=== PATIENT | female | born 1935 | race Caucasian/White ===

== ENCOUNTER 2016-11-19 12:16 | Observation (INO) | payer MEDICARE, BC ==
[2016-11-19 12:17] VITALS: BP 140/65; PULSE 88; RESP 14; TEMP 97.9; O2SAT 94
[2016-11-19 12:26] VITALS: BP 130/79; PULSE 74; RESP 16; TEMP 98; O2SAT 94
[2016-11-19] MEDS ORDERED: DILA30CA PO (12:35)
[2016-11-19] MEDS ORDERED: GABA300C5 PO (12:35)
[2016-11-19] MEDS ORDERED: PHEN-522 PO (12:35)
--- NOTE | 2016-11-19 12:38 | PD ---
HPI Chief Complaint: Chest Pain Time Seen by Provider: 12:34 Travel History International Travel<30 days: No Contact w/Intl Traveler<30days: No Traveled to known affect area: No History of Present Illness HPI 81-year-old female presents to the emergency department for evaluation of left- sided neck pain that radiates to her left arm. She states has been ongoing for 1 week. Patient states it is intermittent. She states at first, it was worse with movement of her neck, but it is no longer worse with movement. She denies any fevers or chills. No cough or congestion. She denies any abdominal pain. No nausea or vomiting. She denies any chest pain. She has a history of epilepsy and chronic back pain. She states she currently takes phenobarbital, Dilantin, oxycodone, and diclofenac patient denies any history of RI. She denies any history of diabetes. Patient states she cannot take blood thinners due to GI bleed, but does take a baby aspirin daily. She states she took one this morning. Patient denies any other complaints at this time. PFSH Past Medical History Medical other: Yes (EPILEPSY) Past Surgical History Cholecystectomy: Yes Social History Alcohol Use: No Tobacco Use: No Substance Use: No Allergies-Medications (Allergen,Severity, Reaction): Coded Allergies: No Known Allergies (Unverified , 11/19/16) Reported Meds & Prescriptions Reported Meds & Active Scripts Active Reported Diclofenac Sodium ER 24 HR (Diclofenac Sodium) 100 Mg Yg 100 Mg PO DAILY Gabapentin 300 Mg Cap 300 Mg PO TID Dilantin (Phenytoin Extended) 30 Mg Cap 100 Mg PO BID Phenobarbital 15 Mg Tab 64.8 Mg PO BID Review of Systems Except as stated in HPI: all other systems reviewed are Neg Physical Exam Narrative GENERAL: Well-developed well-nourished elderly female patient, afebrile. SKIN: Warm and dry. HEAD: Normocephalic. Atraumatic. EYES: No scleral icterus. No injection or drainage. NECK: Supple, trachea midline. No JVD or lymphadenopathy. CARDIOVASCULAR: Regular rate and rhythm without murmurs, gallops, or rubs. RESPIRATORY: Breath sounds equal bilaterally. No accessory muscle use. Lungs sounds are clear to auscultation GASTROINTESTINAL: Abdomen soft, non-tender, nondistended. MUSCULOSKELETAL: No cyanosis, or edema. BACK: Nontender without obvious deformity. No CVA tenderness. Data Data Last Documented VS Vital Signs Date Time Temp Pulse Resp B/P Pulse Ox O2 Delivery O2 Flow Rate FiO2 11/19/16 12:39 18 95 Room Air 11/19/16 12:39 77 130/79 124/70 11/19/16 12:26 98.0 Orders Electrocardiogram (11/19/16 ) Basic Metabolic Panel (Bmp) (11/19/16 12:33) Ckmb (Isoenzyme) Profile (11/19/16 12:33) Complete Blood Count With Diff (11/19/16 12:33) Magnesium (Mg) (11/19/16 12:33) Troponin I (11/19/16 12:33) Chest, Single Ap (11/19/16 12:33) Ecg Monitoring (11/19/16 12:33) Bilateral Bp Monitoring (11/19/16 12:33) Iv Access Insert/Monitor (11/19/16 12:33) Oximetry (11/19/16 12:33) Oxygen Administration (11/19/16 12:33) Sodium Chloride 0.9% Flush (Ns Flush) (11/19/16 12:45) Phenytoin (Dilantin) (11/19/16 12:33) Aspirin Chew (Aspirin Chew) (11/19/16 12:45) Ketorolac Inj (Toradol Inj) (11/19/16 13:00) Admit Order (Ed Use Only) (11/19/16 13:51) Labs Laboratory Tests Test 11/19/16 12:44 White Blood Count 5.3 TH/MM3 Red Blood Count 4.58 MIL/MM3 Hemoglobin 13.6 GM/DL Hematocrit 40.2 % Mean Corpuscular Volume 87.9 FL Mean Corpuscular Hemoglobin 29.6 PG Mean Corpuscular Hemoglobin 33.7 % Concent Red Cell Distribution Width 13.6 % Platelet Count 249 TH/MM3 Mean Platelet Volume 7.9 FL Neutrophils (%) (Auto) 56.0 % Lymphocytes (%) (Auto) 29.4 % Monocytes (%) (Auto) 9.1 % Eosinophils (%) (Auto) 4.1 % Basophils (%) (Auto) 1.4 % Neutrophils # (Auto) 3.0 TH/MM3 Lymphocytes # (Auto) 1.6 TH/MM3 Monocytes # (Auto) 0.5 TH/MM3 Eosinophils # (Auto) 0.2 TH/MM3 Basophils # (Auto) 0.1 TH/MM3 CBC Comment DIFF FINAL Differential Comment Sodium Level 140 MEQ/L Potassium Level 3.9 MEQ/L Chloride Level 107 MEQ/L Carbon Dioxide Level 24.2 MEQ/L Anion Gap 9 MEQ/L Blood Urea Nitrogen 12 MG/DL Creatinine 0.73 MG/DL Estimat Glomerular Filtration 77 ML/MIN Rate Random Glucose 89 MG/DL Calcium Level 8.6 MG/DL Magnesium Level 2.1 MG/DL Total Creatine Kinase 75 U/L Troponin I LESS THAN 0.02 NG/ML Phenytoin (Dilantin) Level 7.7 MCG/ML MDM Medical Decision Making Medical Screen Exam Complete: Yes Emergency Medical Condition: Yes Medical Record Reviewed: Yes Interpretation(s) Last Impressions Chest X-Ray 11/19/16 1233 Signed Impressions: Service Date/Time: November 12:32 - CONCLUSION: 1. Left basilar patchiness consistent with atelectasis and/or infiltrate. Clinical correlation is recommended. 2. Degenerative changes throughout the thoracic spine. Austin Mueller MD Differential Diagnosis Musculoskeletal pain versus ACS versus pneumonia versus muscle spasm Narrative Course 81-year-old elderly female presents to the emergency department for evaluation of left neck pain that radiates to her left arm for 1 week. Patient appears well on exam. Patient is given aspirin 81 mg by mouth. CBC, BMP, magnesium, CK , troponin, Dilantin level, chest x-ray are ordered and pending. EKG shows SR without acute ST changes. CBC .shows no acute abnormality. BMP is unremarkable. CK is 75. Troponin is less than 0.02. Magnesium is 2.1. Chest x-ray shows left basilar patchiness consistent with atelectasis and/or infiltrate; degenerative changes throughout the thoracic spine. Patient has no signs/symptoms of pneumonia. Most likely left basilar patchiness is atelectasis. The patient will be brought into the chest pain center to further rule out cardiac origin of pain. The patient is agreeable with this plan. Diagnosis Primary Impression: Neck pain on left side Admitting Information Admitting Physician Requests: Observation Keyonna Duran Nov 19, 2016 12:38 Keyonna Duran Nov 19, 2016 12:38
[2016-11-19 12:39] VITALS: BP_SYST 124; BP_SYST 130; BP_DIAS 70; BP_DIAS 79; PULSE 77; RESP 18; O2SAT 95
[2016-11-19] MEDS ORDERED: ASPIRIN 81 MG CHEW TAB CHEW ONE (12:45)
[2016-11-19] MEDS ORDERED: SODIUM CHLORIDE 0.9% FLUSH 5 ML FLUSH IVF PRN (12:45)
[2016-11-19] MEDS ORDERED: KETOROLAC TROMETHAMINE 30 MG/ML (IVP) VIAL IV PUSH ONE (13:00)
--- NOTE | 2016-11-19 13:05 | RADRPT ---
EXAM DATE/TIME: 11/19/2016 12:32 [facility] COMPARISON: No previous studies available for comparison. INDICATIONS : Back pain on right side MEDICAL HISTORY : None. SURGICAL HISTORY : None. ENCOUNTER: Initial ACUITY: 1 week PAIN SCORE: 0/10 LOCATION: Bilateral chest FINDINGS: Left basilar patchiness is noted consistent with atelectasis and/or infiltrate. Clinical correlation is recommended. The right lung is clear. The heart is normal. The pulmonary vascular pattern is a lso noted. Degenerative changes are noted throughout the thoracic spine. CONCLUSION: 1. Left basilar patchiness consistent with atelectasis and/or infiltrate. Clinical correlation is r ecommended. 2. Degenerative changes throughout the thoracic spine. Austin Mueller MD on November 19, 2016 at 13:00 Board Certified Radiologist. This report was verified electronically.
[2016-11-19 13:08] LABS: BASOPHIL # 0.1 TH/MM3 (0-0.2); BASOPHIL % 1.4 % (0.0-2.0); EOSINOPHIL # 0.2 TH/MM3 (0-0.4); EOSINOPHIL % 4.1 % (0.0-4.0); HEMATOCRIT 40.2 % (35.0-46.0); HEMO FLAGS DIFF FINAL; LYMPH % 29.4 % (9.0-44.0); LYMPHOCYTE # 1.6 TH/MM3 (1.0-4.8); MEAN CELL VOLUME 87.9 FL (80.0-100.0); MEAN CORPUSCULAR HEMOGLOBIN 29.6 PG (27.0-34.0); MEAN CORPUSCULAR HGB CONC 33.7 % (32.0-36.0); MONO % 9.1 % (0.0-8.0); PLATELET COUNT 249 TH/MM3 (150-450); RED BLOOD COUNT 4.58 MIL/MM3 (4.00-5.30); RED CELL DISTRIBUTION WIDTH 13.6 % (11.6-17.2); WHITE BLOOD COUNT 5.3 TH/MM3 (4.0-11.0)
--- NOTE | 2016-11-19 13:22 | PD ---
Physical Exam Date Seen by Provider: Nov 19, 2016 Time Seen by Provider: 13:00 Narrative GENERAL: Well-nourished, well-developed patient in no acute rest her distress. SKIN: Warm and dry. HEAD: Normocephalic/atraumatic. EYES: No scleral icterus. No injection or drainage. NECK: Supple, trachea midline. No JVD . CARDIOVASCULAR: Regular rate and rhythm without murmurs, gallops, or rubs. RESPIRATORY: Breath sounds equal bilaterally. No accessory muscle use. GASTROINTESTINAL: Abdomen soft, non-tender, nondistended. MUSCULOSKELETAL: No cyanosis, or edema. BACK: Nontender without obvious deformity. No CVA tenderness. Data Data Last Documented VS Vital Signs Date Time Temp Pulse Resp B/P Pulse Ox O2 Delivery O2 Flow Rate FiO2 11/19/16 12:39 18 95 Room Air 11/19/16 12:39 77 130/79 124/70 11/19/16 12:26 98.0 Orders Electrocardiogram (11/19/16 ) Basic Metabolic Panel (Bmp) (11/19/16 12:33) Ckmb (Isoenzyme) Profile (11/19/16 12:33) Complete Blood Count With Diff (11/19/16 12:33) Magnesium (Mg) (11/19/16 12:33) Troponin I (11/19/16 12:33) Chest, Single Ap (11/19/16 12:33) Ecg Monitoring (11/19/16 12:33) Bilateral Bp Monitoring (11/19/16 12:33) Iv Access Insert/Monitor (11/19/16 12:33) Oximetry (11/19/16 12:33) Oxygen Administration (11/19/16 12:33) Sodium Chloride 0.9% Flush (Ns Flush) (11/19/16 12:45) Phenytoin (Dilantin) (11/19/16 12:33) Aspirin Chew (Aspirin Chew) (11/19/16 12:45) Ketorolac Inj (Toradol Inj) (11/19/16 13:00) Admit Order (Ed Use Only) (11/19/16 13:51) Labs Laboratory Tests Test 11/19/16 12:44 White Blood Count 5.3 TH/MM3 Red Blood Count 4.58 MIL/MM3 Hemoglobin 13.6 GM/DL Hematocrit 40.2 % Mean Corpuscular Volume 87.9 FL Mean Corpuscular Hemoglobin 29.6 PG Mean Corpuscular Hemoglobin 33.7 % Concent Red Cell Distribution Width 13.6 % Platelet Count 249 TH/MM3 Mean Platelet Volume 7.9 FL Neutrophils (%) (Auto) 56.0 % Lymphocytes (%) (Auto) 29.4 % Monocytes (%) (Auto) 9.1 % Eosinophils (%) (Auto) 4.1 % Basophils (%) (Auto) 1.4 % Neutrophils # (Auto) 3.0 TH/MM3 Lymphocytes # (Auto) 1.6 TH/MM3 Monocytes # (Auto) 0.5 TH/MM3 Eosinophils # (Auto) 0.2 TH/MM3 Basophils # (Auto) 0.1 TH/MM3 CBC Comment DIFF FINAL Differential Comment Sodium Level 140 MEQ/L Potassium Level 3.9 MEQ/L Chloride Level 107 MEQ/L Carbon Dioxide Level 24.2 MEQ/L Anion Gap 9 MEQ/L Blood Urea Nitrogen 12 MG/DL Creatinine 0.73 MG/DL Estimat Glomerular Filtration 77 ML/MIN Rate Random Glucose 89 MG/DL Calcium Level 8.6 MG/DL Magnesium Level 2.1 MG/DL Total Creatine Kinase 75 U/L Troponin I LESS THAN 0.02 NG/ML Phenytoin (Dilantin) Level 7.7 MCG/ML [facility] Medical Record Reviewed: Yes Supervised Visit with ELIO: Yes Differential Diagnosis ACS versus pleurisy versus cervical spine radiculopathy Narrative Course 81-year-old female presents with one-week history of intermittent chest pain. The patient reports left sided pain radiates to her shoulder and down her left arm. Initial EKG shows no evidence of acute process. Creatinine enzymes are within normal limits. The concern is that this is atypical chest pain in a female with true cardiac etiology versus musculoskeletal/radiculopathy. Recommendation is we placed the patient in the chest pain center for rule out protocol. Diagnosis Primary Impression: Cervical radiculopathy Дмитрий Coles MD Nov 19, 2016 13:22
[2016-11-19 13:30] LABS: ANION GAP 9 MEQ/L (5-15); BICARBONATE 24.2 MEQ/L (21.0-32.0); BLOOD UREA NITROGEN 12 MG/DL (7-18); CHLORIDE 107 MEQ/L (98-107); GLOMERULAR FILTRATION RATE 77 ML/MIN (>89); MAGNESIUM 2.1 MG/DL (1.5-2.5); POTASSIUM 3.9 MEQ/L (3.5-5.1); SODIUM (NA) 140 MEQ/L (136-145)
[2016-11-19 13:39] LABS: CREATINE KINASE 75 U/L (26-192)
[2016-11-19] MEDS ORDERED: DICL100T PO (13:41)
--- NOTE | 2016-11-19 14:44 | HHI.DCPOC ---
Discharge Care Plan Diagnosis: (1) Cervical radiculopathy Goals to Promote Your Health * To prevent worsening of your condition and complications * To maintain your health at the optimal level Directions to Meet Your Goals Take your medications as prescribed Follow your dietary instruction Follow activity as directed Keep your appointments as scheduled Take your immunizations and boosters as scheduled If your symptoms worsen call your PCP, if no PCP go to Urgent Care Center or Emergency Room Smoking is Dangerous to Your Health. Avoid second hand smoke Call the 24-hour hour crisis hotline for domestic abuse at Paul Crystal Nov 19, 2016 14:44
--- NOTE | 2016-11-19 15:11 | HHI.HP ---
HPI Primary Care Physician Dain Bishop Chief Complaint Neck and left arm pain History of Present Illness This is a 81-year-old female that presents to ED via private vehicle complaining of neck discomfort that began a week and a half ago. Soon later she also had a burning discomfort going down her left arm radiating from the neck. It was worse with movement. She states she was given medication the ER and the neck discomfort is now gone but still has discomfort in her left arm. Reviewing her records she was given IV Toradol. She had no chest discomfort. Denies shortness of breath nausea or diaphoresis. Denies weakness in her extremities. Denies numbness in her extremities. She states she has arthritis and chronic neck issues. Review of Systems General: Patient denies fevers, chills recent, and recent travel HEENT: Patient denies headache, sore throat, difficulty swallowing. Cardiovascular: Denies chest pain. Denies sensation of heart beating rapidly or irregularly. No syncope. Respiratory: Denies shortness of breath or inspirational chest discomfort. Denies coughing wheezing or hemoptysis. GI: Patient denies nausea, vomiting, diarrhea, abdominal pain, bloody stools. Musculoskeletal: Complains of neck pain more so on the left side rating down her left arm. Hurts more with movement. Squeezing on the arm seems to feel a little better. Patient denies joint pain or edema. Denies calf pain or edema. Neurovascular: Patient denies numbness, tingling, weakness in extremities. Denies headache. Endocrine: Denies polyuria and polydipsia. Hematologic: Denies easy bruising. Skin: Denies rash or itching. Past Family Social History Allergies: Coded Allergies: No Known Allergies (Unverified , 11/19/16) Past Medical History * Seizure disorder however patient states her last seizure was 6 years ago. * Arthritis. * Chronic neck pain. 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 * Denies hypertension, hyperlipidemia, diabetes, and CAD. Reported Medications Reported Meds & Active Scripts Active Reported Gabapentin 300 Mg Cap 300 Mg PO TID Dilantin (Phenytoin Extended) 30 Mg Cap 100 Mg PO BID Phenobarbital 15 Mg Tab 64.8 Mg PO BID Active Ordered Medications Current Medications Medications (Trade) Dose Ordered Sig/Patrice Route Start Time Stop Time Status Last Admin (NS Flush) 2 ml UNSCH PRN IVF 11/19/16 12:45 Family History Denies family history of CAD. Social History Patient does not smoke, drink alcohol, or use illicit drugs. She has been for 61 years. Physical Exam Vital Signs Vital Signs Date Time Temp Pulse Resp B/P Pulse Ox O2 Delivery O2 Flow Rate FiO2 11/19/16 12:39 18 95 Room Air 11/19/16 12:39 77 130/79 124/70 11/19/16 12:39 95 Room Air 11/19/16 12:26 98.0 74 16 130/79 94 11/19/16 12:17 97.9 88 14 140/65 94 Room Air Physical Exam GENERAL: This is a well-nourished, well-developed patient, in no apparent distress. Patient speaks in clear complete sentences. Patient is pleasant. Her and daughter are at the bedside. HEENT: Head is atraumatic and normocephalic. Neck is supple without lymphadenopathy and trachea is midline. No JVD or carotid bruits. CARDIOVASCULAR: Regular rate and rhythm without gallops, or rubs. Grade 1-2 systolic murmur left sternal border. RESPIRATORY: Clear to auscultation. Breath sounds equal bilaterally. No wheezes , rales, or rhonchi. Chest wall is nontender. No use of accessory muscles. GASTROINTESTINAL: Abdomen is nontender, nondistended. Abdomen soft. No obvious pulsatile mass or bruit. No CVA tenderness. Strong femoral pulses bilaterally. Normal bowel sounds in all quadrants. MUSCULOSKELETAL: Patient is moving upper and lower extremities freely. However there is discomfort with rotation of the cervical spine. No discomfort with flexion-extension of the cervical spine. Discomfort that has been radiating down her left arm is worsened with turning of her head. Strong boiler washer strength bilaterally. No calf tenderness or edema, no Homans sign. Strong pulses in upper and lower extremities. NEUROLOGICAL: Patient is alert and oriented. Cranial nerves 2-12 are grossly intact. No focal deficits and speech is clear. Strong boiler washer strength bilaterally. SKIN: No rash and turgor is normal. Laboratory Laboratory Tests Test 11/19/16 12:44 White Blood Count 5.3 Red Blood Count 4.58 Hemoglobin 13.6 Hematocrit 40.2 Mean Corpuscular Volume 87.9 Mean Corpuscular Hemoglobin 29.6 Mean Corpuscular Hemoglobin 33.7 Concent Red Cell Distribution Width 13.6 Platelet Count 249 Mean Platelet Volume 7.9 Neutrophils (%) (Auto) 56.0 Lymphocytes (%) (Auto) 29.4 Monocytes (%) (Auto) 9.1 Eosinophils (%) (Auto) 4.1 Basophils (%) (Auto) 1.4 Neutrophils # (Auto) 3.0 Lymphocytes # (Auto) 1.6 Monocytes # (Auto) 0.5 Eosinophils # (Auto) 0.2 Basophils # (Auto) 0.1 CBC Comment DIFF FINAL Differential Comment Sodium Level 140 Potassium Level 3.9 Chloride Level 107 Carbon Dioxide Level 24.2 Anion Gap 9 Blood Urea Nitrogen 12 Creatinine 0.73 Estimat Glomerular Filtration 77 Rate Random Glucose 89 Calcium Level 8.6 Magnesium Level 2.1 Total Creatine Kinase 75 Troponin I LESS THAN 0.02 Phenytoin (Dilantin) Level 7.7 Result Diagram: 11/19/16 1244 11/19/16 1244 Imaging Last Impressions Chest X-Ray 11/19/16 1233 Signed Impressions: Service Date/Time: November 12:32 - CONCLUSION: 1. Left basilar patchiness consistent with atelectasis and/or infiltrate. Clinical correlation is recommended. 2. Degenerative changes throughout the thoracic spine. Austin Mueller MD Course Initial EKG has sinus rhythm without significant ST segment depressions or elevations. Assessment and Plan Assessment and Plan * Cervical radiculopathy: Patient was given Toradol in the ED and is feeling better. She was seen by Dr. Nguyen cardiology and the chest pain center. Labs and EKG are normal. She will be discharged home at this time with no further cardiac workup. Her discomforts are musculoskeletal. She has been advised to follow-up with her primary care physician for her neck issues. Paul Crystal Nov 19, 2016 15:11
[2016-11-19 16:17] VITALS: BP 134/70; TEMP 98.2
--- NOTE | 2016-11-20 17:56 | EKG ---
Date Performed: 11/19/2016 Time Performed: 12:29:33 PTAGE: 81 years EKG: Sinus rhythm BORDERLINE LEFT AXIS DEVIATION BORDERLINE ECG NO PREVIOUS TRACING DOCTOR: Roshan Nguyen Interpretating Date/Time 11/24/2016 07:16:17
== END 2016-11-19 16:00 | disposition home or self-care (01) ==
LOC: NEPC 12:16 → NEDA 13:53 → UNDODEPER 23:40
DX: M54.12 Radiculopathy, cervical region (principal); R07.9 Chest pain, unspecified; G40.909 Epilepsy, unspecified, not intractable, without status epilepticus; R94.31 Abnormal electrocardiogram [ECG] [EKG]; J98.11 Atelectasis; M19.90 Unspecified osteoarthritis, unspecified site; Z86.718 Personal history of other venous thrombosis and embolism
CPT/HCPCS: 71010; 80048; 80185; 82550; 83735; 84484; 85025; 93005; 96374; 99285; G0378; J1885

== ENCOUNTER 2017-03-08 12:10 | Observation (INO) | payer MEDICARE, BC ==
[~2017-03-08] VITALS: Ht 165.1 cm; Wt 83.2 kg
[~2017-03-08 12:10] MED LIST: DILA30CA PO; GABA300C5 PO; PHEN-522 PO
[2017-03-08 12:13] VITALS: BP 126/60; PULSE 74; RESP 20; TEMP 97.8; O2SAT 97
--- NOTE | 2017-03-08 12:18 | PD ---
HPI Chief Complaint: Fall Time Seen by Provider: 12:18 Travel History International Travel<30 days: No Contact w/Intl Traveler<30days: No Traveled to known affect area: No History of Present Illness HPI 81-year-old female presents emergency Department with fall on outstretched hand with complaints of right wrist pain and swelling. 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 She is not diabetic. Patient wears support hose to prevent DVTs. She only takes aspirin daily but no other anticoagulation. She denies any other injury. She did not hit her head or have loss of consciousness. She states she ate at approximate 7:30 this morning. Her pain is localized to the right wrist. She has no neurovascular complaints otherwise. She has no right elbow or shoulder pain. She has no known drug allergies. FOR[facility]LY [facility] Past Medical History Neurologic: Yes (NEUROPATHY) ?: Not Past Surgical History Cholecystectomy: Yes Social History Alcohol Use: No Tobacco Use: No Substance Use: No Allergies-Medications (Allergen,Severity, Reaction): Coded Allergies: No Known Allergies (Unverified , 03/08/17) Reported Meds & Prescriptions Reported Meds & Active Scripts Active Reported Gabapentin 100 Mg Cap 300 Mg PO TID Dilantin (Phenytoin Extended) 30 Mg Cap 100 Mg PO BID Phenobarbital 15 Mg Tab 64.8 Mg PO BID Review of Systems Except as stated in HPI: all other systems reviewed are Neg General / Constitutional: No: Fever Eyes: No: Visual changes HENT: No: Headaches Cardiovascular: No: Chest Pain or Discomfort Respiratory: No: Shortness of Breath Gastrointestinal: No: Abdominal Pain Genitourinary: No: Dysuria Musculoskeletal: Positive: Arthralgias, Limited ROM, Pain Skin: No Rash Neurologic: No: Weakness Psychiatric: No: Depression Endocrine: No: Polydipsia Hematologic/Lymphatic: No: Easy Bruising Physical Exam Narrative GENERAL: Patient appears in mild to moderate distress. SKIN: Warm and dry. Normal color. Normal turgor. No abrasions or lacerations. HEAD: Atraumatic. Normocephalic. EYES: Pupils equal and round. No scleral icterus. No injection or drainage. ENT: No nasal bleeding or discharge. Mucous membranes pink and moist. Pharynx is clear. NECK: Trachea midline. Nontender and supple. CARDIOVASCULAR: Regular rate and rhythm. RESPIRATORY: No accessory muscle use. Clear to auscultation. Breath sounds equal bilaterally. MUSCULOSKELETAL: Extremities without clubbing, cyanosis, or edema. Patient has swelling over the right wrist. Patient has decreased aeration and supination secondary to pain, as well as decreased quantitative analyst marketing strength however neurovascular exam is intact distally. Patient has no right elbow or shoulder pain. Patient has no injury to the left upper extremity or lower extremities at this time. NEUROLOGICAL: Awake and alert. No obvious cranial nerve deficits. Motor grossly within normal limits. Five out of 5 muscle strength in the arms and legs. Normal speech. PSYCHIATRIC: Appropriate mood and affect; insight and judgment normal. Data Data Last Documented VS Vital Signs Date Time Temp Pulse Resp B/P Pulse Ox O2 Delivery O2 Flow Rate FiO2 03/08/17 14:04 17 03/08/17 12:13 97.8 74 126/60 97 Room Air Orders Wrist, Complete ([id number]) (03/08/17 ) Acetamin-Hydrocod 325-5 Mg ([place] 5-325 (03/08/17 12:45) Lidocai-Epi 1%-1:100,000 Inj (Xylocaine- (03/08/17 13:45) Splinting (03/08/17 ) Lidocai-Epi 1%-1:100,000 Inj (Xylocaine- (03/08/17 14:00) Lidocai-Epi 1%-1:100,000 Inj (Xylocaine- (03/08/17 14:00) (Hub Use Only)Inp Phy Cons/Ref (03/08/17 ) Wrist, Limited (Ap&Lat) (03/08/17 14:20) Ice/Cold Pack (03/08/17 14:20) Fiberglass Sugartong Sp Ad Arm (03/08/17 ) Sling Cradle Arm (03/08/17 ) Complete Blood Count With Diff (03/08/17 15:21) Comprehensive Metabolic Panel (03/08/17 15:21) Prothrombin Time / Inr (Pt) (03/08/17 15:21) Act Partial Throm Time (Ptt) (03/08/17 15:21) Iv Access Insert/Monitor (03/08/17 15:21) Ecg Monitoring (03/08/17 15:21) Oximetry (03/08/17 15:21) Electrocardiogram (03/08/17 15:21) Chest, Single Ap (03/08/17 15:21) Diet Heart Healthy (03/08/17 Lunch) Consult Orthopedic (03/08/17 15:36) Admit Order (Ed Use Only) (03/08/17 15:47) Labs Laboratory Tests Test 03/08/17 14:38 White Blood Count 7.2 TH/MM3 Red Blood Count 4.45 MIL/MM3 Hemoglobin 13.3 GM/DL Hematocrit 40.1 % Mean Corpuscular Volume 90.2 FL Mean Corpuscular Hemoglobin 30.0 PG Mean Corpuscular Hemoglobin 33.2 % Concent Red Cell Distribution Width 14.6 % Platelet Count 210 TH/MM3 Mean Platelet Volume 8.1 FL Neutrophils (%) (Auto) 55.8 % Lymphocytes (%) (Auto) 31.4 % Monocytes (%) (Auto) 7.2 % Eosinophils (%) (Auto) 4.2 % Basophils (%) (Auto) 1.4 % Neutrophils # (Auto) 4.0 TH/MM3 Lymphocytes # (Auto) 2.3 TH/MM3 Monocytes # (Auto) 0.5 TH/MM3 Eosinophils # (Auto) 0.3 TH/MM3 Basophils # (Auto) 0.1 TH/MM3 CBC Comment DIFF FINAL Differential Comment Prothrombin Time 10.8 SEC Prothromb Time International 1.0 RATIO Ratio Activated Partial 21.0 SEC Thromboplast Time Sodium Level 142 MEQ/L Potassium Level 5.1 MEQ/L Chloride Level 106 MEQ/L Carbon Dioxide Level 28.7 MEQ/L Anion Gap 7 MEQ/L Blood Urea Nitrogen 9 MG/DL Creatinine 0.74 MG/DL Estimat Glomerular Filtration 75 ML/MIN Rate Random Glucose 85 MG/DL Calcium Level 8.6 MG/DL Total Bilirubin 0.2 MG/DL Aspartate Amino Transf 37 U/L (AST/SGOT) Alanine Aminotransferase 38 U/L (ALT/SGPT) Alkaline Phosphatase 108 U/L Total Protein 7.5 GM/DL Albumin 3.2 GM/DL [facility] Medical Decision Making Medical Screen Exam Complete: Yes Emergency Medical Condition: Yes Medical Record Reviewed: Yes Differential Diagnosis Fall on outstretched hand. Right wrist contusion. Right wrist fracture. Narrative Course Patient is medically stable at time of exam. X-ray of the right wrist is ordered. Patient is given Lortab 5/325 by mouth. X-ray shows comminuted fracture of distal radius with some dorsal angulation and compaction. Patient was discussed with Dr. Russ physician assistant professor of criminal justice, and reduction was recommended. Patient is placed in a sugar tong splint with Orthotec after local block was placed of 1% Xylocaine with epinephrine with good anesthetic effect. Repeat x-ray of the right wrist post reduction is obtained. 1515 [address] Patient discussed with Dr. Russ' physician assistant professor of criminal justice who reviews the x-rays with Dr. Russ. They recommend admission for open reduction and fixation tomorrow morning. Patient is informed of this and agrees to stay. Labs ordered including EKG, CBC, CMP, PT PTT and INR, and chest x-ray. CBC is unremarkable. Coagulation studies are unremarkable. CMP is unremarkable. Chest x-ray is unremarkable for acute process. Patient is not requesting anything for pain at this time. Call was placed to the hospitalist for admission. Patient is to be nothing by mouth after midnight. Consult was placed for Dr. Hawthorne, who will perform surgery tomorrow morning. Diagnosis Primary Impression: Closed fracture of right distal radius Qualified Code: S52.571A - Other closed intra-articular fracture of distal end of right radius, initial encounter Admitting Information Admitting Physician Requests: Observation Condition: Stable Woodrow Manley March 08, 2017 12:18
[2017-03-08] MEDS ORDERED: GABA100C4 PO (12:32)
[2017-03-08] MEDS ORDERED: ACETAMINOPHEN/HYDROcodone 325 MG/5 MG TAB PO ONE (12:45)
--- NOTE | 2017-03-08 13:20 | RADRPT ---
EXAM DATE/TIME: 03/08/2017 12:50 [facility] COMPARISON: No previous studies available for comparison. INDICATIONS : Fell today pain 360 degrees around right wrist MEDICAL HISTORY : None. SURGICAL HISTORY : None. ENCOUNTER: Initial ACUITY: 1 day PAIN SCORE: 10/10 LOCATION: Right wrist FINDINGS: 3 views of the right wrist demonstrate a transverse fracture of the distal radial metaphysis with ext ension into the distal radial ulnar joint. There is dorsal angulation of the distal fragment. Carpal bones appear intact. No distal ulnar fracture is visualized. The bones are undermineralized. There is soft tissue swelling. CONCLUSION: There is a transverse fracture of the distal radial metaphysis with dorsal angulation of the distal f ragment. Balbir Dooley MD on March 08, 2017 at 13:17 Board Certified Radiologist. This report was verified electronically.
[2017-03-08] MEDS ORDERED: LIDOCAINE 1%/EPINEPHrine 1:100,000 SOLN 20 ML VIAL INFIL ONE ×3 (13:45→14:00)
--- NOTE | 2017-03-08 14:51 | RADRPT ---
EXAM DATE/TIME: 03/08/2017 14:35 [facility] COMPARISON: WRIST RIGHT COMPLETE ([id number]), March 08, 2017, 12:50. INDICATIONS : Post reduction right wrist. MEDICAL HISTORY : None. SURGICAL HISTORY : None. ENCOUNTER: Subsequent ACUITY: 1 day PAIN SCORE: 2/10 LOCATION: Right wrist FINDINGS: AP and lateral views of the right wrist following casting demonstrate a transverse fracture through t he distal radial metaphysis with dorsal angulation of the distal fragment not significantly changed i n orientation from the prior study. There is soft tissue swelling around the wrist. CONCLUSION: There is persistent dorsal angulation of the distal radial fracture fragment following closed reducti on and casting. No significant change in degree of angulation is appreciated. Balbir Dooley MD on March 08, 2017 at 14:48 Board Certified Radiologist. This report was verified electronically.
--- NOTE | 2017-03-08 15:40 | PD ---
Data Data Last Documented VS Vital Signs Date Time Temp Pulse Resp B/P Pulse Ox O2 Delivery O2 Flow Rate FiO2 03/08/17 14:04 17 03/08/17 12:13 97.8 74 126/60 97 Room Air Orders Wrist, Complete (Sct1hei) (03/08/17 ) Acetamin-Hydrocod 325-5 Mg ([place] 5-325 (03/08/17 12:45) Lidocai-Epi 1%-1:100,000 Inj (Xylocaine- (03/08/17 13:45) Splinting (03/08/17 ) Lidocai-Epi 1%-1:100,000 Inj (Xylocaine- (03/08/17 14:00) Lidocai-Epi 1%-1:100,000 Inj (Xylocaine- (03/08/17 14:00) (Hub Use Only)Inp Phy Cons/Ref (03/08/17 ) Wrist, Limited (Ap&Lat) (03/08/17 14:20) Ice/Cold Pack (03/08/17 14:20) Fiberglass Sugartong Sp Ad Arm (03/08/17 ) Sling Cradle Arm (03/08/17 ) Complete Blood Count With Diff (03/08/17 15:21) Comprehensive Metabolic Panel (03/08/17 15:21) Prothrombin Time / Inr (Pt) (03/08/17 15:21) Act Partial Throm Time (Ptt) (03/08/17 15:21) Iv Access Insert/Monitor (03/08/17 15:21) Ecg Monitoring (03/08/17 15:21) Oximetry (03/08/17 15:21) Electrocardiogram (03/08/17 15:21) Chest, Single Ap (03/08/17 15:21) Diet Heart Healthy (03/08/17 Lunch) Consult Orthopedic (03/08/17 15:36) MDM Supervised Visit with ELIO: Yes Narrative Course The history, exam, and medical decision-making in the associated mid-level provider note were completed with my assistance. I reviewed and agree with the findings presented. I attest that I had a [id number] encounter with the patient on the same day, and personally performed and documented my assessment and findings in the medical record. *My assessment and Findings: 81-year-old woman with a fall on the outstretched right wrist. She is a history of neuropathy and got tangled up over a magazine rack while she was walking. PA reduced wrist following hematoma block. Splint was applied. Spoke with Dr. De La Vega, on-call for orthopedics, patient will be admitted for repair. Diagnosis Primary Impression: Closed fracture of right distal radius Qualified Code: S52.571A - Other closed intra-articular fracture of distal end of right radius, initial encounter Condition: Stable Claudy Zavaleta MD March 08, 2017 15:40
[2017-03-08 15:50] LABS: BASOPHIL # 0.1 TH/MM3 (0-0.2); BASOPHIL % 1.4 % (0.0-2.0); EOSINOPHIL # 0.3 TH/MM3 (0-0.4); EOSINOPHIL % 4.2 % (0.0-4.0); HEMATOCRIT 40.1 % (35.0-46.0); HEMO FLAGS DIFF FINAL; LYMPH % 31.4 % (9.0-44.0); LYMPHOCYTE # 2.3 TH/MM3 (1.0-4.8); MEAN CELL VOLUME 90.2 FL (80.0-100.0); MEAN CORPUSCULAR HGB CONC 33.2 % (32.0-36.0); MONO % 7.2 % (0.0-8.0); NEUT % 55.8 % (16.0-70.0); PLATELET COUNT 210 TH/MM3 (150-450); RED BLOOD COUNT 4.45 MIL/MM3 (4.00-5.30); RED CELL DISTRIBUTION WIDTH 14.6 % (11.6-17.2); WHITE BLOOD COUNT 7.2 TH/MM3 (4.0-11.0)
[2017-03-08] MEDS ORDERED: ACETAMINOPHEN/HYDROcodone 325 MG/5 MG TAB PO PRN (16:00)
[2017-03-08] MEDS ORDERED: SODIUM CHLORIDE 0.9% FLUSH 10 ML FLUSH IV FLUSH PRN (16:00)
[2017-03-08] MEDS ORDERED: MAGNESIUM HYDROXIDE SUSP 30 ML CUP PO PRN (16:00)
[2017-03-08] MEDS ORDERED: LACTULOSE SYRUP 20 GM/30 ML CUP PO PRN (16:00)
[2017-03-08] MEDS ORDERED: BISACODYL 10 MG SUPP RECTAL PRN (16:00)
[2017-03-08] MEDS ORDERED: ACETAMINOPHEN 325 MG TAB PO PRN (16:00)
[2017-03-08] MEDS ORDERED: NALOXONE HCL 0.4 MG/ML AMP IV PRN (16:00)
[2017-03-08] MEDS ORDERED: SENNOSIDES 8.6 MG TAB PO PRN (16:00)
[2017-03-08] MEDS ORDERED: ONDANSETRON HCL 4 MG/2 ML VIAL IVP PRN (16:00)
[2017-03-08 16:04] LABS: PROTHROMBIN TIME - PATIENT 10.8 SEC (9.8-11.6)
[2017-03-08 16:09] LABS: ALKALINE PHOSPHATASE 108 U/L (45-117); TOTAL BILIRUBIN ADULT 0.2 MG/DL (0.2-1.0)
[2017-03-08 16:33] VITALS: RESP 18; O2SAT 95
[2017-03-08 16:34] VITALS: BP 113/56; PULSE 66; RESP 18; O2SAT 95
[2017-03-08 16:35] LABS: ALT (GPT) 38 U/L (10-53); ANION GAP 7 MEQ/L (5-15); AST (GOT) 37 U/L (15-37); BICARBONATE 28.7 MEQ/L (21.0-32.0); BLOOD UREA NITROGEN 9 MG/DL (7-18); CHLORIDE 106 MEQ/L (98-107); GLOMERULAR FILTRATION RATE 75 ML/MIN (>89); POTASSIUM 5.1 MEQ/L (3.5-5.1); SODIUM (NA) 142 MEQ/L (136-145)
--- NOTE | 2017-03-08 16:50 | RADRPT ---
EXAM DATE/TIME: 03/08/2017 15:42 [facility] COMPARISON: CHEST SINGLE AP, November 19, 2016, 12:32. INDICATIONS : Evaluation for pneumonia, pneumothorax, and communicable disease. MEDICAL HISTORY : None. SURGICAL HISTORY : None. ENCOUNTER: Initial ACUITY: 1 day PAIN SCORE: 0/10 LOCATION: Bilateral chest FINDINGS: Minimal streakiness is noted within the left lung base consistent with atelectasis and/or minimal inf iltrate. Clinical correlation is recommended. The right lung is clear. The heart is stable. Degen erative changes are noted throughout the thoracic spine. CONCLUSION: 1. Minimal streakiness within the left lung base consistent with atelectasis and/or mild infiltrates. Clinical correlation is recommended. 2. Degenerative changes involving the thoracic spine. Austin Mueller MD on March 08, 2017 at 15:58 Board Certified Radiologist. This report was verified electronically.
[2017-03-08] MEDS: HEPARIN SODIUM - SQ 10,000 UNITS/ML VIAL SQ SCH (17:00)
[2017-03-08 17:38] VITALS: BP 123/75; PULSE 75; RESP 18; TEMP 96.6; O2SAT 98
--- NOTE | 2017-03-08 17:52 | HHI.HP ---
[facility] Service [facility] Primary Care Physician Roshan Landrum MD Admission Diagnosis Right Distal Radial Fracture Diagnoses: Travel History International Travel<30 Days: No Contact w/Intl Traveler <30 Da: No Traveled to Known Affected Are: No History of Present Illness Written by Randy Goldberg, acting as scribe for Dr. Beckford on 03/08/17 at 17:32. 81-year-old female with a past medical history of seizure disorder, DVT, neuropathy with foot drop who presented after a fall on the outstretched hand. The patient states that she was dusting today, and tripped over a magazine rack. She fell onto her outstretched right hand onto a wooden floor. She did notice immediate deformity of her right wrist. She denies any other head trauma or injury. She states she didn't initially have any pain, but does have some discomfort in her right wrist now. She has no other medical complaints at this time. Orthopedics was consulted for probable operative repair in the morning. The patient states that she had a history of right leg DVT many years ago for which she was on Coumadin, but was taken off by her physician after she had GI bleeding. The patient's last seizure was over 50 years ago. The patient does have a history of lower extremity neuropathy with foot drop for which she uses a cane and a walker for ambulation. Review of Systems Except as stated in HPI: all other systems reviewed are Neg Past Family Social History Past Medical History Seizure disorder DVT Neuropathy with foot drop Past Surgical History Cholecystectomy Left wrist fracture repair Reported Medications Gabapentin 100 Mg Cap 300 Mg PO TID Dilantin (Phenytoin Extended) 30 Mg Cap 100 Mg PO BID Phenobarbital 15 Mg Tab 64.8 Mg PO BID Allergies: Coded Allergies: No Known Allergies (Unverified , 03/08/17) Active Ordered Medications Current Medications Medications (Trade) Dose Ordered Sig/Patrice Route Start Time Stop Time Status Last Admin (Neurontin) 300 mg TID PO 03/08/17 18:00 (Dilantin) 100 mg BID PO 03/08/17 21:00 (PHENobarbital) 64.8 mg BID PO 03/08/17 21:00 (NS Flush) 2 ml UNSCH PRN IV FLUSH 03/08/17 16:00 (NS Flush) 2 ml BID IV FLUSH 03/08/17 21:00 (Tylenol) 650 mg Q4H PRN PO 03/08/17 16:00 (Zofran Inj) 4 mg Q6H PRN IVP 03/08/17 16:00 (Heparin Inj) 5,000 units Q12H SQ 03/08/17 17:00 (Narcan Inj) 0.4 mg UNSCH PRN IV 03/08/17 16:00 (Shelbie-Colace) 1 tab BID PO 03/08/17 21:00 (Milk Of Magnesia Liq) 30 ml Q12H PRN PO 03/08/17 16:00 (Senokot) 17.2 mg Q12H PRN PO 03/08/17 16:00 (Dulcolax Supp) 10 mg DAILY PRN RECTAL 03/08/17 16:00 (Lactulose Liq) 30 ml DAILY PRN PO 03/08/17 16:00 ([place] 5-325 Mg) 1 tab Q4H PRN PO 03/08/17 16:00 ([place] 7.5-325 Mg) 1 tab Q4H PRN PO 03/08/17 16:00 Family History Father had diabetes Social History The patient quit smoking over 30 years ago, but prior to that had smoked one pack per day, but she is not sure for how many years Denies any alcohol use Lives at home Physical Exam Vital Signs Vital Signs Date Time Temp Pulse Resp B/P Pulse Ox O2 Delivery O2 Flow Rate FiO2 03/08/17 16:34 66 18 113/56 95 Room Air 03/08/17 16:33 18 95 Room Air 03/08/17 14:04 17 03/08/17 12:13 97.8 74 20 126/60 97 Room Air Physical Exam GENERAL: Well-developed well-nourished. In no acute distress. SKIN: Warm and dry. No lesions noted. HEENT: Normocephalic. Pupils equal and round. Mucous membranes pink and moist. CARDIOVASCULAR: Regular rate and rhythm. No murmur appreciated. RESPIRATORY: No accessory muscle use. Clear to auscultation. Breath sounds equal bilaterally. GASTROINTESTINAL: Abdomen soft, non-tender, nondistended. Bowel sounds x4. MUSCULOSKELETAL: Right wrist splinted. No clubbing or cyanosis. No edema. NEUROLOGICAL: Awake and alert. No focal neurological deficits. Moves upper and lower extremities spontaneously. Normal speech. Motor and sensory grossly intact in the right hand. PSYCHIATRIC: Appropriate mood and affect; insight and judgment normal. Laboratory Laboratory Tests Test 03/08/17 14:38 White Blood Count 7.2 Red Blood Count 4.45 Hemoglobin 13.3 Hematocrit 40.1 Mean Corpuscular Volume 90.2 Mean Corpuscular Hemoglobin 30.0 Mean Corpuscular Hemoglobin 33.2 Concent Red Cell Distribution Width 14.6 Platelet Count 210 Mean Platelet Volume 8.1 Neutrophils (%) (Auto) 55.8 Lymphocytes (%) (Auto) 31.4 Monocytes (%) (Auto) 7.2 Eosinophils (%) (Auto) 4.2 Basophils (%) (Auto) 1.4 Neutrophils # (Auto) 4.0 Lymphocytes # (Auto) 2.3 Monocytes # (Auto) 0.5 Eosinophils # (Auto) 0.3 Basophils # (Auto) 0.1 CBC Comment DIFF FINAL Differential Comment Prothrombin Time 10.8 Prothromb Time International 1.0 Ratio Activated Partial 21.0 Thromboplast Time Sodium Level 142 Potassium Level 5.1 Chloride Level 106 Carbon Dioxide Level 28.7 Anion Gap 7 Blood Urea Nitrogen 9 Creatinine 0.74 Estimat Glomerular Filtration 75 Rate Random Glucose 85 Calcium Level 8.6 Total Bilirubin 0.2 Aspartate Amino Transf 37 (AST/SGOT) Alanine Aminotransferase 38 (ALT/SGPT) Alkaline Phosphatase 108 Total Protein 7.5 Albumin 3.2 Result Diagram: 03/08/17 1438 03/08/17 1438 Imaging Last Impressions Chest X-Ray 03/08/17 1521 Signed Impressions: Service Date/Time: Wednesday, March 08, 2017 15:42 - CONCLUSION: 1. Minimal streakiness within the left lung base consistent with atelectasis and/or mild infiltrates. Clinical correlation is recommended. 2. Degenerative changes involving the thoracic spine. Austin Mueller MD Wrist X-Ray 03/08/17 1420 Signed Impressions: Service Date/Time: Wednesday, March 08, 2017 14:35 - CONCLUSION: There is persistent dorsal angulation of the distal radial fracture fragment following closed reduction and casting. No significant change in degree of angulation is appreciated. Balbir Dooley MD Assessment and Plan Assessment and Plan 81-year-old female with a past medical history of seizure disorder, DVT, neuropathy with foot drop who presented after a fall on the outstretched hand Right distal radial fracture s/p FOOSH injury: Reviewed: Right wrist x-ray shows transverse fracture of the distal radial metaphysis with dorsal angulation of the distal fragment. -Orthopedics was consulted, NPO for probable operative repair tomorrow -[place] for pain control -PT -Anticoagulation per orthopedics Seizure disorder: Chronic, stable. Continue home Dilantin and phenobarbital. Neuropathy: Chronic, stable. Continue home gabapentin. PT eval with foot drop. DVT prophylaxis: Heparin This note was transcribed by jair [Randy Goldberg]. I, Dr. Alaina Beckford personally performed the history, physical exam, and medical decision making; and confirmed the accuracy of the information in the transcribed note. Authenticated by Dr. Alaina Beckford on 03/08/17 at 1740. Discussed Condition With Patient, ED staff, Randy Yee March 08, 2017 17:52 Alaina Beckford MD March 08, 2017 19:20
[2017-03-08] MEDS: ACETAMINOPHEN/HYDROcodone 325 MG/7.5 MG TAB PO PRN ×2 (18:12→21:47)
[2017-03-08] MEDS: GABAPENTIN 300 MG CAP PO SCH (18:19)
[2017-03-08 20:50] VITALS: BP 123/79; PULSE 93; RESP 17; TEMP 96.9; O2SAT 95
[2017-03-08] MEDS: DOCUSATE SODIUM 50 MG/SENNA 8.6 MG TAB PO SCH (20:59)
[2017-03-08] MEDS: PHENYTOIN SODIUM 100 MG CAP PO SCH (20:59)
[2017-03-08] MEDS: SODIUM CHLORIDE 0.9% FLUSH 10 ML FLUSH IV FLUSH SCH (20:59)
[2017-03-08] MEDS: PHENobarbital 32.4 MG TAB PO SCH (21:06)
[2017-03-09 00:35] VITALS: BP 117/61; PULSE 75; RESP 17; TEMP 96.7; O2SAT 96
[2017-03-09] MEDS: ACETAMINOPHEN/HYDROcodone 325 MG/7.5 MG TAB PO PRN ×5 (01:39→20:26)
[2017-03-09] MEDS ORDERED: CHLORHEXIDINE GLUCONATE 2 % 1 PACK (2 CLOTHS) TOPICAL PRN (03:15)
[2017-03-09] MEDS ORDERED: LACTATED RINGER'S 1000 ML IV PRN (03:15)
[2017-03-09] MEDS ORDERED: METOPROLOL TARTRATE 25 MG TAB PO PRN (03:15)
[2017-03-09] MEDS ORDERED: INSULIN HUMAN REGULAR 1,000 UNITS/10 ML VIAL SQ PRN (03:15)
[2017-03-09] MEDS ORDERED: SODIUM CHLORID 0.9% 500 ML IV PRN (03:15)
[2017-03-09] MEDS ORDERED: POVIDONE IODINE 5% (ANTISEPSIS KIT) 4 APPLICATIONS EACH NARE PRN (03:15)
[2017-03-09 04:15] VITALS: BP 108/59; PULSE 78; RESP 17; TEMP 97.6; O2SAT 98
[2017-03-09] MEDS: HEPARIN SODIUM - SQ 10,000 UNITS/ML VIAL SQ SCH ×2 (04:46→16:37)
--- NOTE | 2017-03-09 06:44 | PD.ORT.PN ---
Subjective Subjective Remarks s/p fall at home. right wrist pain. no other complaints. history of chronic dropfoot bilaterally Objective Vitals Vital Signs Date Time Temp Pulse Resp B/P Pulse Ox O2 Delivery O2 Flow Rate FiO2 03/09/17 04:15 97.6 78 17 108/59 98 03/09/17 02:37 18 03/09/17 00:35 96.7 75 17 117/61 96 03/08/17 20:50 96.9 93 17 123/79 95 03/08/17 17:38 96.6 75 18 123/75 98 03/08/17 16:34 66 18 113/56 95 Room Air 03/08/17 16:33 18 95 Room Air 03/08/17 14:04 17 03/08/17 12:13 97.8 74 20 126/60 97 Room Air I/O 03/08/17 03/08/17 03/08/17 03/09/17 03/09/17 03/09/17 07:00 15:00 23:00 07:00 15:00 23:00 Intake Total 240 ml Balance 240 ml Intake Oral 240 ml # Voids 2 2 # Bowel Movements 0 0 Result Diagram: 03/08/17 1438 03/08/17 1438 Other Results Laboratory Tests Test 03/08/17 14:38 Prothrombin Time 10.8 SEC (9.8-11.6) Prothromb Time International 1.0 RATIO Ratio Imaging Last 24 hours Impressions Chest X-Ray 03/08/17 1521 Signed Impressions: Service Date/Time: Wednesday, March 08, 2017 15:42 - CONCLUSION: 1. Minimal streakiness within the left lung base consistent with atelectasis and/or mild infiltrates. Clinical correlation is recommended. 2. Degenerative changes involving the thoracic spine. Austin Mueller MD Wrist X-Ray 03/08/17 1420 Signed Impressions: Service Date/Time: Wednesday, March 08, 2017 14:35 - CONCLUSION: There is persistent dorsal angulation of the distal radial fracture fragment following closed reduction and casting. No significant change in degree of angulation is appreciated. Balbir Dooley MD Objective Remarks RUE: +sugar tong splint. NVI. +swelling of fingers. Assessment & Plan Assessment and Plan 1) Right distal Radius Fx -NWB -NPO -maintain splint -consents -surgery today Quique Melgar March 09, 2017 06:44
--- NOTE | 2017-03-09 07:15 | HHI.FPPN ---
Subjective Remarks "I AM READY FOR SURGERY AT [facility] TODAY" NO C/O D/W RN Objective Vitals Vital Signs Date Time Temp Pulse Resp B/P Pulse Ox O2 Delivery O2 Flow Rate FiO2 03/09/17 06:58 18 03/09/17 04:15 97.6 78 17 108/59 98 03/09/17 00:35 96.7 75 17 117/61 96 03/08/17 20:50 96.9 93 17 123/79 95 03/08/17 17:38 96.6 75 18 123/75 98 03/08/17 16:34 66 18 113/56 95 Room Air 03/08/17 16:33 18 95 Room Air 03/08/17 14:04 17 03/08/17 12:13 97.8 74 20 126/60 97 Room Air I/O 03/08/17 03/08/17 03/08/17 03/09/17 03/09/17 03/09/17 07:00 15:00 23:00 07:00 15:00 23:00 Intake Total 240 ml Balance 240 ml Intake Oral 240 ml # Voids 2 2 # Bowel Movements 0 0 Result Diagram: 03/08/17 1438 03/08/17 1438 Objective Remarks GENERAL: SKIN: Warm and dry. HEAD: Atraumatic. Normocephalic. EYES: Pupils equal and round. No scleral icterus. No injection or drainage. ENT: No nasal bleeding or discharge. Mucous membranes pink and moist. NECK: Trachea midline. No JVD. CARDIOVASCULAR: Regular rate and rhythm. RESPIRATORY: No accessory muscle use. Clear to auscultation. Breath sounds equal bilaterally. GASTROINTESTINAL: Abdomen soft, non-tender, nondistended. Hepatic and splenic margins not palpable. MUSCULOSKELETAL: Extremities without clubbing, cyanosis, or edema. RUE WRAPPED NEUROLOGICAL: Awake and alert. No obvious cranial nerve deficits. Motor grossly within normal limits. Five out of 5 muscle strength in the arms and legs. Normal speech. PSYCHIATRIC: Appropriate mood and affect; insight and judgment normal. Medications and IVs Current Medications Medications (Trade) Dose Ordered Sig/Patrice Route Start Time Stop Time Status Last Admin (Neurontin) 300 mg TID PO 03/08/17 18:00 03/09/17 08:28 (Dilantin) 100 mg BID PO 03/08/17 21:00 03/09/17 08:27 (PHENobarbital) 64.8 mg BID PO 03/08/17 21:00 03/09/17 08:28 (NS Flush) 2 ml UNSCH PRN IV FLUSH 03/08/17 16:00 (NS Flush) 2 ml BID IV FLUSH 03/08/17 21:00 03/09/17 08:28 (Tylenol) 650 mg Q4H PRN PO 03/08/17 16:00 (Zofran Inj) 4 mg Q6H PRN IVP 03/08/17 16:00 (Heparin Inj) 5,000 units Q12H SQ 03/08/17 17:00 (Narcan Inj) 0.4 mg UNSCH PRN IV 03/08/17 16:00 (Shelbie-Colace) 1 tab BID PO 03/08/17 21:00 03/08/17 20:59 (Milk Of Magnesia Liq) 30 ml Q12H PRN PO 03/08/17 16:00 (Senokot) 17.2 mg Q12H PRN PO 03/08/17 16:00 (Dulcolax Supp) 10 mg DAILY PRN RECTAL 03/08/17 16:00 (Lactulose Liq) 30 ml DAILY PRN PO 03/08/17 16:00 ([place] 5-325 Mg) 1 tab Q4H PRN PO 03/08/17 16:00 Acetaminophen/ Hydrocodone Bitart 1 tab 1 tab Q4H PRN PO 03/08/17 16:00 03/09/17 05:56 Lactated Ringer's 1,000 ml @ 30 mls/hr Q24H PRN IV 03/09/17 03:15 03/12/17 03:14 (NS 500 ml Inj) 500 ml @ 30 mls/hr [id number] PRN IV 03/09/17 03:15 03/12/17 03:14 A/P Assessment and Plan Right distal radial fracture - -[place] for pain control -PT -Anticoagulation per orthopedics Seizure disorder: Chronic, stable. Continue home Dilantin and phenobarbital. Neuropathy: Chronic, stable. Continue home gabapentin. PT eval - foot drop. DVT prophylaxis: Heparin Problem List: (1) Cervical radiculopathy Status: Acute (2) Closed fracture of right distal radius Status: Acute Plan: -NWB -NPO -maintain splint -surgery today (3) Neck pain on left side Status: Acute Problem Qualifiers (1) Closed fracture of right distal radius: Qualified Code: S52.571A - Other closed intra-articular fracture of distal end of right radius, initial encounter Roshan Landrum MD March 09, 2017 07:15
[2017-03-09 07:41] VITALS: BP 112/57; PULSE 80; RESP 16; TEMP 97; O2SAT 95
--- NOTE | 2017-03-09 08:22 | EKG ---
Date Performed: 03/08/2017 Time Performed: 16:10:31 PTAGE: 81 years EKG: Sinus rhythm WITH FIRST DEGREE AV BLOCK BORDERLINE LEFT AXIS DEVIATION ABNORMAL ECG PREVIOUS TRACING : 11/19/2016 12.29 No significant change from previous tracing noted. DOCTOR: Danie Mark Interpretating Date/Time 03/09/2017 08:22:05
[2017-03-09] MEDS: PHENYTOIN SODIUM 100 MG CAP PO SCH ×2 (08:27→20:26)
[2017-03-09] MEDS: DOCUSATE SODIUM 50 MG/SENNA 8.6 MG TAB PO SCH ×2 (08:28→20:27)
[2017-03-09] MEDS: SODIUM CHLORIDE 0.9% FLUSH 10 ML FLUSH IV FLUSH SCH ×2 (08:28→20:27)
[2017-03-09] MEDS: PHENobarbital 32.4 MG TAB PO SCH ×2 (08:28→20:26)
[2017-03-09] MEDS: GABAPENTIN 300 MG CAP PO SCH ×3 (08:28→16:37)
[2017-03-09] MEDS ORDERED: GENTAMICIN SULFATE 80 MG/2 ML VIAL ONE (12:13)
[2017-03-09] MEDS ORDERED: VANCOMYCIN HCL 1000 MG VIAL ONE (12:38)
[2017-03-09] MEDS ORDERED: ceFAZolin INJ 1,000 MG VIAL ONE (12:38)
[2017-03-09] MEDS ORDERED: PROPOFOL 200 MG/20 ML AMP IV ONE (13:39)
[2017-03-09] MEDS ORDERED: HYDR-3288 PO (13:56)
--- NOTE | 2017-03-09 13:56 | PD.OP ---
cc: Gino Hawthorne MD Operative Report Date of Surgery: March 09, 2017 Preoperative Diagnosis: Displaced right distal radius fracture Postoperative Diagnosis: Procedure: Open reduction internal fixation right wrist Anesthesia: Gen. Surgeon: Gino Hawthorne Photography Professor(s): LYNSEY Ruiz PA-C The surgical procedure was assisted by my physician senior court office assistant. My P.A. presence was necessary throughout this case for the manipulation and positioning of the surgical extremity. My P.A. was assisting me throughout the duration of this procedure. The skill set of a physician senior court office assistant was medically necessary to complete this procedure. During the surgical case the echo technologist was working at the back table and the physician senior court office assistant was directly assisting me. Operation and Findings: Patient was seen and evaluated preoperatively and found to have a displaced right distal radius fracture. Informed consent was obtained after detailed discussion of risk and benefits including bleeding, infection, injury to arteries, nerves, and blood vessels, weakness and numbness of hand, and tendon rupture. Informed consent was obtained. Patient received IV antibiotics prior to incision. Timeout procedure was performed. Operative extremity was prepped with alcohol followed by Hibiclens and draped usual sterile fashion. A standard volar approach to the distal radius was utilized. A 3 inch incision was made over the FCR tendon. Tendon sheath was opened. Pronator quadratus was elevated up. The fracture site was now visualized. The fracture did have intra-articular extension. Traction was applied. The articular surface was reduced. Fracture fragments were manipulated to achieve excellent reduction. K wires were used to hold provisional fixation. Fluoroscopy confirmed appropriate alignment of fracture. A ITS distal radius plate was selected. Plate was provisionally fixed to bone with K wires. 2.7 cortical screws were used to compress plate to bone. Fluoroscopy confirmed appropriate alignment of fracture with well-placed hardware. Multiple 2.4 locking screws were now placed distally. Screws were predrilled and measured for appropriate length. 2 additional screws were placed into the shaft. K wires were removed. Final fluoroscopy revealed excellent of fracture with well-placed hardware. The wound was thoroughly irrigated with sterile saline. Subcutaneous tissue was closed with 3-0 Vicryl and skin was closed with 3-0 nylon. Sterile dressings were applied with Xeroform, 4 x 4, soft roll, and a well padded volar splint. Patient was awakened and transferred to recovery room in stable condition Gino Hawthorne MD March 09, 2017 13:56
[2017-03-09] MEDS ORDERED: MORPHINE SULFATE 4 MG/ML INJ IV PUSH PRN (14:00)
[2017-03-09] MEDS ORDERED: DO NOT ADM ANY ANTICOAGULANT DRUGS PRN (14:14)
[2017-03-09] MEDS ORDERED: *morphine SULFATE 8 MG/ML PERIprocedure ONLY ONE ×2 (14:27→14:48)
--- NOTE | 2017-03-09 15:07 | RADRPT ---
EXAM DATE/TIME: 03/09/2017 13:42 [facility] COMPARISON: WRIST RIGHT LIMITED(AP & LAT), March 08, 2017, 14:35. INDICATIONS : ORIF right wrist. MEDICAL HISTORY : None. SURGICAL HISTORY : None. ENCOUNTER: Subsequent ACUITY: 2 days PAIN SCORE: Non-responsive. LOCATION: Right distal radius. FINDINGS: Status post internal fixation for fractures of the distal radius. There is good position and alignmen t of the fracture fragments. Hardware is grossly intact. There is good alignment at the radiocarpal j oint. CONCLUSION: Good position and alignment on this postoperative study. Jose Marie MD on March 09, 2017 at 15:05 Board Certified Radiologist. This report was verified electronically.
[2017-03-09 16:00] VITALS: BP 121/57; PULSE 80; RESP 19; TEMP 97.2; O2SAT 96
--- NOTE | 2017-03-09 17:06 | MB ---
cc: JASON SARKAR DATE OF CONSULTATION 03/09/2017 REASON FOR CONSULTATION Right distal radius fracture. CONSULTING PHYSICIAN Dr. Landrum. HISTORY OF THE PRESENT ILLNESS Ms. Reeves is an 81-year female who had a fall. She was at home. She has a history of foot drop. She tripped and fell. She landed on her right wrist. She had immediate pain and deformity. She presented to the emergency room where x-rays were taken. X-rays revealed a displaced right distal radius fracture. She underwent attempted closed reduction. The fracture is relatively unstable and did not improve in alignment. The patient is currently awake and alert in the orthopedic floor. Her only complaint is her right wrist. She denies any dizziness, syncope or loss of consciousness. PAST MEDICAL HISTORY Illnesses, 1. Seizure disorder. 2. History of deep venous thrombosis. 3. Bilateral foot drop. PAST SURGICAL HISTORY 1. Cholecystectomy. 2. Left wrist open reduction, internal fixation. ALLERGIES NO KNOWN DRUG ALLERGIES. MEDICATIONS 1. Gabapentin. 2. Dilantin. 3. Phenobarbital. FAMILY HISTORY Positive for diabetes in her father. SOCIAL HISTORY The patient denies alcohol, tobacco or drug use. She lives at home with her . REVIEW OF SYSTEMS The patient denies headache, visual changes, neck pain, chest pain, shortness of breath, abdominal pain, nausea, vomiting, recent weight loss or numbness or tingling of the extremities. She complains of right wrist pain. Pain is worse with movement. She has bilateral ankle weakness secondary to neuropathy and foot drop. PHYSICAL EXAMINATION GENERAL: The patient is a well-developed, well-nourished 81-year-old female in no acute distress. She is awake and alert. She is alert and oriented times three. VITAL SIGNS: Temperature 97.0, pulse 80, respirations 16, blood pressure 112/57, O2 sat 95% room air. HEAD: The patient is normocephalic. Pupils are equal. NECK: Soft, nontender. Trachea is midline. ABDOMEN: Soft, nontender, nondistended. EXTREMITIES: Examination of right arm reveals no pain with shoulder, elbow motion. She has pain with any wrist motion. Skin is intact. Serious deformity is present. She has mild swelling present. She has intact sensation in all fingers. She has good cap in all refill fingers. Examination of left arm reveals no pain with shoulder, elbow or wrist motion. She has intact sensation in all fingers. She has good cap refill in all fingers. Skin is intact. Examination of bilateral lower extremities reveals no significant pain with hip, knee or ankle motion. She has bilateral foot drop. Dorsalis pedis pulses are palpable. IMAGING X-rays of right wrist were reviewed. X-rays reveal a displaced and angulated right distal radius fracture. IMPRESSION Displaced right distal radius fracture. PLAN Treatment options were discussed with the patient. At this point I have discussed surgical open reduction internal fixation of fracture versus closed treatment with a cast. At this point fracture has significant displacement and angulation. She may likely develop weakness and poor function of her right arm. She is right arm dominant. She would like to have surgery to help stabilize the wrist in appropriate alignment. The risks of surgery including bleeding, infection, injury to arteries, nerves and blood vessels, nonunion, malunion, painful hardware, tendon rupture as well as medical complications including blood clot, stroke, heart attack and were discussed. All questions were answered. I will plan on surgery today. A mid-level provider in my office (nurse practitioner or physician ophthalmic surgical assistant) may see this patient on follow-up visits and continue to implement the objectives of this plan including: Starting or adjusting medications, injections , cast application, orthotics, brace application, physical therapy, radiological studies (including x-ray, MRI, CT, ultrasound, bone scan), vascular studies, neurologic studies, specialist consultation, and proceeding with surgical management, as appropriate. MD BROOKS Rivera/CAMILLE /2:01 PM /4:54 PM DANII
[2017-03-09 20:00] VITALS: BP 129/66; PULSE 80; RESP 22; TEMP 98.4; O2SAT 97
[2017-03-10] VITALS: BP 114/65; PULSE 82; RESP 20; TEMP 99.1; O2SAT 94
[2017-03-10] MEDS: ACETAMINOPHEN/HYDROcodone 325 MG/7.5 MG TAB PO PRN ×5 (00:16→17:31)
[2017-03-10 04:00] VITALS: BP 118/86; PULSE 84; RESP 20; TEMP 97.6; O2SAT 94
[2017-03-10] MEDS: HEPARIN SODIUM - SQ 10,000 UNITS/ML VIAL SQ SCH ×2 (04:24→17:00)
--- NOTE | 2017-03-10 06:46 | PD.ORT.PN ---
Subjective Subjective Remarks Pain control with no new complaints Objective Vitals Vital Signs Date Time Temp Pulse Resp B/P Pulse Ox O2 Delivery O2 Flow Rate FiO2 03/10/17 05:21 18 03/10/17 00:00 99.1 82 20 114/65 94 03/09/17 23:05 Room Air 03/09/17 20:00 98.4 80 22 129/66 97 03/09/17 18:14 21 03/09/17 16:00 97.2 80 19 121/57 96 03/09/17 15:00 74 12 126/59 94 Nasal Cannula 2 03/09/17 14:45 75 24 125/59 93 Nasal Cannula 2 03/09/17 14:30 77 12 120/59 94 Nasal Cannula 2 03/09/17 14:15 97.8 74 20 122/63 98 Nasal Cannula 2 03/09/17 07:41 97.0 80 16 112/57 95 03/09/17 06:58 18 I/O 03/09/17 03/09/17 03/09/17 03/10/17 03/10/17 03/10/17 07:00 15:00 23:00 07:00 15:00 23:00 Intake Total 500 ml 780 ml Output Total 50 ml Balance 450 ml 780 ml Intake Oral 0 ml 780 ml Other 500 ml Output Estimated Blood Loss 50 ml # Voids 2 4 1 # Bowel Movements 0 0 0 Result Diagram: 03/08/17 1438 03/08/17 1438 Imaging Last 24 hours Impressions Chest X-Ray 03/08/17 1521 Signed Impressions: Service Date/Time: Wednesday, March 08, 2017 15:42 - CONCLUSION: 1. Minimal streakiness within the left lung base consistent with atelectasis and/or mild infiltrates. Clinical correlation is recommended. 2. Degenerative changes involving the thoracic spine. Austin Mueller MD Wrist X-Ray 03/08/17 1420 Signed Impressions: Service Date/Time: Wednesday, March 08, 2017 14:35 - CONCLUSION: There is persistent dorsal angulation of the distal radial fracture fragment following closed reduction and casting. No significant change in degree of angulation is appreciated. Balbir Dooley MD Objective Remarks Right upper extremity: Splint intact. Distally intact sensation with good capillary refills. Full extension and flexion of fingers Assessment & Plan Assessment and Plan 1) Right distal Radius Fx POD 1 ORIF Nonweightbearing right upper extremity Maintain splint Discharge to home if deemed safe Follow-up with Dr. Hawthorne or PA in 2 weeks Harish Quinn Jr. March 10, 2017 06:46
[2017-03-10 08:00] VITALS: BP 98/71; PULSE 100; RESP 18; TEMP 98.7; O2SAT 94
--- NOTE | 2017-03-10 08:29 | HHI.DCPOC ---
Discharge Care Plan Diagnosis: (1) Cervical radiculopathy (2) Closed fracture of right distal radius (3) Neck pain on left side Goals to Promote Your Health * To prevent worsening of your condition and complications * To maintain your health at the optimal level Directions to Meet Your Goals Take your medications as prescribed Follow your dietary instruction Follow activity as directed Keep your appointments as scheduled Take your immunizations and boosters as scheduled If your symptoms worsen call your PCP, if no PCP go to Urgent Care Center or Emergency Room Smoking is Dangerous to Your Health. Avoid second hand smoke Call the 24-hour hour crisis hotline for domestic abuse at Roshan Landrum MD March 10, 2017 08:29
--- NOTE | 2017-03-10 08:30 | HHI.FF ---
Face to Face Verification Diagnosis: (1) Cervical radiculopathy (2) Closed fracture of right distal radius (3) Neck pain on left side Physical Therapy Order: Evaluate and Treat, Improve ambulation, Strength and gait training Occupational Therapy Order: Evaluate and Treat, Improve ADL, Gross motor coordination, Fine motor coordination Home Health Aide Order: To Assist In: Bathing and personal care, project administrative assistant and meal prep Glassine Machine Tender Order: To Evaluate: Living conditions/environment, Support services Order: To Provide: Long range planning, Community services I have seen patient Alana Reeves on 03/10/17. My clinical findings support the need for the requested home health care services because: Ltd mobility - disease progression Deconditioned w/ increased weakness Med compliance is questionable Limited ability to care for self Need for psychosocial assistance Impaired cognition/judgement High risk of falls I certify that my clinical findings support that this patient is homebound because: Post-op weakness Impaired cognitive ability/safety Unsteady gait/balance Unsafe to leave home unassisted Need for psychosocial assistance Unable to use public transportation Roshan Landrum MD March 10, 2017 08:30
--- NOTE | 2017-03-10 08:35 | HHI.DS ---
Discharge Summary Admission Date March 08, 2017 at 15:49 Discharge Date: March 10, 2017 Admitting Diagnosis Right Distal Radial Fracture (1) Cervical radiculopathy (2) Closed fracture of right distal radius Diagnosis: Principal (3) Neck pain on left side CBC/BMP: 03/08/17 1438 03/08/17 1438 Significant Findings Laboratory Tests Test 03/08/17 14:38 Eosinophils (%) (Auto) 4.2 % (0.0-4.0) Activated Partial 21.0 SEC Thromboplast Time (24.3-30.1) Estimat Glomerular Filtration 75 ML/MIN (>89) Rate Albumin 3.2 GM/DL (3.4-5.0) Imaging Last 72 hours Impressions Wrist X-Ray 03/09/17 0000 Signed Impressions: Service Date/Time: Thursday, March 09, 2017 13:42 - CONCLUSION: Good position and alignment on this postoperative study. Jose Marie MD Chest X-Ray 03/08/17 1521 Signed Impressions: Service Date/Time: Wednesday, March 08, 2017 15:42 - CONCLUSION: 1. Minimal streakiness within the left lung base consistent with atelectasis and/or mild infiltrates. Clinical correlation is recommended. 2. Degenerative changes involving the thoracic spine. Austin Mueller MD Wrist X-Ray 03/08/17 1420 Signed Impressions: Service Date/Time: Wednesday, March 08, 2017 14:35 - CONCLUSION: There is persistent dorsal angulation of the distal radial fracture fragment following closed reduction and casting. No significant change in degree of angulation is appreciated. Balbir Dooley MD Wrist X-Ray 03/08/17 0000 Signed Impressions: Service Date/Time: Wednesday, March 08, 2017 12:50 - CONCLUSION: There is a transverse fracture of the distal radial metaphysis with dorsal angulation of the distal fragment. Balbir Dooley MD PE at Discharge GENERAL: SKIN: Warm and dry. HEAD: Atraumatic. Normocephalic. EYES: Pupils equal and round. No scleral icterus. No injection or drainage. ENT: No nasal bleeding or discharge. Mucous membranes pink and moist. NECK: Trachea midline. No JVD. CARDIOVASCULAR: Regular rate and rhythm. RESPIRATORY: No accessory muscle use. Clear to auscultation. Breath sounds equal bilaterally. GASTROINTESTINAL: Abdomen soft, non-tender, nondistended. Hepatic and splenic margins not palpable. MUSCULOSKELETAL: Extremities without clubbing, cyanosis, or edema. No obvious deformities. NEUROLOGICAL: Awake and alert. No obvious cranial nerve deficits. Motor grossly within normal limits. Five out of 5 muscle strength in the arms and legs. Normal speech. PSYCHIATRIC: Appropriate mood and affect; insight and judgment normal. Hospital Course 81 y CF. ADMIT WITH RADIAL FX. S/P WRIST REPAIR. UP AND WALKING NOW. REQUESTS TO GO HOME AND NOT SNF. I SUGGEST SNF YET STILL DECLINES SHE HAS AT HOME AND IS WALKING HERE. Discharge Disposition: Disch w/ Home Health Serv Discharge Instructions DIET: Follow Instructions for: As Tolerated, No Restrictions Activities you can perform: See Additionl Instruction Follow up Referrals: Orthopedics - 2 Weeks @ [facility] with Gino Russo MD New Medications: Hydrocodone-Acetaminophen ([place]) 7.5-325 mg Tab 1 TAB PO Q4H PRN PAIN #50 Ref 0 TAB Continued Medications: Gabapentin (Gabapentin) 100 Mg Cap 300 MG PO TID #90 Ref 0 CAP Phenobarbital (Phenobarbital) 15 Mg Tab 64.8 MG PO BID Control Seizures #60 Ref 0 TAB Phenytoin Extended (Dilantin) 30 Mg Cap 100 MG PO BID Control Seizures #90 Ref 0 CAP Roshan Landrum MD March 10, 2017 08:35
[2017-03-10] MEDS: SODIUM CHLORIDE 0.9% FLUSH 10 ML FLUSH IV FLUSH SCH (09:00)
[2017-03-10] MEDS: DOCUSATE SODIUM 50 MG/SENNA 8.6 MG TAB PO SCH (09:00)
[2017-03-10] MEDS: GABAPENTIN 300 MG CAP PO SCH ×3 (09:22→17:31)
[2017-03-10] MEDS: PHENYTOIN SODIUM 100 MG CAP PO SCH (09:22)
[2017-03-10] MEDS: PHENobarbital 32.4 MG TAB PO SCH (09:22)
[2017-03-10 12:00] VITALS: BP 97/50; PULSE 87; RESP 18; TEMP 98.3; O2SAT 94
[2017-03-10 16:00] VITALS: BP 103/53; PULSE 87; RESP 18; TEMP 99; O2SAT 94
== END 2017-03-10 18:12 | disposition home health service (06) ==
LOC: NEPC 12:10 → NEDA 15:49 → N06B 17:34 → N06A 03-09 20:25 → N06B 03-09 20:25
PROVIDERS: ADMIT Family Medicine; ATTEND Family Medicine
DX: S52.571A Other intraarticular fracture of lower end of right radius, initial encounter for closed fracture (principal); G62.9 Polyneuropathy, unspecified; G40.909 Epilepsy, unspecified, not intractable, without status epilepticus; M54.12 Radiculopathy, cervical region; Z86.718 Personal history of other venous thrombosis and embolism; Z87.891 Personal history of nicotine dependence; W01.0XXA Fall on same level from slipping, tripping and stumbling without subsequent striking against object, initial encounter; Y93.89 Activity, other specified
CPT/HCPCS: 25605; 25608; 71010; 73100; 73110; 76000; 80053; 85025; 85610; 85730; 93005; 97163; 97166; 99285; C1713; G0378; G8987; G8988; J0690; J1580; J1644; J2270; J3010; J3370

== ENCOUNTER 2017-10-27 09:25 | Emergency (ER) | payer MEDICARE, BC ==
[~2017-10-27] VITALS: Ht 165.1 cm; Wt 80.0 kg
[~2017-10-27 09:25] MED LIST changes: +GABA100C4 PO; -GABA300C5 PO; +HYDR-3288 PO
[2017-10-27 09:27] VITALS: BP 129/65; PULSE 106; RESP 14; TEMP 97.9; O2SAT 95
[2017-10-27] MEDS ORDERED: PERC10TA27 PO (09:47)
[2017-10-27] MEDS ORDERED: ASPI-146 PO (09:47)
--- NOTE | 2017-10-27 10:05 | PD ---
HPI Chief Complaint: Fall Time Seen by Provider: 09:44 Travel History International Travel<30 days: No Contact w/Intl Traveler<30days: No Traveled to known affect area: No History of Present Illness HPI 82-year-old female presents to the emergency department with complaint of a fractured right foot or ankle. She had a fall 2 days ago injuring her right foot and ankle. History of bilateral foot drop. Says she tripped over her own foot. Denies syncope, hitting her head, loss of consciousness. Denies neck pain or back pain. Has been ambulatory on the affected extremity since the fall. Was seen by her primary care provider, Dr. Landrum, yesterday and was sent for x-ray at [place] and was called today and told to come to the ER for splinting. History of peripheral neuropathy. Denies change in paresthesias. Denies loss of sensation to the affected extremity. Denies fever, vomiting. Denies chest pain, shortness breath, abdominal pain, vomiting. Takes aspirin, otherwise denies anticoagulant therapy. Has prescribed oxycodone and has been taking that for pain management. Pain is mild at this time. Aggravated with ambulation and palpation. Better at rest. Allergies as listed on the chart. Dr. Landrum his primary care provider. History of seizures. Has no medical complaints. No other modifying factors or associated signs and symptoms. PFSH Past Medical History Arthritis: Yes Cancer: No Cardiovascular Problems: Yes (RLE DVT) Diabetes: No Deep Vein Thrombosis: Yes Endocrine: No GERD: Yes Genitourinary: No Immune Disorder: No Medical other: Yes (hx of drop foot) Musculoskeletal: Yes (bilat foot drop) Neurologic: Yes (NEUROPATHY BLE) Reproductive: No Respiratory: No Seizures: Yes (epilepsy but controlled, 50 years since seizure) Past Surgical History Cholecystectomy: Yes Other Surgery: Yes (cyst removed from back of knee) Social History Alcohol Use: No Tobacco Use: No Substance Use: No Allergies-Medications (Allergen,Severity, Reaction): Coded Allergies: bacitracin (Verified Allergy, Severe, rash, 10/27/17) neomycin (Verified Allergy, Severe, rash, 10/27/17) polymyxin B (Verified Allergy, Severe, rash, 10/27/17) shellfish derived (Verified Allergy, Severe, rash, 10/27/17) No Known Allergies (Unverified Allergy, Unknown, 10/27/17) Uncoded Allergies: band aides (Adverse Reaction, Severe, rash, 10/27/17) Reported Meds & Prescriptions Reported Meds & Active Scripts Active Reported Percocet (Oxycodone-Acetaminophen) 10-325 mg Tab 1 Tab PO Q6H PRN Ecotrin Regular Strength (Aspirin) 325 Mg Tabdr 325 Mg PO DAILY Gabapentin 100 Mg Cap 300 Mg PO TID Dilantin (Phenytoin Extended) 30 Mg Cap 100 Mg PO BID Phenobarbital 15 Mg Tab 64.8 Mg PO BID Review of Systems Except as stated in HPI: all other systems reviewed are Neg Physical Exam Narrative GENERAL: Well-nourished, well-developed elderly, female patient, in no acute distress SKIN: Warm and dry. HEAD: Atraumatic. Normocephalic. EYES: Pupils equal and round. No scleral icterus. No injection or drainage. ENT: Mucosa pink and moist. Airway patent. NECK: Trachea midline. CARDIOVASCULAR: Regular rate. RESPIRATORY: No accessory muscle use. GASTROINTESTINAL: Obese. MUSCULOSKELETAL: Right ankle with point tenderness to the lateral and medial malleolar zone; with edema; without erythema, ecchymosis; no obvious deformity. Right foot is edematous and with tenderness on palpation to the mid foot zone ; no obvious deformity; sensory intact. Right lower extremity supple and non- tense with 2+ pedal pulse and sensory intact without erythema, ecchymosis. No obvious deformities. No clubbing. No cyanosis. No edema. NEUROLOGICAL: Awake and alert. Oriented 3. No obvious cranial nerve deficits. Motor grossly within normal limits. Normal speech. PSYCHIATRIC: Appropriate mood and affect; insight and judgment normal. Data Data Last Documented VS Vital Signs Date Time Temp Pulse Resp B/P (MAP) Pulse Ox O2 Delivery O2 Flow Rate FiO2 10/27/17 12:04 10/27/17 09:27 97.9 106 14 95 Orders Orders Ankle, Complete ([id number]) (10/27/17 09:58) Foot, Complete ([id number]) (10/27/17 09:58) Splint Or Brace Apply/Monitor (10/27/17 10:51) Fiberglass Short Leg Splint Ad (10/27/17 ) Fiberglass Sugartong Sp Ad Sl (10/27/17 ) Ed Discharge Order (10/27/17 12:03) MDM Medical Decision Making Medical Screen Exam Complete: Yes Emergency Medical Condition: Yes Medical Record Reviewed: Yes Differential Diagnosis Ankle fracture, foot fracture, sprain, fall Narrative Course 82-year-old female presents with complaint of either an ankle fracture or foot fracture after a mechanical fall 2 days ago. She denies hitting her head or loss of consciousness. Denies neck pain or back pain. Has been ambulatory on the affected extremity since the fall. Saw her primary care provider, Dr. Landrum , yesterday and was sent to [place] [facility] and was called today telling her to come to the emergency Department for splinting secondary to fracture. I am unable to access imaging at this time secondary to the system being down. I will re-x-rayed the foot and ankle to verify fracture. Right foot and ankle x- ray ordered. Patient took oxycodone prior to arrival for pain. 1046: Right foot and ankle x-ray concludes: Foot X-Ray 10/27/17957 Signed Impressions: Service Date/Time: Friday, October 27, 2017 10:17 - CONCLUSION: Unremarkable examination of the right foot. Old healed fracture of the fifth metatarsal shaft. Claudy Mccarty MD Ankle X-Ray 10/27/1758 Signed Impressions: Service Date/Time: Friday, October 27, 2017 10:20 - CONCLUSION: Spiral nondisplaced fracture of the fibular shaft with significant adjacent soft tissue swelling. The beginning of the fracture laterally is a 6.4 cm above the tip of the lateral malleolus. Claudy Mccarty MD A copy of the x-ray report provided of the ankle x-ray and discussed findings of the foot x-ray. [place] splint ordered. 1052: Call placed to orthopedic surgeon. 1142: I spoke with Dr. Aly and he recommended splint and outpatient follow- up. Patient has walker and wheelchair at home for support. Instructed patient to follow up with orthopedics. Patient has prescription for oxycodone for pain at home. Instructed patient to follow up with primary care provider. Patient verbalizes understanding and agreement with treatment plan. Patient is medically cleared and stable for discharge. Discussed reasons to return to the emergency department. Patient agrees with treatment plan. The patients vital signs are stable and the patient is stable for outpatient follow-up and treatment. Patient discharged home, stable and in no acute distress. Diagnosis Primary Impression: Closed fracture shaft of fibula Qualified Codes: S82.444A - Nondisplaced spiral fracture of shaft of right fibula, initial encounter for closed fracture Referrals: Bradley Carson MD Orthopaedic Surgeon Primary Care Physician Patient Instructions: General Instructions Additional Instructions: Tylenol or ibuprofen as directed and as needed for pain and inflammation Rest, ice, compress, and elevate extremity to decrease pain and inflammation Splint for support; do not remove splint until cleared by ortho Walker, wheelchair for support Avoid aggravating activity; increase activity as tolerated Follow-up with primary care provider Follow-up with orthopedics Return to the emergency department immediately with worsening of symptoms Med/Other Pt SpecificInfo: No Change to Meds, No Meds Exist/No RX given Disposition: 01 DISCHARGE HOME Condition: Stable Maricel Ayon Oct 27, 2017 10:05
--- NOTE | 2017-10-27 10:36 | RADRPT ---
EXAM DATE/TIME: 10/27/2017 10:20 [facility] COMPARISON: No previous studies available for comparison. INDICATIONS : Fell 2 days ago. MEDICAL HISTORY : None. SURGICAL HISTORY : None. ENCOUNTER: Initial ACUITY: 2 days PAIN SCORE: 8/10 LOCATION: Right ankle FINDINGS: Three view exam was performed of the right ankle. There is a spiral nondisplaced fracture of the dist al fibular shaft with significant adjacent soft tissue swelling The ankle mortise is intact. No radi opaque foreign bodies are seen. Bony mineralization is normal. CONCLUSION: Spiral nondisplaced fracture of the fibular shaft with significant adjacent soft tissue swelling. The beginning of the fracture laterally is a 6.4 cm above the tip of the lateral malleolus. Claudy Mccarty MD on October 27, 2017 at 10:32 Board Certified Radiologist. This report was verified electronically.
--- NOTE | 2017-10-27 10:39 | RADRPT ---
EXAM DATE/TIME: 10/27/2017 10:17 [facility] COMPARISON: ANKLE RIGHT COMPLETE ([id number]), October 27, 2017, 10:20. INDICATIONS : Fell 2 days ago. MEDICAL HISTORY : hx of right 5th metatarsal fracture SURGICAL HISTORY : None. ENCOUNTER: Initial ACUITY: 2 days PAIN SCORE: 8/10 LOCATION: Right foot FINDINGS: Three view examination of the right foot demonstrates no soft tissue swelling, dislocation, or fractu re. The tarsal bones appear intact. The interphalangeal and metatarsophalangeal joints are intact. The calcaneus is intact. Bony mineralization is normal. CONCLUSION: Unremarkable examination of the right foot. Old healed fracture of the fifth metatarsal shaft. Claudy Mccarty MD on October 27, 2017 at 10:34 Board Certified Radiologist. This report was verified electronically.
== END 2017-10-27 12:04 | disposition home or self-care (01) ==
LOC: NEPK 09:25
DX: S82.491A Other fracture of shaft of right fibula, initial encounter for closed fracture (principal); S82.61XA Displaced fracture of lateral malleolus of right fibula, initial encounter for closed fracture; G62.9 Polyneuropathy, unspecified; M19.90 Unspecified osteoarthritis, unspecified site; K21.9 Gastro-esophageal reflux disease without esophagitis; G40.909 Epilepsy, unspecified, not intractable, without status epilepticus; W01.0XXA Fall on same level from slipping, tripping and stumbling without subsequent striking against object, initial encounter; Z86.718 Personal history of other venous thrombosis and embolism; Z79.899 Other long term (current) drug therapy
CPT/HCPCS: 29515; 73610; 73630

== ENCOUNTER 2018-11-24 13:40 | Inpatient (IN) ==
--- NOTE | 2018-11-24 14:50 | ED ---
HPI General Chief Complaint: Chest Pain Stated Complaint: Chest Complaint/Dr Sent Time Seen by Provider: 11/24/18 14:31 History of Present Illness HPI narrative: 83 year old female with a past medical history of a-fib, epilepsy and DVT who presents to the ED today for evaluation of chest and back pain. She states that the pain started yesterday morning and got progressively worse throughout the evening. She states at its worst it is a 7/10 sharp pain but it comes and goes. She says the pain starts underneath her right shoulder blade and radiates to the center of her chest. She reports an episode of SOB last evening while getting ready for bed. She also says it feels like she can't use her right arm very well either. She denies abdominal pain, nausea, vomiting , numbness/tingling in extremities, headaches, coughing or hoarseness. She denies any history of liver or kidney problems as well as denying a history of aneurysms. Patient denies any other symptoms. She states that she was seen by Dr. Landrum and sent here for this. She comes here with paperwork from Dr. Landrum office stating that they wanted a CT. Related Data Home Medications Medication Instructions Recorded Confirmed aspirin [Aspir-81] 81 mg PO DAILY 11/24/18 11/24/18 diltiazem HCl 120 mg PO DAILY 11/24/18 11/24/18 gabapentin 800 mg PO BID 11/24/18 11/24/18 oxycodone-acetaminophen [Percocet] 1 tab PO BID PRN 11/24/18 11/24/18 phenobarbital 64.8 mg PO BID 11/24/18 11/24/18 phenytoin sodium extended 100 mg PO BID 11/24/18 11/24/18 [Dilantin Extended] Allergies Allergy/AdvReac Type Severity Reaction Status Date / Time bacitracin AdvReac Itching Verified 11/24/18 14:28 [From Rash Relief Antibacterial] dimethicone AdvReac Itching Verified 11/24/18 14:28 [From Rash Relief Antibacterial] zinc oxide AdvReac Itching Verified 11/24/18 14:28 [From Rash Relief Antibacterial] Review of Systems ROS: all other systems reviewed are negative [facility] Medical History Medical History Afib (Acute) DVT (deep venous thrombosis) (Acute) HTN (hypertension) (Acute) Seizures (Acute) Social History Social History Substance History: No History of Abuse Second Hand Smoke Exposure: No Smoking Status: Former smoker Tobacco Type: Cigarettes How Often Do You Have a Drink Containing Alcohol: Monthly or less Recent Travel in [facility] within the Last 8 Weeks: No Recent Out of Country Travel within the Last 8 Weeks: No Immunization History Tetanus Immunization: <5 Years Exam Narrative Exam Narrative: GENERAL: Well-appearing in no distress. SKIN: Focused skin assessment warm/dry. HEAD: Atraumatic. Normocephalic. EYES: Pupils equal and round. No scleral icterus. No injection or drainage. ENT: No nasal bleeding or discharge. Mucous membranes pink and moist. Tongue is midline. No Uvula deviation. NECK: Trachea midline. No JVD. CARDIOVASCULAR: Regular rate and rhythm. No murmur appreciated. RESPIRATORY: No accessory muscle use. Clear to auscultation. Breath sounds equal bilaterally. GASTROINTESTINAL: Abdomen soft, non-tender, nondistended. Hepatic and splenic margins not palpable. MUSCULOSKELETAL: No obvious deformities. No clubbing. No cyanosis. No edema. Full range of motion of the upper and lower extremities bilaterally. 2+ pulses bilaterally. NEUROLOGICAL: Awake and alert. No obvious cranial nerve deficits. Motor grossly within normal limits. Normal speech. PSYCHIATRIC: Appropriate mood and affect; insight and judgment normal. Course Initial Documented Vital Signs Temperature 97.5 F L 11/24/18 13:41 Pulse Rate 96 H 11/24/18 13:41 Respiratory Rate 16 11/24/18 13:41 Blood Pressure 127/60 11/24/18 13:41 Pulse Oximetry 93 L 11/24/18 13:41 Last Documented Vital Signs Temperature 97.5 F L 11/24/18 13:41 Pulse Rate 82 11/24/18 14:47 Respiratory Rate 16 11/24/18 13:41 Blood Pressure 119/63 11/24/18 14:29 Pulse Oximetry 97 11/24/18 14:47 Medical Decision Making MDM Narrative Medical decision making narrative: 83-year-old female who presents to the ED for evaluation of chest pain. Patient was properly examined and was found to have signs and symptoms of unclear etiology. I was able to discuss the case with Dr. Landrum. Apparently Dr. Landrum wanted a CT without contrast initially because he did not had any recent blood work and wanted to do it outpatient but apparently he changed his mind and told the patient to come to the ED to get evaluated. Per Dr. Landrum patient does not have an allergy to iodine and if his creatinine and we feel comfortable the patient can have a CT with contrast we should do this. This was ordered by me. Labs and imaging ordered. Patient currently no acute distress. She did however was found to be in A. fib and RVR initially but currently she is back to sinus rhythm with ventricular rate in the 80s. She seems like she is going in and out of A. fib. This potentially could be causing the symptoms. Labs and imaging showed what appears to be a possible mass on the left lung. Patient has been going in and out of A. fib and RVR. She starts in the 80s and then goes back to the 150s 120s. She was not given any medications because every time we try to give her medication she goes back to the 80s. At this time recommendation is for admission for further evaluation. This was discussed with Dr. Landrum who is in agreement with this plan. Family and patient agree with this plan. Medical Screen Exam Complete: Yes Emergency Medical Condition: Yes Differential Diagnosis Differential Diagnosis: Chest pain versus atypical chest pain versus PE versus aneurysm Medical Records Medical records reviewed: Yes I reviewed the patient's medical records. Lab Data Lab results reviewed: Yes I reviewed the patient's lab results. Result diagrams: 11/24/18 14:39 11/24/18 14:39 Lab Results 11/24/18 11/24/18 11/24/18 Range/Units 14:39 14:39 14:39 WBC 6.6 (4.0-11.0) th/mm3 RBC 4.33 (4.00-5.30) mil/mm3 Hgb 13.6 (11.6-15.3) gm/dL Hct 39.9 (35.0-46.0) % MCV 92.2 (80.0-100.0) fL MCH 31.5 (27.0-34.0) pg MCHC 34.1 (32.0-36.0) % RDW 14.4 (11.6-17.2) % Plt Count 242 (150-450) th/mm3 MPV 8.2 (7.0-11.0) fL Neut % (Auto) 57.5 (16.0-70.0) % Lymph % (Auto) 30.5 (9.0-44.0) % [place] % (Auto) 8.6 H (0.0-8.0) % Eos % (Auto) 2.4 (0.0-4.0) % Baso % (Auto) 1.0 (0.0-2.0) % Neut # (Auto) 3.8 (1.8-7.7) th/mm3 Lymph # (Auto) 2.0 (1.0-4.8) th/mm3 [place] # (Auto) 0.6 (0.0-0.9) th/mm3 Eos # (Auto) 0.2 (0.0-0.4) th/mm3 Baso # (Auto) 0.1 (0.0-0.2) th/mm3 WBC Differential . Differential Comment Auto diff final PT 10.5 (9.8-11.6) sec INR 1.0 Ratio APTT 24.7 (23.4-31.7) sec Sodium 139 (136-145) meq/L Potassium 4.3 (3.5-5.1) meq/L Chloride 107 (98-107) meq/L Carbon Dioxide 27.6 (21.0-32.0) meq/L Anion Gap 4 L (5-15) meq/L BUN 12 (7-18) mg/dL Creatinine 0.93 (0.50-1.00) mg/dL Estimated GFR 58 L (>89) mL/min Random Glucose 98 (74-106) mg/dL Calcium 8.3 L (8.5-10.1) mg/dL Total Bilirubin 0.3 (0.2-1.0) mg/dL AST 15 (15-37) U/L ALT 18 (10-53) U/L Alkaline Phosphatase 136 H (45-117) U/L Total Creatine Kinase 89 (26-192) U/L Troponin I Less than 0.02 L (0.02-0.05) ng/mL Total Protein 7.7 (6.4-8.2) g/dL Albumin 3.3 L (3.4-5.0) g/dL Lipase 200 (73-393) U/L Imaging Data Attestation: I personally reviewed and interpreted this imaging study as follows : Radiologist's impression: Chest CTA 11/24/18 14:37 CONCLUSION: 1. No CT evidence for pulmonary artery embolism. 2. 2.6 cm lobulated nodule in the superior segment of the left lower lobe highly concerning for primary lung malignancy. 3. Multiple nonspecific sub-5 mm mediastinal and left hilar nodes. 4. Coronary artery calcifications. ECG Data Attestation: I personally reviewed and interpreted this ECG as follows: Interpretation: EKG shows what appears to be atrial fibrillation with RVR and a ventricular rate of [address] elevations. Read by my attending. Discharge Plan Discharge Disposition Patient Disposition: ED Admit(ED Internal Use Only) Discharge Order Discharge Orders: ED Use Only Admit Order (Routine); Ordered 11/24/18 Ordered By: Chadd Barba Discharge Details Diagnosis: Atrial fibrillation with RVR, Lung mass, Chest pain, rule out acute myocardial infarction Physicians Team ED Provider: Bigg Carlos ED Midlevel Provider: Chadd Barba Primary Care Provider: Roshan Landrum Attending Provider: Roshan Landrum Discharge Interventions Interventions: Vital Signs Last Done: 11/24/18 14:29 Status ED Status: Admitted Patient
[2018-11-24 14:57] LABS: Baso # (Auto) 0.1 th/mm3 (0.0-0.2); Eos # (Auto) 0.2 th/mm3 (0.0-0.4); Eos % (Auto) 2.4 % (0.0-4.0); Hematocrit 39.9 % (35.0-46.0); Hemoglobin 13.6 gm/dL (11.6-15.3); Lymph % (Auto) 30.5 % (9.0-44.0); Mean Corpuscular HGB Conc 34.1 % (32.0-36.0); Mean Corpuscular Hemoglobin 31.5 pg (27.0-34.0); Mean Corpuscular Volume 92.2 fL (80.0-100.0); Mean Platelet Volume 8.2 fL (7.0-11.0); Mono # (Auto) 0.6 th/mm3 (0.0-0.9); Mono % (Auto) 8.6 % (0.0-8.0); Neut # (Auto) 3.8 th/mm3 (1.8-7.7); Neut % (Auto) 57.5 % (16.0-70.0); Platelet Count 242 th/mm3 (150-450); Red Blood Count 4.33 mil/mm3 (4.00-5.30); Red Cell Distribution Width 14.4 % (11.6-17.2); White Blood Count 6.6 th/mm3 (4.0-11.0)
[2018-11-24 15:20] LABS: Albumin 3.3 g/dL (3.4-5.0); Anion Gap 4 meq/L (5-15); Aspartate Aminotransferase 15 U/L (15-37); Blood Urea Nitrogen 12 mg/dL (7-18); Calcium 8.3 mg/dL (8.5-10.1); Carbon Dioxide 27.6 meq/L (21.0-32.0); Chloride 107 meq/L (98-107); Glomerular Filtration Rate 58 mL/min (>89); Glucose,Random 98 mg/dL (74-106); Lipase 200 U/L (73-393); Potassium 4.3 meq/L (3.5-5.1); Sodium 139 meq/L (136-145)
[2018-11-24 15:25] LABS: Alanine Aminotransferase 18 U/L (10-53); Alkaline Phosphatase 136 U/L (45-117); Total Protein 7.7 g/dL (6.4-8.2)
[2018-11-24 15:28] LABS: Creatine Kinase 89 U/L (26-192)
[2018-11-24 15:29] LABS: Activated Partial Thrombo Time 24.7 sec (23.4-31.7); Prothrombin Time 10.5 sec (9.8-11.6)
--- NOTE | 2018-11-24 15:55 | CT ---
EXAM DATE: 11/24/2018 3:48 PM EST AGE/SEX: 83 years / Female INDICATIONS: Chest pain and shortness of breath. CLINICAL DATA: This is the patient's initial encounter. Patient reports that signs and symptoms have been present for 2 days and indicates a pain score of 5/10. MEDICAL/SURGICAL HISTORY: Deep venous thrombosis. Hypertension. Seizures. A-fib. None. RADIATION DOSE: 11.07 CTDI (mGy) COMPARISON: [facility] [place], CHEST SINGLE AP, 03/08/2017. . TECHNIQUE: Volumetric scanning was performed using a multi-row detector CT scanner during bolus infu sravanthi of 74 ml Omnipaque 350 (iohexol) nonionic water-soluble contrast as a single exam dose. The diaz a was post processed with a variety of visualization algorithms including full volume maximum intensi ty projection and sliding thin slab reformation. Using automated exposure control and adjustment of the mA and/or kV according to patient size, radiation dose was kept as low as reasonably achievable t o obtain optimal diagnostic quality images. DICOM format image data is available electronically for review and comparison. FINDINGS: Pulmonary Arteries: No filling defects are seen in the pulmonary arteries through the segmental vess els. The main pulmonary artery is normal in diameter. Lung: There is a 2.6 x 2.6 cm somewhat lobulated nodule in the superior segment of the left lower lo be. Underlying mild upper lobe predominant centrilobular emphysema. Minimal atelectasis at the lung b ases. Pleura: No effusion, significant pleural thickening or pneumothorax. Mediastinum: Coronary artery calcifications. Heart is otherwise unremarkable. There are multiple sub -5 mm mediastinal or left hilar lymph nodes. Osseous Structures: Degenerative changes of the thoracic spine without significant focal lytic or callie stic bony lesions. Other: Visulaized upper abdomen is unremarkable. CONCLUSION: 1. No CT evidence for pulmonary artery embolism. 2. 2.6 cm lobulated nodule in the superior segment of the left lower lobe highly concerning for prim ag lung malignancy. 3. Multiple nonspecific sub-5 mm mediastinal and left hilar nodes. 4. Coronary artery calcifications. Electronically signed by: Raheem Hale MD Board Certified Radiologist 11/24/2018 3:53 PM EST
[2018-11-24] MEDS ORDERED: Lidocaine 1%/Epinephrine 1:100,000 Inj 20 ML Vial I-DERMAL ONE (16:16)
--- NOTE | 2018-11-24 18:40 | MB ---
cc: Sam Mcdonald MD DATE: 11/24/2018 REQUESTING PHYSICIAN: Emergency room. REASON FOR CONSULTATION: Evaluation of lung mass. HISTORY OF PRESENT ILLNESS: This is an 83-year-old pleasant lady with a history of atrial fibrillation, epilepsy and DVT, presented to the emergency room with a 2-day history of right-sided chest pain, back pain and right arm pain. She was evaluated by her primary physician, Dr. Landrum and was asked to go to the emergency room for evaluation of the chest symptoms with a CT scan. The patient did not have any other symptoms including hematemesis or shortness of breath. In the ER, she had a CT scan of the chest which showed 2 cm loculated nodule in the superior segment of the left lower lobe, highly concerning for malignancy; hence oncology is consulted. The patient is doing well and wants to go home at this time. PAST MEDICAL HISTORY: AFib, DVT, hypertension and seizures. PAST SURGICAL HISTORY: Laparoscopic cholecystectomy. REVIEW OF SYSTEMS: Denies headaches, motor or sensory symptoms. No neck pain or rigidity. No cough or hemoptysis. She does have shortness of breath on exertion, but not at rest. She states she is quite comfortable at rest and denies having any orthopnea or PND. No abdominal pain, distention, blood in the stool or black stools. No frequency, urgency or hematuria. No fevers or night sweats. She claims to have lost weight by dieting by cutting out bread and high carb foods. SOCIAL HISTORY: She smoked a pack a day for 30 years, but stopped 30 years ago and did not abuse alcohol. 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 FAMILY HISTORY: Noncontributory. MEDICATIONS: She is on baby aspirin. Currently in the hospital she is on: 1. Lovenox. 2. Neurontin. 3. Phenobarbital. 4. Phenytoin. 5. Diltiazem. 6. Oxycodone p.r.n. PHYSICAL EXAMINATION: GENERAL: This is an elderly lady healthy-appearing, very pleasant, in no apparent distress. VITAL SIGNS: Stable. She is afebrile. Pallor present. No icterus. No palpable adenopathy in the neck or axilla, specifically supraclavicular lymph nodes are not palpable. GENERAL: Alert and oriented x4. No spinal tenderness, nonfocal neurologic examination. NECK: No thyromegaly. No JVD. CARDIOVASCULAR: S1, S2, regular rate and rhythm. No murmurs or gallops. LUNGS: Bilaterally clear without crackles or wheeze. ABDOMEN: Soft, nontender without palpable organomegaly. Laparoscopic surgical scars of cholecystectomy noted. No free fluid clinically. EXTREMITIES: No edema or evidence of DVTs. LABORATORY DATA: CBC is normal with white count of 6.6, hemoglobin 13.6, platelets 242. PT/INR is 1, PTT is 24.7. Chemistries normal except alkaline phosphatase of 136 and albumin of 3.3. Troponin I less than 0.[address] of the chest as mentioned above. IMPRESSION: An 83-year-old ex-smoker with a 2.6 cm lobulated left lower lobe nodule suspicious for malignancy, needs tissue diagnosis. The patient is on aspirin. We will stop the same and request radiology for biopsy. If it cannot be done as an inpatient, she may be discharged and followed up as outpatient with a biopsy and a PET/CT scan to determine susceptibility. The patient does not want any aggressive therapy, but upon discussion, she agreed for a tissue diagnosis so that further decisions can be made after that. She is being ruled out for [place] and EKG showed atrial fibrillation with RVR and a ventricular rate of 126 per minute, but by examination showed regular pulses and she is hemodynamically stable. If cleared cardiac kelley, will stop ASA and obtain tissue diagnosis. If she is discharged, she can have biopsy of the left lung nodule as outpatient. Either way we will see her in follow her up. Discussed with patient and has no further questions. Sam Mcdonald MD MVA/ct , 06:07 PM , 06:18 PM DANII
[2018-11-24] MEDS: Gabapentin 400 MG Capsule PO SCH (21:16)
[2018-11-24] MEDS: Phenytoin Sodium 100 MG Capsule PO SCH (21:17)
[2018-11-24] MEDS: oxyCODONE/Acetaminophen 10/325 Tablet PO PRN (21:18)
[2018-11-25] MEDS: oxyCODONE/Acetaminophen 10/325 Tablet PO PRN ×2 (05:13→20:31)
--- NOTE | 2018-11-25 08:22 | P.HPFP ---
History of Present Illness Service: fp Primary Care Physician: Roshan Landrum MD Chief Complaint: cp History of Present Illness: 83 y CF. in my office yesterday for followup, med refills, and that she was having R side CP. Sent pt for CT chest, ended up in the ER. I was thus called for admisson for AFIB rvr, lung mass and variable vitals. PT states she has a lung mass, was told she has a high heart rate and that she is having ongoing back pain and CP. Pt seen with nurse. Seems to be at her baseline. Cardiology report reviewed. Tele reviewed. - Diagnosis (1) Atrial fibrillation with RVR (2) Lung mass (3) Chest pain, rule out acute myocardial infarction Review of Systems negative fourteen point ROS except as in HPI PMFSH - History History Provided By: Patient - Medical History Medical History: Medical History (Last Reviewed 11/24/18 @ 15:01 by MICHAEL Yoder) Afib DVT (deep venous thrombosis) HTN (hypertension) Seizures - Tobacco History Second Hand Smoke Exposure: No Tobacco Use In Past 30 Days: Yes Smoking Status: Former smoker Tobacco Type: Cigarettes - Alcohol History How Often Do You Have a Drink Containing Alcohol: Never - Substance Use History Substance History: No History of Abuse - Travel History Recent Travel in the [place] Within the Last 8 Weeks: No Recent Travel Out of the Country Within the Last 8 Weeks: No - Immunization History Tetanus Immunization: <5 Years Hx Influenza Vaccine This Season: Yes Medications and Allergies Active Medications: Active Medications Aspirin (Ecotrin) 81 mg PO DAILY [facility] Digoxin (Lanoxin) 125 mcg PO ONCE ONE Stop: 11/25/18 08:16 Digoxin (Lanoxin) 125 mcg PO DAILY [facility] Gabapentin (Neurontin) 800 mg PO BID [facility] Last Admin: 11/24/18 21:16 Dose: 800 mg Oxycodone/Acetaminophen (Percocet 10/325 Mg) 1 tab PO Q6H PRN PRN Reason: PAIN 6-10 Last Admin: 11/25/18 05:13 Dose: 1 tab Phenobarbital (Phenobarbital) 60 mg PO BID [facility] Last Admin: 11/24/18 22:08 Dose: 60 mg Phenytoin Sodium (Dilantin) 100 mg PO BID [facility] Last Admin: 11/24/18 21:17 Dose: 100 mg Allergies Allergy/AdvReac Type Severity Reaction Status Date / Time bacitracin AdvReac Itching Verified 11/24/18 14:28 [From Rash Relief Antibacterial] dimethicone AdvReac Itching Verified 11/24/18 14:28 [From Rash Relief Antibacterial] zinc oxide AdvReac Itching Verified 11/24/18 14:28 [From Rash Relief Antibacterial] Home Medications Medication Instructions Recorded Confirmed Type RX: diltiazem HCl 120 mg PO DAILY 11/24/18 11/24/18 History RX: gabapentin 800 mg PO BID 11/24/18 11/24/18 History RX: phenobarbital 64.8 mg PO BID 11/24/18 11/24/18 History aspirin [Aspir-81] 81 mg PO DAILY 11/24/18 11/24/18 History oxycodone-acetaminophen [Percocet] 1 tab PO BID PRN 11/24/18 11/24/18 History phenytoin sodium extended 100 mg PO BID 11/24/18 11/24/18 History [Dilantin Extended] Exam Vital signs: Vital Signs 11/24/18 13:41 11/24/18 14:29 11/24/18 14:47 Temperature 97.5 F L Pulse Rate 96 H 80 82 Respiratory Rate 16 Blood Pressure 127/60 119/63 Pulse Oximetry 93 L 97 97 11/24/18 16:30 11/24/18 17:24 11/24/18 20:48 Temperature 97.5 F L Pulse Rate 94 H 90 85 Respiratory Rate 18 18 20 Blood Pressure 103/63 104/52 L 104/52 L Pulse Oximetry 97 11/24/18 21:45 11/25/18 00:00 11/25/18 01:01 Temperature Pulse Rate 81 68 Respiratory Rate Blood Pressure Pulse Oximetry 96 11/25/18 01:27 11/25/18 04:00 11/25/18 05:44 Temperature 97.5 F L 97.5 F L Pulse Rate 72 77 77 Respiratory Rate 20 20 Blood Pressure 92/52 L 103/50 L Pulse Oximetry 94 L 94 L Intake & Output 11/24/18 11/25/18 11/25/18 18:59 06:59 18:59 Weight 71.214 kg 77.4 kg Other: # Voids 1 - Constitutional no acute distress, chronically ill appearing - Routine HEENT Exam Head: Present: normocephalic Eye: Present: EOMI ENT: Present: mucous membranes moist - Routine Neck Exam Present: supple, full ROM - Routine Respiratory Exam Present: CTA bilaterally, distant breath sounds - Routine Cardiovascular Exam Present: RRR, S1, S2 - Routine Abdominal Exam Present: soft, normoactive bowel sounds - Routine Extremities Exam Present: full ROM - Routine Skin Exam Present: intact, warm - Routine Neurological Exam Present: alert, oriented X3, abnormal gait Results - Labs Result diagrams: 11/24/18 14:39 11/24/18 14:39 Abnormal lab results 11/24/18 11/24/18 Range/Units 14:39 14:39 [place] % (Auto) 8.6 H (0.0-8.0) % Anion Gap 4 L (5-15) meq/L Estimated GFR 58 L (>89) mL/min Calcium 8.3 L (8.5-10.1) mg/dL Alkaline Phosphatase 136 H (45-117) U/L Troponin I Less than 0.02 L (0.02-0.05) ng/mL Albumin 3.3 L (3.4-5.0) g/dL Short CBC 11/24/18 Range/Units 14:39 WBC 6.6 (4.0-11.0) th/mm3 Hgb 13.6 (11.6-15.3) gm/dL Hct 39.9 (35.0-46.0) % Plt Count 242 (150-450) th/mm3 BMP 11/24/18 14:39 Sodium 139 Potassium 4.3 Chloride 107 Carbon Dioxide 27.6 BUN 12 Creatinine 0.93 Calcium 8.3 L Cardiac Enzymes 11/24/18 Range/Units 14:39 Total Creatine Kinase 89 (26-192) U/L Troponin I Less than 0.02 L (0.02-0.05) ng/mL Liver Function 11/24/18 Range/Units 14:39 Total Bilirubin 0.3 (0.2-1.0) mg/dL AST 15 (15-37) U/L ALT 18 (10-53) U/L Alkaline Phosphatase 136 H (45-117) U/L Albumin 3.3 L (3.4-5.0) g/dL - Imaging Impressions Chest CTA 11/24/18 14:37 CONCLUSION: 1. No CT evidence for pulmonary artery embolism. 2. 2.6 cm lobulated nodule in the superior segment of the left lower lobe highly concerning for primary lung malignancy. 3. Multiple nonspecific sub-5 mm mediastinal and left hilar nodes. 4. Coronary artery calcifications. Caprini VTE Risk Assessment Caprini VTE Risk Assessment: Moderate/High Risk (score >= 2) VTE Pharmacological Exception Reason: Hemorrhage Caprini Risk Assessment Model: Point Value = 1 Point Value = 2 Point Value = 3 Point Value = 5 Age 41-60 Minor surgery BMI > 25 kg/m2 Swollen legs Varicose veins or History of unexplained or recurrent spontaneous Oral contraceptives or hormone replacement Sepsis (< 1 month) Serious lung disease, including pneumonia (< 1 month) Abnormal pulmonary function Acute myocardial infarction Congestive heart failure (< 1 month) History of inflammatory bowel disease Medical patient at bed rest Age 61-74 Arthroscopic surgery Major open surgery (> 45 min) Laparoscopic surgery (> 45 min) Malignancy Confined to bed (> 72 hours) Immobilizing plaster cast Central venous access Age >= 75 History of VTE Family history of VTE Factor V Leiden Prothrombin [id number] Lupus anticoagulant Anticardiolipin antibodies Elevated serum homocysteine Heparin-induced thrombocytopenia Other congenital or acquired thrombophilia Stroke (< 1 month) Elective arthroplasty Hip, pelvis, or leg fracture Acute spinal cord injury (< 1 month) Prophylaxis Regimen: Total Risk Factor Score Risk Level Prophylaxis Regimen 0-1 Low Early ambulation 2 Moderate Order ONE of the following: *Sequential Compression Device (SCD) *Heparin 5000 units SQ BID 3-4 Higher Order ONE of the following medications: *Heparin 5000 units SQ TID *Enoxaparin/Lovenox 40 mg SQ daily (WT < 150 kg, CrCl > 30 mL/min) *Enoxaparin/Lovenox 30 mg SQ daily (WT < 150 kg, CrCl > 10-29 mL/min) *Enoxaparin/Lovenox 30 mg SQ BID (WT < 150 kg, CrCl > 30 mL/min) AND/OR *Sequential Compression Device (SCD) 5 or more Highest Order ONE of the following medications: *Heparin 5000 units SQ TID (Preferred with Epidurals) *Enoxaparin/Lovenox 40 mg SQ daily (WT < 150 kg, CrCl > 30 mL/min) *Enoxaparin/Lovenox 30 mg SQ daily (WT < 150 kg, CrCl > 10-29 mL/min) *Enoxaparin/Lovenox 30 mg SQ BID (WT < 150 kg, CrCl > 30 mL/min) AND *Sequential Compression Device (SCD) Assessment and Plan - Assessment (1) Atrial fibrillation with RVR Code(s): I48.91 - Unspecified atrial fibrillation Status: Acute (2) Lung mass Code(s): R91.8 - Other nonspecific abnormal finding of lung field Status: Acute (3) Chest pain, rule out acute myocardial infarction Code(s): R07.9 - Chest pain, unspecified Status: Acute - Assessment and Plan A/P- CP- cardiology consult, they signed off, echo ordered, LUNG MASS- oncology consult, bx today pending, AFIB RVR- received digoxin, holding home dose diltiazem CAD SZ- check dilantin and phenobarb levels in am CHRONIC PAIN SYNDROME- continue percocet GIB HX- monitor, holding asa for now DVT HX OBS ADMIT H&P: Quality - VTE Deep Vein Thrombosis/Pulmonary Embolism Present on Admission: No
--- NOTE | 2018-11-25 08:32 | P.CONCA ---
History of Present Illness Primary Care Provider: Roshan Landrum MD History of Present Illness: 83-year-old female with paroxysmal A. fib, prior DVT, GI bleed with anticoagulation/antiplatelet, newly diagnosed lung mass who was sent by PCP for chest pain. The patient states that for the past month she has been having stiffness in her right shoulder blade and arm. She started having pain in her right shoulder blade and arm that radiated to her chest approximately 3 days ago that has been going on constantly since that time. Her PCP sent her to the ED for chest CTA. CTA done and showed left lung mass suspicious for malignancy. Seen by oncology and plan is for biopsy of lung mass today. The patient also has a past medical history of paroxysmal atrial fibrillation for several years. 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 While in the ED she was having paroxysms of A. fib with RVR that was spontaneously convert to NSR prior to medications given. She is on diltiazem for rate control at home. She states that she gets palpitations at night about 4 or 5 times a month, but heart racing has been increasing in the past few days. Patient reports she had prior DVT in her leg. She states she was initially treated with Coumadin, but was taken off of this due to black tarry stools. She states she was then treated with Plavix, but was taken off as well due to black tarry stools. She states that she did have evaluation with GI and endoscopy is done. She states this was several years ago. Review of Systems All other systems reviewed negative except as stated in HPI [facility] - History History Provided By: Patient - Medical History Medical History: Medical History (Last Reviewed 11/24/18 @ 15:01 by MICHAEL Yoder) Afib DVT (deep venous thrombosis) HTN (hypertension) Seizures - Tobacco History Second Hand Smoke Exposure: No Tobacco Use In Past 30 Days: Yes Smoking Status: Former smoker Tobacco Type: Cigarettes - Alcohol History How Often Do You Have a Drink Containing Alcohol: Never - Substance Use History Substance History: No History of Abuse - Travel History Recent Travel in the [place] Within the Last 8 Weeks: No Recent Travel Out of the Country Within the Last 8 Weeks: No - Immunization History Tetanus Immunization: <5 Years Hx Influenza Vaccine This Season: Yes Medications and Allergies Active Medications: Active Medications Aspirin (Ecotrin) 81 mg PO DAILY [facility] Digoxin (Lanoxin) 125 mcg PO ONCE ONE Stop: 11/25/18 08:16 Digoxin (Lanoxin) 125 mcg PO DAILY [facility] Gabapentin (Neurontin) 800 mg PO BID [facility] Last Admin: 11/24/18 21:16 Dose: 800 mg Oxycodone/Acetaminophen (Percocet 10/325 Mg) 1 tab PO Q6H PRN PRN Reason: PAIN 6-10 Last Admin: 11/25/18 05:13 Dose: 1 tab Phenobarbital (Phenobarbital) 60 mg PO BID [facility] Last Admin: 11/24/18 22:08 Dose: 60 mg Phenytoin Sodium (Dilantin) 100 mg PO BID [facility] Last Admin: 11/24/18 21:17 Dose: 100 mg Allergies Allergy/AdvReac Type Severity Reaction Status Date / Time bacitracin AdvReac Itching Verified 11/24/18 14:28 [From Rash Relief Antibacterial] dimethicone AdvReac Itching Verified 11/24/18 14:28 [From Rash Relief Antibacterial] zinc oxide AdvReac Itching Verified 11/24/18 14:28 [From Rash Relief Antibacterial] Home Medications Medication Instructions Recorded Confirmed Type aspirin [Aspir-81] 81 mg PO DAILY 11/24/18 11/24/18 History diltiazem HCl 120 mg PO DAILY 11/24/18 11/24/18 History gabapentin 800 mg PO BID 11/24/18 11/24/18 History oxycodone-acetaminophen [Percocet] 1 tab PO BID PRN 11/24/18 11/24/18 History phenobarbital 64.8 mg PO BID 11/24/18 11/24/18 History phenytoin sodium extended 100 mg PO BID 11/24/18 11/24/18 History [Dilantin Extended] Exam Vital signs: Vital Signs 11/24/18 13:41 11/24/18 14:29 11/24/18 14:47 Temperature 97.5 F L Pulse Rate 96 H 80 82 Respiratory Rate 16 Blood Pressure 127/60 119/63 Pulse Oximetry 93 L 97 97 11/24/18 16:30 11/24/18 17:24 11/24/18 20:48 Temperature 97.5 F L Pulse Rate 94 H 90 85 Respiratory Rate 18 18 20 Blood Pressure 103/63 104/52 L 104/52 L Pulse Oximetry 97 11/24/18 21:45 11/25/18 00:00 11/25/18 01:01 Temperature Pulse Rate 81 68 Respiratory Rate Blood Pressure Pulse Oximetry 96 11/25/18 01:27 11/25/18 04:00 11/25/18 05:44 Temperature 97.5 F L 97.5 F L Pulse Rate 72 77 77 Respiratory Rate 20 20 Blood Pressure 92/52 L 103/50 L Pulse Oximetry 94 L 94 L Intake & Output 11/24/18 11/25/18 11/25/18 18:59 06:59 18:59 Weight 157 lb 170 lb 10.205 oz Other: # Voids 1 Narrative: GENERAL: Well-developed well-nourished. In no acute distress. NECK: No carotid bruits. No JVD. CARDIOVASCULAR: Regular rate and rhythm. No murmur appreciated. RESPIRATORY: No accessory muscle use. Clear to auscultation. Breath sounds equal bilaterally. MUSCULOSKELETAL: No clubbing or cyanosis. No edema. NEUROLOGICAL: Awake and alert. Normal speech. Results 11/24/18 14:39 11/24/18 14:39 Cardiac Enzymes 11/24/18 Range/Units 14:39 AST 15 (15-37) U/L Troponin I Less than 0.02 L (0.02-0.05) ng/mL Coagulation 11/24/18 Range/Units 14:39 PT 10.5 (9.8-11.6) sec APTT 24.7 (23.4-31.7) sec CBC 11/24/18 Range/Units 14:39 WBC 6.6 (4.0-11.0) th/mm3 RBC 4.33 (4.00-5.30) mil/mm3 Hgb 13.6 (11.6-15.3) gm/dL Hct 39.9 (35.0-46.0) % Plt Count 242 (150-450) th/mm3 Neut # (Auto) 3.8 (1.8-7.7) th/mm3 Lymph # (Auto) 2.0 (1.0-4.8) th/mm3 [place] # (Auto) 0.6 (0.0-0.9) th/mm3 Eos # (Auto) 0.2 (0.0-0.4) th/mm3 Baso # (Auto) 0.1 (0.0-0.2) th/mm3 Comprehensive Metabolic Panel 11/24/18 Range/Units 14:39 Sodium 139 (136-145) meq/L Potassium 4.3 (3.5-5.1) meq/L Chloride 107 (98-107) meq/L Carbon Dioxide 27.6 (21.0-32.0) meq/L BUN 12 (7-18) mg/dL Creatinine 0.93 (0.50-1.00) mg/dL Calcium 8.3 L (8.5-10.1) mg/dL AST 15 (15-37) U/L ALT 18 (10-53) U/L Alkaline Phosphatase 136 H (45-117) U/L Total Protein 7.7 (6.4-8.2) g/dL Albumin 3.3 L (3.4-5.0) g/dL Intake and Output 11/24/18 11/25/18 11/25/18 22:59 06:59 14:59 Other: # Voids 1 Weight 170 lb 10.205 oz - Imaging and Cardiology Imaging: Impressions Chest CTA 11/24/18 14:37 CONCLUSION: 1. No CT evidence for pulmonary artery embolism. 2. 2.6 cm lobulated nodule in the superior segment of the left lower lobe highly concerning for primary lung malignancy. 3. Multiple nonspecific sub-5 mm mediastinal and left hilar nodes. 4. Coronary artery calcifications. Assessment and Plan - Plan 83-year-old female with paroxysmal A. fib, prior DVT, GI bleed with anticoagulation/antiplatelet, newly diagnosed lung mass who was sent by PCP for chest pain Paroxysmal atrial fibrillation/flutter with RVR: BP is marginal, will hold diltiazem for now. Start digoxin with loading dose today for rate control. Will consider adding low-dose metoprolol as well for further rate control if needed and BP allows. Chadsvasc at least 2 due to age, discussed at length elevated CVA risk and benefits of anticoagulation therapy. For now unable to start any anticoagulation with lung biopsy today. The patient is apprehensive about going on any anticoagulation with prior GI bleeding. I did suggest that it would be a good idea to follow-up with gastroenterology as outpatient to discuss possibility of going back on anticoagulation. However, patient states that even if GI were to clear her to go on anticoagulation, she acknowledges the stroke risk and would elect to defer anticoagulation anyway. Check echocardiogram. Atypical chest pain: Symptoms are quite atypical for ischemia, possibly musculoskeletal vs due to lung mass. Troponin normal. Would consider outpatient Lexiscan. We will sign off at this time. Please call with questions Discussed Condition With: Patient, Dr. Melgar
[2018-11-25] MEDS: Phenytoin Sodium 100 MG Capsule PO SCH ×2 (08:33→20:31)
[2018-11-25] MEDS: Gabapentin 400 MG Capsule PO SCH ×2 (08:33→20:30)
[2018-11-25] MEDS ORDERED: fentaNYL Citrate Inj 250 MCG/5 ML Ampul ONE (08:39)
[2018-11-25] MEDS ORDERED: oxyCODONE/Acetaminophen 10/325 Tablet PO PRN (08:44)
[2018-11-25] MEDS ORDERED: dilTIAZem CD 120 MG Capsule PO SCH ×2 (09:00)
[2018-11-25] MEDS ORDERED: Enoxaparin Inj 80 MG/0.8 ML Syringe SQ SCH (09:00)
[2018-11-25] MEDS ORDERED: Digoxin 125 MCG Tablet PO SCH (09:00)
[2018-11-25] MEDS ORDERED: Digoxin 125 MCG Tablet PO ONE ×2 (09:00→20:00)
--- NOTE | 2018-11-25 10:33 | P.RAD ---
Post CT Procedure Prog Note - Pre Procedure Diagnosis (1) Lung mass - Post Procedure Diagnosis (1) Lung mass - Procedure Information Procedure Date: 11/25/18 Supervising Radiologist: Dima Moran MD Estimated blood loss (mL): 1 Anesthesia: Local, Analgesia, Conscious Sedation - Plan of Activity Patient to Unit: ROPU Patient condition: Good See PACS Report for procedural detail/treatment. Biopsy CT left Lung Specimen: Core Biopsy (20 gauge. 3-passes), Fine Needle Aspirate (Through carrier needle. Sent for C&S) Findings: Small PTX post procedure
--- NOTE | 2018-11-25 11:03 | XR ---
EXAM DATE: 11/25/2018 10:50 AM EST AGE/SEX: 83 years / Female INDICATIONS: Post CT guided needle biopsy left lung. CLINICAL DATA: This is the patient's subsequent encounter. Patient reports that signs and symptoms h ave been present for 4 - 6 days and indicates a pain score of 5/10. MEDICAL/SURGICAL HISTORY: Hypertension. Seizures. A-fib, DVT Non-responsive. COMPARISON: [facility] – [place], CHEST SINGLE AP, 03/08/2017. . FINDINGS: A single frontal expiratory view of the chest was performed. 3.6 cm left apical pneumothorax post lef t lung biopsy. Some left basilar atelectatic changes. There is some haziness in a nodule adjacent to the descending thoracic aorta which probably represents expected perilesional hemorrhage postbiopsy. Right lung is clear. CONCLUSION: Moderately large left apical pneumothorax measuring 3.6 cm in depth. Electronically signed by: Dima Moran MD Board Certified Radiologist 11/25/2018 11:01 AM EST
[2018-11-25] MEDS ORDERED: fentaNYL Citrate Inj 100 MCG/2 ML Ampul ONE (11:19)
[2018-11-25] MEDS ORDERED: Lidocaine PF 1% Inj 30 ML Vial ONE (11:41)
--- NOTE | 2018-11-25 12:14 | P.RAD ---
Post Procedure Progress Note - Pre Procedure Diagnosis (1) Pneumothorax after biopsy (2) Lung mass - Post Procedure Diagnosis (1) Lung mass (2) Pneumothorax after biopsy - Procedure Information Procedure Date: 11/25/18 Supervising Radiologist: Dima Moran MD Estimated blood loss (mL): 1 Anesthesia: Local, Analgesia, Conscious Sedation - Plan of Activity Patient to Unit: ROPU Patient Condition: Good See PACS Report for procedural detail/treatment. Drainage Procedure Fluoroscopy left Chest Tube Non-Tunneled Placement Urdu Tube Size: 10 (Non-locking) Drainage: Pleurovac (40 cmH2O)
--- NOTE | 2018-11-25 12:21 | CT ---
EXAM DATE: 11/25/2018 10:54 AM EST AGE/SEX: 83 years / Female INDICATIONS: Left lung mass. CLINICAL DATA: This is the patient's initial encounter. Patient reports that signs and symptoms have been present for 1 day and indicates a pain score of 0/10. MEDICAL/SURGICAL HISTORY: Hypertension. Atrial fibrillation. None. COMPARISON: [facility] – [place], CTA PULMONARY W CONTRAST W 3D, 11/24/2018. . SEDATION TIME (min): 40 BIOPSY SITE: Left lung MEDICATION(S): 1.5mg midazolam (Versed) IV 75mcg fentanyl (Sublimaze) IV DEVICE(S): 19 gauge Introducer 20 gauge BARD biopsy needle Aspirate through the 19-gauge carrier needle. Three core specimen(s) sent to the laboratory for pathologic evaluation. . . PROCEDURE: CT guided Left lung biopsy Conscious sedation with continuous EKG and oximetry monitoring. EKG and oximetry remained stable throughout the procedure. Prior to the procedure informed consent was obtained. Any appropriate prior imaging studies were rev iewed. Using automated exposure control and adjustment of the mA and/or kV according to patient size , radiation dose was kept as low as reasonably achievable to obtain optimal diagnostic quality images . DICOM format image data is available electronically for review and comparison. The site was prepped in a sterile fashion. Full sterile technique was used, including cap, mask, willow rile gloves and gown and a large sterile sheet. Hand hygiene and 2% chlorhexidine and/or betadine/al cohol prep was utilized per protocol for cutaneous antisepsis. The skin and subcutaneous tissues wer e infiltrated with local anesthetic solution. With CT guidance the previously identified target was localized. Biopsy was performed using the presc ribed needle as above. Adequate hemostasis was obtained with compression at the puncture site. Follow-up CT scan reveals a small pneumothorax. Conscious sedation was performed with the prescribed dosages and duration as above in the presence of an independent trained radiology nurse to assist in the monitoring of the patient. EKG and oximetry remained stable throughout the procedure. The patient tolerated the procedure well and there were no complications. The patient was sent to Radiology Outpatient Unit in stable condition. FINDINGS: After 20-gauge core biopsy of the lung nodule, the carrier needle was advanced down to the lesion and a small aspirate obtained for culture. CONCLUSION: 1. CT guided biopsy left lung. 2. Aspirate from the carrier needle was placed in a sterile culture tube for Gram stain, culture and sensitivity. 3. Small postprocedural pneumothorax. Electronically signed by: Dima Moran MD Board Certified Radiologist 11/25/2018 12:20 PM EST
--- NOTE | 2018-11-25 12:29 | IR ---
EXAM DATE: 11/25/2018 12:23 PM EST AGE/SEX: 83 years / Female INDICATIONS: Patient presents status post left lung biopsy in need of chest tube placement due to pn eumothorax. CLINICAL DATA: This is the patient's initial encounter. Patient reports that signs and symptoms have been present for 1 day and indicates a pain score of 5/10. MEDICAL/SURGICAL HISTORY: . HTN, A fib, History of epilepsy, History of DVT. None. COMPARISON: [facility] [place] [facility] [place] BI[place]SY LUNG LEFT, 11/25/2018. . FLUORO TIME (min): 1.58 IMAGE SERIES: 1 RADIATION DOSE: 0.26626 mGym2 CAK ACCESS SITE: SEDATION TIME (min): 30 MEDICATION(S): 1 mg midazolam (Versed) IV 50 mcg fentanyl (Sublimaze) IV Vancomycin within 2 hrs of procedure, Ancef (or alternative) within 1 hr of procedure. DEVICE(S): 10 Portuguese non-locking catheter 30 cm [place] . . PROCEDURE: 1. Fluoroscopically guided chest tube placement. 2. Conscious sedation with continuous EKG and oximetry monitoring. The risks, benefits and alternatives to the procedure were explained and verbal and written consent w as obtained. The site was prepped in sterile fashion. Full sterile technique was used, including ca p, mask, sterile gloves and gown and a large sterile sheet. Hand hygiene and 2% chlorhexidine and/or betadine/alcohol prep was utilized per protocol for cutaneous antisepsis. The skin and subcutaneous tissues were infiltrated with local anesthetic solution. Patient underwent left lung biopsy earlier today with a small postprocedural pneumothorax. Chest radiograph shows the pneumothorax to have incre ased slightly in size. Patient is symptomatic with left-sided chest pain and mild shortness of breath . With fluoroscopic guidance the chest was punctured between the first and second interspace and the pr escribed catheter was placed in the lung apex. Wall suction was applied. Post procedure images demon strate satisfactory position of the tube. The catheter was sutured in place and a Percu-Stay was juana lied. Conscious sedation was performed with the prescribed dosages and duration as above in the presence of an independent trained radiology nurse to assist in the monitoring of the patient. EKG and oximetry remained stable throughout the procedure. The patient tolerated the procedure well and there were n o complications. The patient was sent to post anesthesia recovery in stable condition. CONCLUSION: 1. Uncomplicated chest tube placement as above. Electronically signed by: Dima Moran MD Board Certified Radiologist 11/25/2018 12:27 PM EST
--- NOTE | 2018-11-25 12:39 | XR ---
EXAM DATE: 11/25/2018 12:34 PM EST AGE/SEX: 83 years / Female INDICATIONS: Chest tube placement. CLINICAL DATA: This is the patient's subsequent encounter. Patient reports that signs and symptoms h ave been present for 2 days and indicates a pain score of 0/10. MEDICAL/SURGICAL HISTORY: . Hypertension. Seizures. A-fib, DVT None. COMPARISON: [facility] – [place], CHEST EXPIRATION ONLY, 11/25/2018. . FINDINGS: Status post placement of a left-sided chest tube. The pigtail was placed in the left apex. The previo usly noted pneumothorax has completely resolved. There are chronic interstitial changes bilaterally. The heart size is within normal limits. The bony structures are grossly intact. CONCLUSION: 1. Left-sided chest tube in place. 2. Resolution of the previously noted left pneumothorax. Electronically signed by: Jose Marie MD Board Certified Radiologist 11/25/2018 12:38 PM EST
--- NOTE | 2018-11-25 14:50 | ECG ---
Date Performed: 11/24/2018 Time Performed: 14:03:57 PTAGE: 83 years EKG: ATRIAL FIBRILLATION WITH RAPID VENTRICULAR RESPONSE INCOMPLETE RIGHT BUNDLE BRANCH BLOCK AB NORMAL RHYTHM ECG Since the PREVIOUS TRACING , no significant change noted PREVIOUS TRACIN11/24/2018 13.52 DOCTOR: Irma Tafoya Interpretating Date/Time 11/25/2018 14:44:01
--- NOTE | 2018-11-25 15:29 | ECG ---
Date Performed: 11/24/2018 Time Performed: 13:52:50 PTAGE: 83 years EKG: ATRIAL FLUTTER WITH RAPID VENTRICULAR RESPONSE BORDERLINE LEFT AXIS DEVIATION INCOMPLETE RI GHT BUNDLE BRANCH BLOCK ABNORMAL RHYTHM ECG Compared to PREVIOUS TRACING , the atrial flutter is a new finding. The incomplete right bundle branc h block is a new finding. PREVIOUS TRACIN03/08/2017 16.10 DOCTOR: Irma Tafoya Interpretating Date/Time 11/25/2018 15:28:35
[2018-11-25] MEDS ORDERED: Metoprolol Inj 5 MG/5 ML Vial IV.PUSH PRN (20:04)
[2018-11-25] MEDS: Metoprolol Tartrate 25 MG Tablet PO SCH (20:31)
[2018-11-26] MEDS: oxyCODONE/Acetaminophen 10/325 Tablet PO PRN ×3 (05:02→18:27)
[2018-11-26] MEDS: Gabapentin 400 MG Capsule PO SCH ×2 (09:46→20:13)
[2018-11-26] MEDS: Digoxin 250 MCG Tablet PO SCH (09:46)
[2018-11-26] MEDS: Phenytoin Sodium 100 MG Capsule PO SCH ×2 (09:46→18:27)
[2018-11-26 10:41] LABS: Baso # (Auto) 0.1 th/mm3 (0.0-0.2); Baso % (Auto) 1.2 % (0.0-2.0); Eos # (Auto) 0.1 th/mm3 (0.0-0.4); Eos % (Auto) 3.2 % (0.0-4.0); Hematocrit 40.7 % (35.0-46.0); Hemoglobin 13.8 gm/dL (11.6-15.3); Lymph # (Auto) 1.3 th/mm3 (1.0-4.8); Lymph % (Auto) 27.6 % (9.0-44.0); Mean Corpuscular HGB Conc 33.8 % (32.0-36.0); Mean Corpuscular Hemoglobin 31.7 pg (27.0-34.0); Mean Corpuscular Volume 93.9 fL (80.0-100.0); Mono # (Auto) 0.4 th/mm3 (0.0-0.9); Neut # (Auto) 2.8 th/mm3 (1.8-7.7); Platelet Count 227 th/mm3 (150-450); Red Blood Count 4.33 mil/mm3 (4.00-5.30); Red Cell Distribution Width 14.2 % (11.6-17.2); White Blood Count 4.7 th/mm3 (4.0-11.0)
[2018-11-26 11:01] LABS: Calcium 8.3 mg/dL (8.5-10.1); Carbon Dioxide 27.3 meq/L (21.0-32.0); Phenytoin (Dilantin) 1.8 mcg/mL (10.0-20.0); Potassium 3.9 meq/L (3.5-5.1)
[2018-11-26] MEDS: Metoprolol Tartrate 25 MG Tablet PO SCH ×2 (11:08→20:14)
--- NOTE | 2018-11-26 13:29 | XR ---
EXAM DATE: 11/26/2018 1:05 PM EST AGE/SEX: 83 years / Female INDICATIONS: Status post tube placement. CLINICAL DATA: This is the patient's initial encounter. Patient reports that signs and symptoms have been present for 1 day and indicates a pain score of 0/10. MEDICAL/SURGICAL HISTORY: . Hypertension. Seizures. A-fib, DVT. None. COMPARISON: [facility] – [place], CHEST EXPIRATION ONLY, 11/25/2018. . FINDINGS: A single frontal expiratory view of the chest was performed. The lungs are symmetrically aerated and clear. No evidence of pneumothorax. Mediastinal structures are in the midline. Left-sided small ca liber chest tube unchanged. CONCLUSION: Left-sided chest tube without significant pneumothorax. No change. Electronically signed by: Andrew Bergman MD Board Certified Radiologist 11/26/2018 1:28 PM EST
--- NOTE | 2018-11-26 13:58 | P.PNIM ---
Subjective Interval history: Patient reports slight left lateral chest discomfort. No shortness of breath. No palpitations. Physical Exam Vital signs: Vital Signs 11/25/18 16:00 11/25/18 17:11 11/25/18 18:27 Temperature 98.0 F 98.0 F Pulse Rate 86 86 86 Respiratory Rate 18 18 Blood Pressure 114/63 114/63 Pulse Oximetry 96 96 11/25/18 20:00 11/26/18 00:00 11/26/18 04:31 Temperature 98.1 F Pulse Rate 124 H 109 H 101 H Respiratory Rate 16 Blood Pressure 89/52 L Pulse Oximetry 92 L 11/26/18 08:20 11/26/18 10:40 Temperature 97.5 F L Pulse Rate 94 H 77 Respiratory Rate 16 Blood Pressure 97/58 L 101/59 L Pulse Oximetry 93 L Intake & Output 11/25/18 11/26/18 11/26/18 18:59 06:59 18:59 Output Total 600 / 600 Balance -600 / -600 Weight 77.3 kg Output: Urine 600 / 600 Other: # Voids 2 3 Narrative: GENERAL: This is a well-nourished, well-developed patient, in no apparent distress. CARDIOVASCULAR: regular rate and rhythm CHEST [id number] chest tube in place RESPIRATORY: Clear to auscultation. Breath sounds equal bilaterally. No wheezes , rales, or rhonchi. GASTROINTESTINAL: Abdomen soft, non-tender, nondistended. Normal active bowel sounds MUSCULOSKELETAL: Extremities without clubbing, cyanosis, or edema. NEURO: Alert & Oriented x4 to person, place, time, situation. Moves all ext x4 Results Labs CBC & Chem 7: 11/26/18 10:05 11/26/18 10:05 Labs: Microbiology 11/25/18 11:00 Tissue - Lung Gram Stain - Final 11/25/18 11:00 Tissue - Lung Wound Culture - Preliminary No growth in 24 hours 11/25/18 11:00 Abscess - Lung Fungal Smear - Final No fungal elements seen Imaging Imaging: Impressions Chest X-Ray 11/26/18 12:12 CONCLUSION: Left-sided chest tube without significant pneumothorax. No change. Assessment and Plan (1) Atrial fibrillation with RVR: Code(s): I48.91 - Unspecified atrial fibrillation Status: Acute (2) Lung mass: Code(s): R91.8 - Other nonspecific abnormal finding of lung field Status: Acute (3) Chest pain, rule out acute myocardial infarction: Code(s): R07.9 - Chest pain, unspecified Status: Acute Plan 83-year-old female presented to the emergency room by recommendation of primary care physician for further evaluation of her chest pain with CTA that was found to have a left lower lobe nodule concerning for lung malignancy along with A. fib with RVR Atrial fibrillation with rapid ventricular rate now converted in normal sinus rhythm Has been seen by cardiology who discussed risks of CVA with just aspirin; still recommend an outpatient GI evaluation for consideration of long-term anticoagulation. Patient understands the risks and wants to continue with just aspirin at this time. Continue with metoprolol and digoxin Left-sided pneumothorax status post CT-guided lung [id number] chest tube placed, management per interventional radiology. Left lung massstatus post oncology evaluation, await pathology if for biopsy, follow-up with oncology as an outpatient. Chest paincardiac enzymes are negative, status post cardiology evaluation. Consideration for outpatient Lexiscan for further workup, obtain 2D echo. History of seizure disordercontinue with Dilantin and phenobarbital, increase Dilantin to 3 times daily; dilantin level 1.8 DVT prophylaxis SCDs, patient declined anticoagulation due to history of GI bleed Progress Note: Quality VTE Deep Vein Thrombosis/Pulmonary Embolism Present on Admission: No
--- NOTE | 2018-11-26 15:37 | P.PNONC ---
Subjective Interval history: Patient lying in bed, no acute distress. Reports some mild discomfort at left chest tube site. No other complaints at this time. Denies any shortness of breath. Objective Vital Signs/Intake & Output: Vital Signs 11/25/18 16:00 11/25/18 17:11 11/25/18 18:27 Temperature 98.0 F 98.0 F Pulse Rate 86 86 86 Respiratory Rate 18 18 Blood Pressure 114/63 114/63 Pulse Oximetry 96 96 11/25/18 20:00 11/26/18 00:00 11/26/18 04:31 Temperature 98.1 F Pulse Rate 124 H 109 H 101 H Respiratory Rate 16 Blood Pressure 89/52 L Pulse Oximetry 92 L 11/26/18 08:00 11/26/18 08:20 11/26/18 10:40 Temperature 97.5 F L Pulse Rate 94 H 94 H 77 Respiratory Rate 16 Blood Pressure 97/58 L 101/59 L Pulse Oximetry 93 L 11/26/18 11:45 11/26/18 12:00 Temperature 97.2 F L Pulse Rate 77 75 Respiratory Rate 16 Blood Pressure 104/55 L Pulse Oximetry 93 L Intake & Output 11/25/18 11/26/18 11/26/18 18:59 06:59 18:59 Output Total 600 / 600 Balance -600 / -600 Weight 77.3 kg Output: Urine 600 / 600 Other: # Voids 2 3 Date of Last Bowel Movement 11/25/18 Result Diagrams: 11/26/18 10:05 11/26/18 10:05 Laboratory Results: Laboratory Results - last 24 hr 11/26/18 11/26/18 10:05 10:05 WBC 4.7 RBC 4.33 Hgb 13.8 Hct 40.7 MCV 93.9 MCH 31.7 MCHC 33.8 RDW 14.2 Plt Count 227 MPV 8.0 Neut % (Auto) 60.0 Lymph % (Auto) 27.6 [place] % (Auto) 8.0 Eos % (Auto) 3.2 Baso % (Auto) 1.2 Neut # (Auto) 2.8 Lymph # (Auto) 1.3 [place] # (Auto) 0.4 Eos # (Auto) 0.1 Baso # (Auto) 0.1 WBC Differential . Differential Comment Auto diff final Sodium 141 Potassium 3.9 Chloride 108 H Carbon Dioxide 27.3 Anion Gap 6 BUN 13 Creatinine 0.84 Estimated GFR 65 L Random Glucose 115 H Calcium 8.3 L Phenytoin 1.8 L Culture Results: Microbiology 11/25/18 11:00 Gram Stain - Final Tissue - Lung Wound Culture - Preliminary No growth in 24 hours 11/25/18 11:00 Fungal Smear - Final Abscess - Lung No fungal elements seen Imaging Studies: Impressions Chest X-Ray 11/26/18 12:12 CONCLUSION: Left-sided chest tube without significant pneumothorax. No change. Medications: Active Medications Generic Name Dose Route Start Last Admin Trade Name Freq PRN Reason Stop Dose Admin Digoxin 250 mcg 11/26/18 09:00 11/26/18 09:46 Lanoxin PO 250 mcg DAILY CARLYLE Administration Gabapentin 800 mg 11/25/18 21:00 11/26/18 09:46 Neurontin PO 800 mg BID CARLYLE Administration Metoprolol Tartrate 25 mg 11/25/18 21:00 11/26/18 11:08 Lopressor PO 25 mg BID CARLYLE Administration Oxycodone/Acetaminophen 1 tab 11/25/18 16:30 11/26/18 12:17 Percocet 10/325 Mg PO 1 tab Q6H PRN Administration PAIN SCALE 1 TO 10 Phenobarbital 64.8 mg 11/25/18 21:00 11/26/18 09:46 Phenobarbital PO 64.8 mg BID CARLYLE Administration Objective Remarks: GENERAL: Elderly female patient, in no acute distress. SKIN: Warm and dry. Gauze dressing to left lateral back, dry/intact. HEAD: Normocephalic. EYES: No scleral icterus. No injection or drainage. NECK: Supple, trachea midline. CARDIOVASCULAR: Regular rate and rhythm without murmurs. RESPIRATORY: Posterior breath sounds clear, equal bilaterally. Nonlabored. Left pigtail chest tube draining very minimal. GASTROINTESTINAL: Abdomen soft, non-tender, nondistended. EXTREMITIES: No cyanosis, or edema. Bilateral sequentials in place. MUSCULOSKELETAL: Adequate muscle tone. NEUROLOGICAL: No obvious focal deficit. Awake, alert, and oriented x3. PSYCHIATRIC: Appropriate mood and affect; insight and judgment normal. Assessment/Plan - Plan Patient currently hospitalized for atrial fibrillation and RVR. She was subsequently found to have a 2.6 cm left lower lobe nodule. Status post biopsy. Plan: 1. Left lower lobe nodule, status post biopsy, pathology pending. Left chest tube draining minimal drainage. Denies any shortness of breath. 2. Atrial fibrillation, management per attending and cardiology. 3. Await biopsy results. - Attending Statement The exam, history, and the medical decision-making described in the above note were completed with the assistance of the mid-level provider. I reviewed and agree with the findings presented. I attest that I had a [id number] encounter with the patient on the same day, and personally performed and documented my assessment and findings in the medical record. Complaining of some discomfort of the chest tube site Denies any other complaint today Lung biopsy result is still pending Pneumothorax after the lung biopsy. Chest tube is in place We will follow along with you
--- NOTE | 2018-11-26 18:44 | P.PNCA ---
Subjective Interval history: Main complain is pain on left side chest tube site. Tele: afib RVR HR 100s. Medications and Allergies Active Medications: Active Medications Digoxin (Lanoxin) 250 mcg PO DAILY [facility] Last Admin: 11/26/18 09:46 Dose: 250 mcg Gabapentin (Neurontin) 800 mg PO BID [facility] Last Admin: 11/26/18 09:46 Dose: 800 mg Metoprolol Tartrate (Lopressor) 25 mg PO BID [facility] Last Admin: 11/26/18 11:08 Dose: 25 mg Metoprolol Tartrate (Lopressor Inj) 5 mg IV.PUSH PRN PRN PRN Reason: FOR HR >120 Oxycodone/Acetaminophen (Percocet 10/325 Mg) 1 tab PO Q6H PRN PRN Reason: PAIN SCALE 1 TO 10 Last Admin: 11/26/18 18:27 Dose: 1 tab Phenobarbital (Phenobarbital) 64.8 mg PO BID [facility] Last Admin: 11/26/18 09:46 Dose: 64.8 mg Phenytoin Sodium (Dilantin) 100 mg PO TID [facility] Last Admin: 11/26/18 18:27 Dose: 100 mg Allergies Allergy/AdvReac Type Severity Reaction Status Date / Time bacitracin AdvReac Itching Verified 11/24/18 14:28 [From Rash Relief Antibacterial] dimethicone AdvReac Itching Verified 11/24/18 14:28 [From Rash Relief Antibacterial] zinc oxide AdvReac Itching Verified 11/24/18 14:28 [From Rash Relief Antibacterial] Home Medications Medication Instructions Recorded Confirmed Type aspirin [Aspir-81] 81 mg PO DAILY 11/24/18 11/24/18 History diltiazem HCl 120 mg PO DAILY 11/24/18 11/24/18 History gabapentin 800 mg PO BID 11/24/18 11/24/18 History oxycodone-acetaminophen [Percocet] 1 tab PO Q4HR PRN 11/24/18 11/26/18 History phenobarbital 64.8 mg PO BID 11/24/18 11/24/18 History phenytoin sodium extended 100 mg PO BID 11/24/18 11/24/18 History [Dilantin Extended] Physical Exam Vital signs: Vital Signs 11/25/18 20:00 11/26/18 00:00 11/26/18 04:31 Temperature 98.1 F Pulse Rate 124 H 109 H 101 H Respiratory Rate 16 Blood Pressure 89/52 L Pulse Oximetry 92 L 11/26/18 08:00 11/26/18 08:20 11/26/18 10:40 Temperature 97.5 F L Pulse Rate 94 H 94 H 77 Respiratory Rate 16 Blood Pressure 97/58 L 101/59 L Pulse Oximetry 93 L 11/26/18 11:45 11/26/18 12:00 11/26/18 15:50 Temperature 97.2 F L 98.3 F Pulse Rate 77 75 82 Respiratory Rate 16 16 Blood Pressure 104/55 L 94/51 L Pulse Oximetry 93 L 93 L 11/26/18 16:00 Temperature Pulse Rate 83 Respiratory Rate Blood Pressure Pulse Oximetry Intake & Output 11/25/18 11/26/18 11/26/18 18:59 06:59 18:59 Output Total 600 / 600 Balance -600 / -600 Weight 77.3 kg Output: Urine 600 / 600 Other: # Voids 2 3 Date of Last Bowel Movement 11/25/18 - Constitutional no acute distress - Routine HEENT Exam Eye: Present: EOMI ENT: Present: mucous membranes moist - Routine Neck Exam Present: supple, full ROM, JVD. Absent: carotid bruit - Routine Respiratory Exam Present: distant breath sounds (on left. Chest tube to sucion on left. ) - Routine Cardiovascular Exam Present: S2, tachycardia, irregular rhythm - Routine Abdominal Exam Present: soft, normoactive bowel sounds - Routine Extremities Exam Present: full ROM, normal capillary refill. Absent: edema - Routine Skin Exam Present: intact, dry, warm - Routine Neurological Exam Present: alert, oriented X3, CN II-XII intact Results 11/26/18 10:05 11/26/18 10:05 CBC 11/26/18 Range/Units 10:05 WBC 4.7 (4.0-11.0) th/mm3 RBC 4.33 (4.00-5.30) mil/mm3 Hgb 13.8 (11.6-15.3) gm/dL Hct 40.7 (35.0-46.0) % Plt Count 227 (150-450) th/mm3 Neut # (Auto) 2.8 (1.8-7.7) th/mm3 Lymph # (Auto) 1.3 (1.0-4.8) th/mm3 [place] # (Auto) 0.4 (0.0-0.9) th/mm3 Eos # (Auto) 0.1 (0.0-0.4) th/mm3 Baso # (Auto) 0.1 (0.0-0.2) th/mm3 Comprehensive Metabolic Panel 11/26/18 Range/Units 10:05 Sodium 141 (136-145) meq/L Potassium 3.9 (3.5-5.1) meq/L Chloride 108 H (98-107) meq/L Carbon Dioxide 27.3 (21.0-32.0) meq/L BUN 13 (7-18) mg/dL Creatinine 0.84 (0.50-1.00) mg/dL Calcium 8.3 L (8.5-10.1) mg/dL Intake and Output 11/26/18 11/26/18 11/26/18 06:59 14:59 22:59 Output Total 600 / 600 Balance -600 / -600 Output: Urine 600 / 600 Other: # Voids 3 Date of Last Bowel Movement 11/25/18 Weight 77.3 kg - Imaging and Cardiology Imaging: Impressions Chest Tube Insertion 11/25/18 00:00 CONCLUSION: 1. Uncomplicated chest tube placement as above. Lung Biopsy CT 11/25/18 00:00 CONCLUSION: 1. CT guided biopsy left lung. 2. Aspirate from the carrier needle was placed in a sterile culture tube for Gram stain, culture and sensitivity. 3. Small postprocedural pneumothorax. Chest X-Ray 11/25/18 10:30 CONCLUSION: Moderately large left apical pneumothorax measuring 3.6 cm in depth. Chest X-Ray 11/25/18 12:12 CONCLUSION: 1. Left-sided chest tube in place. 2. Resolution of the previously noted left pneumothorax. Chest X-Ray 11/26/18 12:12 CONCLUSION: Left-sided chest tube without significant pneumothorax. No change. Assessment and Plan - Assessment (1) Atrial fibrillation with RVR Code(s): I48.91 - Unspecified atrial fibrillation Status: Acute (2) Lung mass Code(s): R91.8 - Other nonspecific abnormal finding of lung field Status: Acute (3) Pneumothorax after biopsy Code(s): J95.811 - Postprocedural pneumothorax Status: Acute - Plan 83-year-old female with paroxysmal A. fib, prior DVT, GI bleed with anticoagulation/antiplatelet, newly diagnosed lung mass who was sent by PCP for chest pain Paroxysmal atrial fibrillation/flutter with RVR: BP is marginal, will hold diltiazem for now. Start digoxin with loading dose today for rate control. Will consider adding low-dose metoprolol as well for further rate control if needed and BP allows. Chadsvasc at least 2 due to age, discussed at length elevated CVA risk and benefits of anticoagulation therapy. For now unable to start any anticoagulation with lung biopsy today. The patient is apprehensive about going on any anticoagulation with prior GI bleeding. I did suggest that it would be a good idea to follow-up with gastroenterology as outpatient to discuss possibility of going back on anticoagulation. However, patient states that even if GI were to clear her to go on anticoagulation, she acknowledges the stroke risk and would elect to defer anticoagulation anyway. Check echocardiogram. Atypical chest pain: Symptoms are quite atypical for ischemia, possibly musculoskeletal vs due to lung mass. Troponin normal. Would consider outpatient Lexiscan. 11/26/18: Afib RVR, started PO Metoprolol and PO Digoxin. Likely aggregated by pain and chest tube placement.
[2018-11-27] MEDS: Gabapentin 400 MG Capsule PO SCH ×2 (08:55→20:36)
[2018-11-27] MEDS: Digoxin 250 MCG Tablet PO SCH (08:56)
[2018-11-27] MEDS: Phenytoin Sodium 100 MG Capsule PO SCH ×3 (08:56→17:10)
[2018-11-27] MEDS: Metoprolol Tartrate 25 MG Tablet PO SCH ×2 (08:58→20:36)
[2018-11-27] MEDS: oxyCODONE/Acetaminophen 10/325 Tablet PO SCH ×5 (12:20→22:59)
[2018-11-27] MEDS ORDERED: Sod Chloride 0.9% Inj 1,000 ML IV.CONT SCH (13:23)
--- NOTE | 2018-11-27 13:23 | P.PNIM ---
Subjective Interval history: Patient states that she was taking Percocet every 4 hours as needed at home. Would like frequency change from every 6 to every 4. Patient denies any dizziness. She denies any heart palpitations. Reports some pain over the chest tube area. Physical Exam Vital signs: Vital Signs 11/26/18 15:50 11/26/18 16:00 11/26/18 19:40 Temperature 98.3 F 98.2 F Pulse Rate 82 83 104 H Respiratory Rate 16 16 Blood Pressure 94/51 L 125/57 L Pulse Oximetry 93 L 11/26/18 19:55 11/26/18 20:00 11/26/18 23:05 Temperature 98.1 F Pulse Rate 91 H 94 H Respiratory Rate 16 Blood Pressure 106/58 L Pulse Oximetry 92 L 95 11/27/18 00:00 11/27/18 04:00 11/27/18 05:00 Temperature 97.7 F Pulse Rate 77 106 H 68 Respiratory Rate 16 Blood Pressure 92/60 L Pulse Oximetry 93 L 11/27/18 07:54 Temperature 97.7 F Pulse Rate 106 H Respiratory Rate 16 Blood Pressure 87/54 L Pulse Oximetry 95 Intake & Output 11/26/18 11/27/18 11/27/18 18:59 06:59 18:59 Intake Total 720 / 720 800 / 800 Output Total 1600 / 1600 1500 / 1500 Balance -880 / -880 -700 / -700 Weight 74.6 kg Intake: Oral 720 / 720 800 / 800 Output: Urine 1600 / 1600 1500 / 1500 Other: Date of Last Bowel Movement 11/25/18 Narrative: GENERAL: This is a well-nourished, well-developed patient, in no apparent distress. CARDIOVASCULAR: Irregular rhythm tachycardic rate CHEST [id number] chest tube in place RESPIRATORY: Clear to auscultation. Breath sounds equal bilaterally. No wheezes , rales, or rhonchi. GASTROINTESTINAL: Abdomen soft, non-tender, nondistended. Normal active bowel sounds MUSCULOSKELETAL: Extremities without clubbing, cyanosis, or edema. NEURO: Alert & Oriented x 3 to person, place, time Moves all ext x4 Results Labs CBC & Chem 7: 11/26/18 10:05 11/26/18 10:05 Labs: Microbiology 11/25/18 11:00 Tissue - Lung Gram Stain - Final 11/25/18 11:00 Tissue - Lung Wound Culture - Preliminary No growth in 48 hours Imaging Imaging: Impressions Chest X-Ray 11/26/18 12:12 CONCLUSION: Left-sided chest tube without significant pneumothorax. No change. Assessment and Plan Plan 83-year-old female presented to the emergency room by recommendation of primary care physician for further evaluation of her chest pain with CTA that was found to have a left lower lobe nodule concerning for lung malignancy along with A. fib with RVR Atrial fibrillation with rapid ventricular rate Has been seen by cardiology who discussed risks of CVA with just aspirin; still recommend an outpatient GI evaluation for consideration of long-term anticoagulation. Patient understands the risks and wants to continue with just aspirin at this time. Continue with metoprolol and digoxin Await 2D echo Hypotensionasymptomatic continue with digoxin, IV fluids, decrease metoprolol dose Left-sided pneumothorax status post CT-guided lung [id number] chest tube placed, management per interventional radiology. Left lung massstatus post oncology evaluation, await pathology if for biopsy, follow-up with oncology as an outpatient. Chest paincardiac enzymes are negative, status post cardiology evaluation. Consideration for outpatient Lexiscan for further workup, obtain 2D echo. History of seizure disordercontinue with Dilantin and phenobarbital, increase Dilantin to 3 times daily; dilantin level 1.8 DVT prophylaxis SCDs, patient declined anticoagulation due to history of GI bleed Progress Note: Quality VTE Deep Vein Thrombosis/Pulmonary Embolism Present on Admission: No
[2018-11-27] MEDS ORDERED: diphenhydrAMINE 2%/Zinc Cream 30 GM Tube TOPICAL PRN (13:24)
--- NOTE | 2018-11-27 20:57 | P.PNCA ---
Subjective Interval history: Tele showed atrial flutter, HR in 90s Was in RVR earlier. Medications and Allergies Active Medications: Active Medications Digoxin (Lanoxin) 250 mcg PO DAILY [facility] Last Admin: 11/27/18 08:56 Dose: 250 mcg Gabapentin (Neurontin) 800 mg PO BID [facility] Last Admin: 11/27/18 20:36 Dose: 800 mg Sodium Chloride (Ns Inj) 1,000 mls @ 42 mls/hr IV.CONT .[id number] [facility] Stop: 11/28/18 13:11 Last Admin: 11/27/18 17:14 Dose: 42 mls/hr Metoprolol Tartrate (Lopressor) 25 mg PO BID [facility] Last Admin: 11/27/18 20:36 Dose: Not Given Metoprolol Tartrate (Lopressor Inj) 5 mg IV.PUSH PRN PRN PRN Reason: FOR HR >120 Oxycodone/Acetaminophen (Percocet 10/325 Mg) 1 tab PO Q4HR [facility] Last Admin: 11/27/18 20:36 Dose: Not Given Phenobarbital (Phenobarbital) 64.8 mg PO BID [facility] Last Admin: 11/27/18 20:36 Dose: 64.8 mg Phenytoin Sodium (Dilantin) 100 mg PO TID [facility] Last Admin: 11/27/18 17:10 Dose: 100 mg Zinc Acetate/Diphenhydramine (Benadryl 2% Cream) 1 applicatio TOPICAL Q8H PRN PRN Reason: ITCHING Allergies Allergy/AdvReac Type Severity Reaction Status Date / Time bacitracin AdvReac Itching Verified 11/24/18 14:28 [From Rash Relief Antibacterial] dimethicone AdvReac Itching Verified 11/24/18 14:28 [From Rash Relief Antibacterial] zinc oxide AdvReac Itching Verified 11/24/18 14:28 [From Rash Relief Antibacterial] Home Medications Medication Instructions Recorded Confirmed Type aspirin [Aspir-81] 81 mg PO DAILY 11/24/18 11/24/18 History diltiazem HCl 120 mg PO DAILY 11/24/18 11/24/18 History gabapentin 800 mg PO BID 11/24/18 11/24/18 History oxycodone-acetaminophen [Percocet] 1 tab PO Q4HR PRN 11/24/18 11/26/18 History phenobarbital 64.8 mg PO BID 11/24/18 11/24/18 History phenytoin sodium extended 100 mg PO BID 11/24/18 11/24/18 History [Dilantin Extended] Physical Exam Vital signs: Vital Signs 11/26/18 23:05 11/27/18 00:00 11/27/18 04:00 Temperature 98.1 F 97.7 F Pulse Rate 94 H 77 106 H Respiratory Rate 16 16 Blood Pressure 106/58 L 92/60 L Pulse Oximetry 95 93 L 11/27/18 05:00 11/27/18 07:54 11/27/18 08:00 Temperature 97.7 F Pulse Rate 68 106 H 100 H Respiratory Rate 16 Blood Pressure 87/54 L Pulse Oximetry 95 11/27/18 11:50 11/27/18 12:00 11/27/18 16:00 Temperature 97.7 F Pulse Rate 94 H 99 H 82 Respiratory Rate 16 Blood Pressure 95/49 L Pulse Oximetry 95 11/27/18 16:07 Temperature 97.5 F L Pulse Rate 80 Respiratory Rate 18 Blood Pressure 101/54 L Pulse Oximetry 95 Intake & Output 11/27/18 11/27/18 11/28/18 06:59 18:59 06:59 Intake Total 800 / 800 Output Total 1500 / 1500 Balance -700 / -700 Weight 74.6 kg Intake: Oral 800 / 800 Output: Urine 1500 / 1500 Other: Date of Last Bowel Movement 11/25/18 Narrative: - Constitutional no acute distress - Routine HEENT Exam Eye: Present: EOMI ENT: Present: mucous membranes moist - Routine Neck Exam Present: supple, full ROM, JVD. Absent: carotid bruit - Routine Respiratory Exam Present: distant breath sounds (on left. Chest tube to sucion on left. ) - Routine Cardiovascular Exam Present: S2, tachycardia, irregular rhythm - Routine Abdominal Exam Present: soft, normoactive bowel sounds - Routine Extremities Exam Present: full ROM, normal capillary refill. Absent: edema - Routine Skin Exam Present: intact, dry, warm - Routine Neurological Exam Present: alert, oriented X3, CN II-XII intact Results 11/26/18 10:05 11/26/18 10:05 CBC 11/26/18 Range/Units 10:05 WBC 4.7 (4.0-11.0) th/mm3 RBC 4.33 (4.00-5.30) mil/mm3 Hgb 13.8 (11.6-15.3) gm/dL Hct 40.7 (35.0-46.0) % Plt Count 227 (150-450) th/mm3 Neut # (Auto) 2.8 (1.8-7.7) th/mm3 Lymph # (Auto) 1.3 (1.0-4.8) th/mm3 Webster # (Auto) 0.4 (0.0-0.9) th/mm3 Eos # (Auto) 0.1 (0.0-0.4) th/mm3 Baso # (Auto) 0.1 (0.0-0.2) th/mm3 Comprehensive Metabolic Panel 11/26/18 Range/Units 10:05 Sodium 141 (136-145) meq/L Potassium 3.9 (3.5-5.1) meq/L Chloride 108 H (98-107) meq/L Carbon Dioxide 27.3 (21.0-32.0) meq/L BUN 13 (7-18) mg/dL Creatinine 0.84 (0.50-1.00) mg/dL Calcium 8.3 L (8.5-10.1) mg/dL Intake and Output 11/27/18 11/27/18 11/27/18 06:59 14:59 22:59 Intake Total 800 / 800 Output Total 1500 / 1500 Balance -700 / -700 Intake: Oral 800 / 800 Output: Urine 1500 / 1500 Other: Date of Last Bowel Movement 11/25/18 Weight 74.6 kg - Imaging and Cardiology Imaging: Impressions Chest X-Ray 11/26/18 12:12 CONCLUSION: Left-sided chest tube without significant pneumothorax. No change. Assessment and Plan - Assessment (1) Atrial fibrillation with RVR Code(s): I48.91 - Unspecified atrial fibrillation Status: Acute (2) Lung mass Code(s): R91.8 - Other nonspecific abnormal finding of lung field Status: Acute (3) Pneumothorax after biopsy Code(s): J95.811 - Postprocedural pneumothorax Status: Acute - Plan 83-year-old female with paroxysmal A. fib, prior DVT, GI bleed with anticoagulation/antiplatelet, newly diagnosed lung mass who was sent by PCP for chest pain Paroxysmal atrial fibrillation/flutter with RVR: BP is marginal, will hold diltiazem for now. Start digoxin with loading dose today for rate control. Will consider adding low-dose metoprolol as well for further rate control if needed and BP allows. Chadsvasc at least 2 due to age, discussed at length elevated CVA risk and benefits of anticoagulation therapy. For now unable to start any anticoagulation with lung biopsy today. The patient is apprehensive about going on any anticoagulation with prior GI bleeding. I did suggest that it would be a good idea to follow-up with gastroenterology as outpatient to discuss possibility of going back on anticoagulation. However, patient states that even if GI were to clear her to go on anticoagulation, she acknowledges the stroke risk and would elect to defer anticoagulation anyway. Check echocardiogram. Atypical chest pain: Symptoms are quite atypical for ischemia, possibly musculoskeletal vs due to lung mass. Troponin normal. Would consider outpatient Lexiscan. 11/26/18: Afib RVR, started PO Metoprolol and PO Digoxin. Likely aggregated by pain and chest tube placement. 11/27/18: Still in Afib. better HR control. Dr. Melgar will resume care of this patient tomorrow.
[2018-11-28] MEDS: oxyCODONE/Acetaminophen 10/325 Tablet PO SCH ×5 (05:18→20:34)
--- NOTE | 2018-11-28 07:31 | P.PNFP ---
Subjective Interval history: seen at bedside with exercise manager, extensively discussed wathchman and options. discussed with nursing. pt c/o weakness, c/o overall pain. Results - Labs Result diagrams: 11/26/18 10:05 11/26/18 10:05 Physical Exam Vital signs: Vital Signs 11/27/18 07:54 11/27/18 08:00 11/27/18 11:50 Temperature 97.7 F 97.7 F Pulse Rate 106 H 100 H 94 H Respiratory Rate 16 16 Blood Pressure 87/54 L 95/49 L Pulse Oximetry 95 95 11/27/18 12:00 11/27/18 16:00 11/27/18 16:07 Temperature 97.5 F L Pulse Rate 99 H 82 80 Respiratory Rate 18 Blood Pressure 101/54 L Pulse Oximetry 95 11/27/18 19:20 11/27/18 20:00 11/27/18 23:25 Temperature 97.5 F L 97.1 F L Pulse Rate 84 83 74 Respiratory Rate 18 18 Blood Pressure 97/52 L 105/53 L Pulse Oximetry 96 97 96 11/28/18 00:00 11/28/18 00:39 11/28/18 04:00 Temperature 97.9 F Pulse Rate 78 90 Respiratory Rate 16 18 Blood Pressure 106/59 L Pulse Oximetry 93 L Intake & Output 11/27/18 11/28/18 11/28/18 18:59 06:59 18:59 Intake Total 720 / 720 Output Total 1700 / 1700 0 / 0 Balance -980 / -980 0 / 0 Weight 75.9 kg Intake: Oral 720 / 720 Output: Urine 1700 / 1700 Chest Tube Drainage 0 / 0 Left 0 / 0 Other: Date of Last Bowel Movement 11/25/18 11/28/18 - Constitutional no acute distress, chronically ill appearing - Routine HEENT Exam Head: Present: normocephalic Eye: Present: EOMI - Routine Neck Exam Present: supple, full ROM - Routine Respiratory Exam Present: CTA bilaterally, distant breath sounds - Routine Cardiovascular Exam Present: RRR, S1, S2 - Routine Abdominal Exam Present: soft, normoactive bowel sounds - Routine Extremities Exam Present: normal capillary refill - Routine Skin Exam Present: intact - Routine Neurological Exam Present: alert, oriented X3 - Detailed Neurological Exam: Coma Scale Eye Opening: Spontaneous Verbal Response: Oriented Motor Response: Obey commands [place] Coma Scale Total: 15 - Routine Psychiatric Exam Present: normal affect, normal thought process Assessment and Plan - Assessment (1) Atrial fibrillation with RVR Code(s): I48.91 - Unspecified atrial fibrillation Status: Acute (2) Lung mass Code(s): R91.8 - Other nonspecific abnormal finding of lung field Status: Acute (3) Chest pain, rule out acute myocardial infarction Code(s): R07.9 - Chest pain, unspecified Status: Acute - Assessment and Plan A/P- CP- cardiology consult, echo ordered, LUNG MASS- oncology consult, bx results pending, CT w/o output, consult pulm for timing of removal of ct tube. AFIB RVR- digoxin, holding home dose diltiazem, on metoprolol, might have watchman placed as outpatient with dr bloom, CAD SZ- dilantin and phenobarb CHRONIC PAIN SYNDROME- continue percocet GIB HX- monitor, asa, DVT HX
--- NOTE | 2018-11-28 08:17 | P.PNCA ---
Subjective Interval history: patient reports feeling well. No chest pain and breathing well. 2D echo being performed at bedside. Currently in sinus rhythm, rate controlled. metoprolol held last night due to hypotension Medications and Allergies Allergies Allergy/AdvReac Type Severity Reaction Status Date / Time bacitracin AdvReac Itching Verified 11/24/18 14:28 [From Rash Relief Antibacterial] dimethicone AdvReac Itching Verified 11/24/18 14:28 [From Rash Relief Antibacterial] zinc oxide AdvReac Itching Verified 11/24/18 14:28 [From Rash Relief Antibacterial] Home Medications Medication Instructions Recorded Confirmed Type aspirin [Aspir-81] 81 mg PO DAILY 11/24/18 11/24/18 History diltiazem HCl 120 mg PO DAILY 11/24/18 11/24/18 History gabapentin 800 mg PO BID 11/24/18 11/24/18 History oxycodone-acetaminophen [Percocet] 1 tab PO Q4HR PRN 11/24/18 11/26/18 History phenobarbital 64.8 mg PO BID 11/24/18 11/24/18 History phenytoin sodium extended 100 mg PO BID 11/24/18 11/24/18 History [Dilantin Extended] Active Medications: Active Medications Digoxin (Lanoxin) 250 mcg PO DAILY [facility] Last Admin: 11/27/18 08:56 Dose: 250 mcg Gabapentin (Neurontin) 800 mg PO BID [facility] Last Admin: 11/27/18 20:36 Dose: 800 mg Sodium Chloride (Ns Inj) 1,000 mls @ 42 mls/hr IV.CONT .[id number] [facility] Stop: 11/28/18 13:11 Last Admin: 11/27/18 17:14 Dose: 42 mls/hr Metoprolol Tartrate (Lopressor) 25 mg PO BID [facility] Last Admin: 11/27/18 20:36 Dose: Not Given Metoprolol Tartrate (Lopressor Inj) 5 mg IV.PUSH PRN PRN PRN Reason: FOR HR >120 Oxycodone/Acetaminophen (Percocet 10/325 Mg) 1 tab PO Q4HR [facility] Last Admin: 11/28/18 05:18 Dose: Not Given Phenobarbital (Phenobarbital) 64.8 mg PO BID [facility] Last Admin: 11/27/18 20:36 Dose: 64.8 mg Phenytoin Sodium (Dilantin) 100 mg PO TID [facility] Last Admin: 11/27/18 17:10 Dose: 100 mg Zinc Acetate/Diphenhydramine (Benadryl 2% Cream) 1 applicatio TOPICAL Q8H PRN PRN Reason: ITCHING Physical Exam Vital signs: Vital Signs 11/27/18 11:50 11/27/18 12:00 11/27/18 16:00 Temperature 97.7 F Pulse Rate 94 H 99 H 82 Respiratory Rate 16 Blood Pressure 95/49 L Pulse Oximetry 95 11/27/18 16:07 11/27/18 19:20 11/27/18 20:00 Temperature 97.5 F L 97.5 F L Pulse Rate 80 84 83 Respiratory Rate 18 18 Blood Pressure 101/54 L 97/52 L Pulse Oximetry 95 96 97 11/27/18 23:25 11/28/18 00:00 11/28/18 00:39 Temperature 97.1 F L Pulse Rate 74 78 Respiratory Rate 18 16 Blood Pressure 105/53 L Pulse Oximetry 96 11/28/18 04:00 Temperature 97.9 F Pulse Rate 90 Respiratory Rate 18 Blood Pressure 106/59 L Pulse Oximetry 93 L Intake & Output 11/27/18 11/28/18 11/28/18 18:59 06:59 18:59 Intake Total 720 / 720 Output Total 1700 / 1700 0 / 0 Balance -980 / -980 0 / 0 Weight 75.9 kg Intake: Oral 720 / 720 Output: Urine 1700 / 1700 Chest Tube Drainage 0 / 0 Left 0 / 0 Other: Date of Last Bowel Movement 11/25/18 11/28/18 Narrative: GENERAL: SKIN: Warm and dry. HEAD: Normocephalic. EYES: No scleral icterus. No injection or drainage. NECK: Supple, trachea midline. No JVD or lymphadenopathy. CARDIOVASCULAR: Regular rate and rhythm without murmurs, gallops, or rubs. RESPIRATORY: Breath sounds equal bilaterally. No accessory muscle use. GASTROINTESTINAL: Abdomen soft, non-tender, nondistended. MUSCULOSKELETAL: No cyanosis, or edema. Results 11/26/18 10:05 11/26/18 10:05 CBC 11/26/18 Range/Units 10:05 WBC 4.7 (4.0-11.0) th/mm3 RBC 4.33 (4.00-5.30) mil/mm3 Hgb 13.8 (11.6-15.3) gm/dL Hct 40.7 (35.0-46.0) % Plt Count 227 (150-450) th/mm3 Neut # (Auto) 2.8 (1.8-7.7) th/mm3 Lymph # (Auto) 1.3 (1.0-4.8) th/mm3 Daniels # (Auto) 0.4 (0.0-0.9) th/mm3 Eos # (Auto) 0.1 (0.0-0.4) th/mm3 Baso # (Auto) 0.1 (0.0-0.2) th/mm3 Comprehensive Metabolic Panel 11/26/18 Range/Units 10:05 Sodium 141 (136-145) meq/L Potassium 3.9 (3.5-5.1) meq/L Chloride 108 H (98-107) meq/L Carbon Dioxide 27.3 (21.0-32.0) meq/L BUN 13 (7-18) mg/dL Creatinine 0.84 (0.50-1.00) mg/dL Calcium 8.3 L (8.5-10.1) mg/dL Intake and Output 11/27/18 11/28/18 11/28/18 22:59 06:59 14:59 Intake Total 720 / 720 Output Total 1700 / 1700 0 / 0 Balance -980 / -980 0 / 0 Intake: Oral 720 / 720 Output: Urine 1700 / 1700 Chest Tube Drainage 0 / 0 Left 0 / 0 Other: Date of Last Bowel Movement 11/28/18 Weight 75.9 kg - Imaging and Cardiology Imaging: Impressions Chest X-Ray 11/26/18 12:12 CONCLUSION: Left-sided chest tube without significant pneumothorax. No change. Assessment and Plan - Plan 83-year-old female with paroxysmal A. fib, prior DVT, GI bleed with anticoagulation/antiplatelet, newly diagnosed lung mass who was sent by PCP for chest pain Paroxysmal atrial fibrillation/flutter with RVR: patient went in to afib RVR over the weekend; currently in NSR, rate controlled with digoxin 250mcg and metoprolol 25mg BID (metoprolol held last night). SBP 106. 2D echo pending CHADS-Vasc score is at least 3; discussed at length elevated CVA risk and benefits of anticoagulation therapy. The patient is apprehensive about going on any anticoagulation with prior GI bleeding. I did suggest that it would be a good idea to follow-up with gastroenterology as outpatient to discuss possibility of going back on anticoagulation. However, patient states that even if GI were to clear her to go on anticoagulation, she acknowledges the stroke risk and would elect to defer anticoagulation anyway. May be a candidate for Watchman LAAO device as outpatient if she is amenable to being on anticoagulation therapy for short term of 3 months. She will need to establish with a compass operator to continue discussions of this option. recommend asa 81mg. Atypical chest pain: Symptoms are quite atypical for ischemia, possibly musculoskeletal vs due to lung mass / biopsy / PTX. Troponin normal. Would consider Lexiscan for ischemia evaluation which may be completed as outpatient vs prior to d/c. lung mass- biopsy pending Will sign off. Call with further questions.
[2018-11-28] MEDS: Gabapentin 400 MG Capsule PO SCH ×2 (09:00→20:34)
[2018-11-28] MEDS: Digoxin 250 MCG Tablet PO SCH (09:00)
[2018-11-28] MEDS: Phenytoin Sodium 100 MG Capsule PO SCH ×3 (09:01→17:52)
[2018-11-28] MEDS: Metoprolol Tartrate 25 MG Tablet PO SCH ×2 (09:02→20:43)
--- NOTE | 2018-11-28 13:52 | P.PNONC ---
Subjective Interval history: Patient sitting up in bed watching TV, in no acute distress. Denies any chest pain or shortness of breath, states that she is ready for the chest tube to come out. Objective Vital Signs/Intake & Output: Vital Signs 11/27/18 16:00 11/27/18 16:07 11/27/18 19:20 Temperature 97.5 F L 97.5 F L Pulse Rate 82 80 84 Respiratory Rate 18 18 Blood Pressure 101/54 L 97/52 L Pulse Oximetry 95 96 11/27/18 20:00 11/27/18 23:25 11/28/18 00:00 Temperature 97.1 F L Pulse Rate 83 74 78 Respiratory Rate 18 Blood Pressure 105/53 L Pulse Oximetry 97 96 11/28/18 00:39 11/28/18 04:00 11/28/18 08:06 Temperature 97.9 F 97.6 F Pulse Rate 90 74 Respiratory Rate 16 18 18 Blood Pressure 106/59 L 96/53 L Pulse Oximetry 93 L 96 11/28/18 08:50 11/28/18 12:00 11/28/18 12:06 Temperature 97.5 F L Pulse Rate 69 71 78 Respiratory Rate 18 Blood Pressure 107/51 L Pulse Oximetry 99 Intake & Output 11/27/18 11/28/18 11/28/18 18:59 06:59 18:59 Intake Total 720 / 720 Output Total 1700 / 1700 0 / 0 Balance -980 / -980 0 / 0 Weight 75.9 kg Intake: Oral 720 / 720 Output: Urine 1700 / 1700 Chest Tube Drainage 0 / 0 Left 0 / 0 Other: Date of Last Bowel Movement 11/25/18 11/28/18 11/28/18 Result Diagrams: 11/26/18 10:05 11/26/18 10:05 Culture Results: Microbiology 11/25/18 11:00 Gram Stain - Final Tissue - Lung Wound Culture - Final No growth in 72 hours (aerobically and anaerobically) 11/25/18 11:00 Fungal Smear - Final Abscess - Lung No fungal elements seen Medications: Active Medications Generic Name Dose Route Start Last Admin Trade Name Freq PRN Reason Stop Dose Admin Digoxin 250 mcg 11/26/18 09:00 11/28/18 09:00 Lanoxin PO 250 mcg DAILY CAR[facility]LE Administration Gabapentin 800 mg 11/25/18 21:00 11/28/18 09:00 Neurontin PO 800 mg BID [facility]LE Administration Metoprolol Tartrate 25 mg 11/25/18 21:00 11/28/18 09:02 Lopressor PO Not Given BID [facility] Oxycodone/Acetaminophen 1 tab 11/27/18 12:00 11/28/18 12:20 Percocet 10/325 Mg PO 1 tab Q4HR [facility] Administration Phenobarbital 64.8 mg 11/25/18 21:00 11/28/18 09:01 Phenobarbital PO 64.8 mg BID [facility]LE Administration Phenytoin Sodium 100 mg 11/26/18 18:00 11/28/18 12:19 Dilantin PO 100 mg TID [facility] Administration Objective Remarks: GENERAL: Elderly female patient, in no acute distress. SKIN: Warm and dry. Gauze dressing to left lateral back, dry/intact. Chest tube insertion site left upper chest, dressing dry and intact. HEAD: Normocephalic. EYES: No scleral icterus. No injection or drainage. NECK: Supple, trachea midline. CARDIOVASCULAR: Regular rate and rhythm without murmurs. RESPIRATORY: Posterior breath sounds clear, equal bilaterally. Nonlabored. Left pigtail chest tube draining very minimal. GASTROINTESTINAL: Abdomen soft, non-tender, nondistended. EXTREMITIES: No cyanosis, or edema. MUSCULOSKELETAL: Adequate muscle tone. NEUROLOGICAL: No obvious focal deficit. Awake, alert, and oriented x3. PSYCHIATRIC: Appropriate mood and affect; insight and judgment normal. Assessment/Plan - Plan Patient currently hospitalized for atrial fibrillation and RVR. She was subsequently found to have a 2.6 cm left lower lobe nodule. Status post biopsy. Plan: 1. Left lower lobe nodule, status post biopsy, pathology pending. Left chest tube draining minimal drainage. Denies any shortness of breath. 2. Atrial fibrillation, management per attending and cardiology. 3. Await biopsy results.
--- NOTE | 2018-11-28 15:19 | XR ---
EXAM DATE: 11/28/2018 3:12 PM EST AGE/SEX: 83 years / Female INDICATIONS: Follow-up left pneumothorax. CLINICAL DATA: This is the patient's subsequent encounter. Patient reports that signs and symptoms h ave been present for 4 - 6 days and indicates a pain score of 0/10. MEDICAL/SURGICAL HISTORY: . Hypertension. Seizures. A-fib, DVT. None. [place] [facility] [place] 3D[place] [facility] [place] 9. . FINDINGS: Chronic interstitial opacities are again noted. Patient's known mass in the superior segment of the l eft lower lobe is difficult to see radiographically. A left chest tube is in place. No perceptible pn eumothorax. No pleural effusion seen. Heart size stable, within normal limits. CONCLUSION: Left chest tube remains in place. No pneumothorax. Mild chronic interstitial opacities are again seen . Electronically signed by: Balbir Alvarez MD Board Certified Radiologist 11/28/2018 3:18 PM EST
--- NOTE | 2018-11-28 19:00 | MB ---
cc: Radha Garcia MD DATE: 11/28/2018 REASON FOR CONSULTATION: Removal of chest tube. HISTORY OF PRESENT ILLNESS: The patient is an 83-year-old female admitted with right-sided chest pain. CT scan of the chest was undertaken with evidence of 2.6 cm lobular nodular lobular mass, left lower lobe for which a needle lung biopsy was undertaken. Postop pneumothorax developed. The chest tube drained. The patient is stable post chest tube placement. No recurrent pneumothorax noted. Last chest x-ray done this a.m. with a left chest tube in place, no pneumothorax and interstitial change noted, but increased interstitial markings noted bilaterally. The patient without fever, chill, cough, expectoration, or shortness of breath. Pathology report is pending at this time. PAST MEDICAL HISTORY: Atrial fibrillation with rapid ventricular response, DVT, hypertension, seizure disorder. SOCIAL HISTORY: Remote smoking history, has not smoked for years. Does not drink any alcohol, does not use drugs. MEDICATIONS: Include: 1. Dilantin 2. Oxycodone. 3. Digoxin. 4. Ecotrin. 5. Diltiazem. 6. Gabapentin. 7. Aspirin. ALLERGIES: BACITRACIN, DIMETHICONE, ZINC OXIDE. FAMILY HISTORY: Noncontributory. REVIEW OF SYSTEMS: A 12-point review of systems as per HPI and past history, otherwise negative. PHYSICAL EXAMINATION: VITAL SIGNS: Temperature 98, pulse 90, respirations 18, blood pressure 120/60. HEENT: Unremarkable. Eyes without icterus. NECK: Without adenopathy, thyroid enlargement. Central trachea. CHEST: Few scattered rhonchi at bases. CARDIAC: Irregularity noted. ABDOMEN: Lax, audible bowel sounds. EXTREMITIES: No clubbing, cyanosis, or edema. LABORATORY DATA: White count 4.7, hemoglobin 13, hematocrit 40, platelets 227,000. INR 1.0. Sodium 141, potassium 3.9, BUN 6, creatinine 13. IMPRESSION: 1. Left lower lobe lung mass, malignancy suspect. 2. Post-biopsy pneumothorax. 3. Atrial fibrillation. 4. History of deep venous thrombosis. 5. Hypertension. 6. History of seizure disorder. PLAN: The patient's chest tube seems to have resolved underlying pneumothorax. The patient is clinically stable. I would clamp her chest tube and if no recurrence is noted, then obviously the chest tube will be removed. The patient is followed by oncology. Pathology is pending at this time. I do thank you for asking me to partake in the patient's care. Radha Garcia MD WWW/sv/ll , 05:55 PM , 06:04 PM
--- NOTE | 2018-11-28 19:12 | ECHRPT ---
Indication: Atrial Fib and Flutter CONCLUSIONS In limited views, the left ventricular systolic function is normal with an estimated ejection fracti on in the range of 55-60%. Wall thickness is measured at the upper limits of normal. The right ventricle is mildly dilated. Trace mitral valve regurgitation. There is mild tricuspid valve regurgitation. BP: / HR: Rhythm: MEASUREMENTS (Male / Female) Normal Values Technical Quality:Fair 2D ECHO LV Diastolic Diameter PLAX 4.2 cm 4.2 - 5.9 / 3.9 - 5.3 cm LV Systolic Diameter PLAX 2.9 cm IVS Diastolic Thickness 1.0 cm 0.6 - 1.0 / 0.6 - 0.9 cm LVPW Diastolic Thickness 1.0 cm 0.6 - 1.0 / 0.6 - 0.9 cm LV Relative Wall Thickness 0.5 RV Internal Dim ED PLAX 2.5 cm LVOT Diameter 1.9 cm Aortic Root Diameter 3.0 cm LA Systolic Diameter LX 2.5 cm 3.0 - 4.0 / 2.7 - 3.8 cm M-MODE AV Cusp Separation MM 1.5 cm DOPPLER AV Peak Velocity 119.0 cm/s AV Peak Gradient 5.7 mmHg LVOT Peak Velocity 97.2 cm/s LVOT Peak Gradient 3.8 mmHg AV Area Cont Eq pk 2.3 cm Mitral E Point Velocity 49.9 cm/s Mitral A Point Velocity 64.7 cm/s Mitral E to A Ratio 0.8 LV E' Lateral Velocity 9.8 cm/s Mitral E to LV E' Lateral Ratio 5.1 LV E' Septal Velocity 6.7 cm/s Mitral E to LV E' Septal Ratio 7.4 TR Peak Velocity 267.0 cm/s TR Peak Gradient 28.5 mmHg Right Atrial Pressure 10.0 mmHg Pulmonary Artery Systolic Pressu 38.5 mmHg Right Ventricular Systolic Press 38.5 mmHg PV Peak Velocity 86.9 cm/s PV Peak Gradient 3.0 mmHg FINDINGS LEFT VENTRICLE Normal left ventricular size. Wall thickness is measured at the upper limits of normal. In limited views, the left ventricular systolic function is normal with an estimated ejection fracti on in the range of 55-60%. RIGHT VENTRICLE The right ventricle is mildly dilated. The right ventricular systoilc function is normal. LEFT ATRIUM The left atrial size is normal. RIGHT ATRIUM The right atrial size is normal. ATRIAL SEPTUM Normal atrial septal thickness without atrial level shunting by limited color doppler interrogation. AORTA The aortic root and proximal ascending aorta are normal in size on limited imaging. MITRAL VALVE Structurally normal mitral valve. Trace mitral valve regurgitation. No mitral valve stenosis. AORTIC VALVE Trileaflet aortic valve. No aortic valve stenosis or regurgitation. TRICUSPID VALVE Structurally normal tricuspid valve. There is mild tricuspid valve regurgitation. The estimated pulmonary arterial pressure is 39 mmHg. PULMONARY VALVE The pulmonary valve is not well visualized. VESSELS The inferior vena cava was not well visualized. PERICARDIUM No pericardial effusion. Westley Galindo DO (Electronically Signed) Final Date:28 November 2018 19:11
[2018-11-29] MEDS: oxyCODONE/Acetaminophen 10/325 Tablet PO SCH ×6 (01:02→21:16)
--- NOTE | 2018-11-29 06:58 | XR ---
EXAM DATE: 11/29/2018 6:54 AM EST AGE/SEX: 83 years / Female INDICATIONS: . Pain left chest around chest tube. Evaluate left side pneumothorax. CLINICAL DATA: This is the patient's subsequent encounter. Patient reports that signs and symptoms h ave been present for 4 - 6 days and indicates a pain score of 5/10. MEDICAL/SURGICAL HISTORY: Seizures. Hypertension. DVT, A-fib Chest tube, left. COMPARISON: [facility] [place], [place]/2018. . FINDINGS: Stable left apical chest tube in place without significant pneumothorax. Mild diffuse interstitial pr ominence with minimal airspace disease at the left lung base. Cardiomediastinal contours are stable. Remainder of the exam is unchanged. CONCLUSION: 1. Stable left apical chest tube without pneumothorax. 2. Stable mild airspace disease at the left lung base, presumably atelectasis. Electronically signed by: Raheem Hale MD Board Certified Radiologist 11/29/2018 6:56 AM EST
--- NOTE | 2018-11-29 08:10 | P.PN ---
Subjective Interval history: alert cough persists no sob at rest Physical Exam Vital signs: Vital Signs 11/28/18 08:50 11/28/18 12:00 11/28/18 12:06 Temperature 97.5 F L Pulse Rate 69 71 78 Respiratory Rate 18 Blood Pressure 107/51 L Pulse Oximetry 99 11/28/18 16:00 11/28/18 16:06 11/28/18 19:54 Temperature 97.4 F L Pulse Rate 96 H 91 H 78 Respiratory Rate 17 Blood Pressure 111/60 Pulse Oximetry 96 11/28/18 20:00 11/29/18 00:00 11/29/18 00:01 Temperature 97.6 F 99.2 F Pulse Rate 75 97 H 121 H Respiratory Rate 16 16 Blood Pressure 102/56 L 102/58 L Pulse Oximetry 95 93 L 11/29/18 03:51 11/29/18 04:00 Temperature 97.8 F Pulse Rate 118 H 102 H Respiratory Rate 16 Blood Pressure 125/73 Pulse Oximetry 94 L Intake & Output 11/28/18 11/29/18 11/29/18 18:59 06:59 18:59 Intake Total 1720 / 1720 240 / 240 Output Total 0 / 0 600 / 600 Balance 1720 / 1720 -360 / -360 Weight 75.9 kg Intake: IV 1000 / 1000 NS Inj 1,000 ML @ 42 mls/hr IV. 1000 / 1000 CONT .[id number] [facility] Rx#:[id number] Oral 720 / 720 240 / 240 Output: Urine 600 / 600 Chest Tube Drainage 0 / 0 Left 0 / 0 Other: # Voids 4 Date of Last Bowel Movement 11/28/18 # Bowel Movements 0 Narrative: GENERAL: SKIN: Warm and dry. HEAD: Normocephalic. EYES: No scleral icterus. No injection or drainage. NECK: Supple, trachea midline. No JVD or lymphadenopathy. CARDIOVASCULAR: Regular rate and rhythm without murmurs, gallops, or rubs. RESPIRATORY: Breath sounds equal bilaterally. No accessory muscle use. GASTROINTESTINAL: Abdomen soft, non-tender, nondistended. MUSCULOSKELETAL: No cyanosis, or edema. Results - Labs CBC & Chem 7: 11/26/18 10:05 11/26/18 10:05 Microbiology 11/25/18 11:00 Abscess - Lung Acid Fast Bacilli Smear - Final No acid fast bacilli seen 11/25/18 11:00 Tissue - Lung Gram Stain - Final 11/25/18 11:00 Tissue - Lung Wound Culture - Final No growth in 72 hours (aerobically and anaerobically ) - Imaging Impressions Chest X-Ray 11/28/18 00:00 CONCLUSION: Left chest tube remains in place. No pneumothorax. Mild chronic interstitial opacities are again seen. Chest X-Ray 11/29/18 06:00 CONCLUSION: 1. Stable left apical chest tube without pneumothorax. 2. Stable mild airspace disease at the left lung base, presumably atelectasis. Assessment and Plan - Plan persistent cough metastatic breast CA Oesophageal stricture plan bronchoscopy today
[2018-11-29] MEDS: Phenytoin Sodium 100 MG Capsule PO SCH ×3 (09:03→17:30)
[2018-11-29] MEDS: Metoprolol Tartrate 25 MG Tablet PO SCH ×2 (09:03→21:19)
[2018-11-29] MEDS: Gabapentin 400 MG Capsule PO SCH ×2 (09:03→21:16)
[2018-11-29] MEDS: Digoxin 250 MCG Tablet PO SCH (09:04)
--- NOTE | 2018-11-29 10:14 | P.PNFP ---
Subjective Interval history: seen with , she reports she would not want to have lung ca chemo, but would want resection. discussed with nursing. Results - Labs Result diagrams: 11/26/18 10:05 11/26/18 10:05 - Imaging Impressions Chest X-Ray 11/28/18 00:00 CONCLUSION: Left chest tube remains in place. No pneumothorax. Mild chronic interstitial opacities are again seen. Chest X-Ray 11/29/18 06:00 CONCLUSION: 1. Stable left apical chest tube without pneumothorax. 2. Stable mild airspace disease at the left lung base, presumably atelectasis. Physical Exam Vital signs: Vital Signs 11/28/18 12:00 11/28/18 12:06 11/28/18 16:00 Temperature 97.5 F L Pulse Rate 71 78 96 H Respiratory Rate 18 Blood Pressure 107/51 L Pulse Oximetry 99 11/28/18 16:06 11/28/18 19:54 11/28/18 20:00 Temperature 97.4 F L 97.6 F Pulse Rate 91 H 78 75 Respiratory Rate 17 16 Blood Pressure 111/60 102/56 L Pulse Oximetry 96 95 11/29/18 00:00 11/29/18 00:01 11/29/18 03:51 Temperature 99.2 F Pulse Rate 97 H 121 H 118 H Respiratory Rate 16 Blood Pressure 102/58 L Pulse Oximetry 93 L 11/29/18 04:00 11/29/18 08:00 Temperature 97.8 F 97.5 F L Pulse Rate 102 H 79 Respiratory Rate 16 18 Blood Pressure 125/73 110/61 Pulse Oximetry 94 L 95 Intake & Output 11/28/18 11/29/18 11/29/18 18:59 06:59 18:59 Intake Total 1720 / 1720 240 / 240 Output Total 0 / 0 600 / 600 Balance 1720 / 1720 -360 / -360 Weight 75.9 kg Intake: IV 1000 / 1000 NS Inj 1,000 ML @ 42 mls/hr IV. 1000 / 1000 CONT .[id number] [facility] Rx#:[id number] Oral 720 / 720 240 / 240 Output: Urine 600 / 600 Chest Tube Drainage 0 / 0 Left 0 / 0 Other: # Voids 4 Date of Last Bowel Movement 11/28/18 # Bowel Movements 0 - Constitutional no acute distress, chronically ill appearing - Routine HEENT Exam Head: Present: normocephalic Eye: Present: EOMI - Routine Neck Exam Present: supple - Routine Respiratory Exam Present: CTA bilaterally - Routine Cardiovascular Exam Present: RRR, S1, S2 - Routine Abdominal Exam Present: soft, normoactive bowel sounds - Routine Extremities Exam Present: normal capillary refill - Routine Skin Exam Present: intact - Routine Neurological Exam Present: alert, oriented X3 - Detailed Neurological Exam: Coma Scale Eye Opening: Spontaneous Verbal Response: Oriented - Routine Psychiatric Exam Present: normal affect, cooperative Assessment and Plan - Assessment (1) Atrial fibrillation with RVR Code(s): I48.91 - Unspecified atrial fibrillation Status: Acute (2) Lung mass Code(s): R91.8 - Other nonspecific abnormal finding of lung field Status: Acute (3) Chest pain, rule out acute myocardial infarction Code(s): R07.9 - Chest pain, unspecified Status: Acute - Assessment and Plan A/P- CP- cardiology consult, LUNG CA- oncology consult, bx adenoca, CT w/o output, consult pulm for timing of removal of ct tube. cxr ordered. AFIB RVR- digoxin, holding home dose diltiazem, on metoprolol, might have watchman placed as outpatient with dr bloom, DCF, ef 60 % CAD SZ- dilantin and phenobarb CHRONIC PAIN SYNDROME- continue percocet GIB HX- monitor, asa, DVT HX
--- NOTE | 2018-11-29 10:55 | XR ---
EXAM DATE: 11/29/2018 10:40 AM EST AGE/SEX: 83 years / Female INDICATIONS: Status post chest tube placement. CLINICAL DATA: This is the patient's subsequent encounter. Patient reports that signs and symptoms h ave been present for 4 - 6 days and indicates a pain score of 0/10. MEDICAL/SURGICAL HISTORY: Hypertension. DVT. AFIB. None. [place] [facility] [place]. . FINDINGS: Left chest tube remains in place. No pneumothorax seen. Mild atelectasis at the left lung base again noted. Heart size stable, within normal limits. CONCLUSION: 1. No pneumothorax. Small-caliber left chest tube again noted. 2. Mild left base atelectasis. Electronically signed by: Balbir Alvarez MD Board Certified Radiologist 11/29/2018 10:54 AM EST
--- NOTE | 2018-11-29 14:17 | P.PNONC ---
Subjective Interval history: Patient seen earlier in the day. She is sleeping on approach, awakens easily to voice. She is asking when her chest tube will be removed. It is currently clamped off. Pathology report received, discussed with patient. Questions were answered. Objective Vital Signs/Intake & Output: Vital Signs 11/28/18 16:00 11/28/18 16:06 11/28/18 19:54 Temperature 97.4 F L Pulse Rate 96 H 91 H 78 Respiratory Rate 17 Blood Pressure 111/60 Pulse Oximetry 96 11/28/18 20:00 11/29/18 00:00 11/29/18 00:01 Temperature 97.6 F 99.2 F Pulse Rate 75 97 H 121 H Respiratory Rate 16 16 Blood Pressure 102/56 L 102/58 L Pulse Oximetry 95 93 L 11/29/18 03:51 11/29/18 04:00 11/29/18 08:00 Temperature 97.8 F 97.5 F L Pulse Rate 118 H 102 H 79 Respiratory Rate 16 18 Blood Pressure 125/73 110/61 Pulse Oximetry 94 L 95 11/29/18 08:50 11/29/18 10:00 11/29/18 12:00 Temperature 97.2 F L Pulse Rate 112 H 76 Respiratory Rate 18 Blood Pressure 99/48 L Pulse Oximetry 94 L 94 L Intake & Output 11/28/18 11/29/18 11/29/18 18:59 06:59 18:59 Intake Total 1720 / 1720 240 / 240 Output Total 0 / 0 600 / 600 Balance 1720 / 1720 -360 / -360 Weight 75.9 kg Intake: IV 1000 / 1000 NS Inj 1,000 ML @ 42 mls/hr IV. 1000 / 1000 CONT .[id number] [facility] Rx#:[id number] Oral 720 / 720 240 / 240 Output: Urine 600 / 600 Chest Tube Drainage 0 / 0 Left 0 / 0 Other: # Voids 4 Date of Last Bowel Movement 11/28/18 # Bowel Movements 0 Result Diagrams: 11/26/18 10:05 11/26/18 10:05 Culture Results: Microbiology 11/25/18 11:00 Acid Fast Bacilli Smear - Final Abscess - Lung No acid fast bacilli seen 11/25/18 11:00 Gram Stain - Final Tissue - Lung Wound Culture - Final No growth in 72 hours (aerobically and anaerobically) Imaging Studies: Impressions Chest X-Ray 11/28/18 00:00 CONCLUSION: Left chest tube remains in place. No pneumothorax. Mild chronic interstitial opacities are again seen. Chest X-Ray 11/29/18 06:00 CONCLUSION: 1. Stable left apical chest tube without pneumothorax. 2. Stable mild airspace disease at the left lung base, presumably atelectasis. Chest X-Ray 11/29/18 10:00 CONCLUSION: 1. No pneumothorax. Small-caliber left chest tube again noted. 2. Mild left base atelectasis. Medications: Active Medications Generic Name Dose Route Start Last Admin Trade Name Freq PRN Reason Stop Dose Admin Digoxin 250 mcg 11/26/18 09:00 11/29/18 09:04 Lanoxin PO 250 mcg DAILY CARLYLE Administration Gabapentin 800 mg 11/25/18 21:00 11/29/18 09:03 Neurontin PO 800 mg BID CARLYLE Administration Metoprolol Tartrate 25 mg 11/25/18 21:00 11/29/18 09:03 Lopressor PO 25 mg BID CARLYLE Administration Oxycodone/Acetaminophen 1 tab 11/27/18 12:00 11/29/18 12:15 Percocet 10/325 Mg PO 1 tab Q4HR CARLYLE Administration Phenobarbital 64.8 mg 11/25/18 21:00 11/29/18 09:03 Phenobarbital PO 64.8 mg BID CARLYLE Administration Phenytoin Sodium 100 mg 11/26/18 18:00 11/29/18 12:18 Dilantin PO 100 mg TID CARLYLE Administration Objective Remarks: GENERAL: Elderly female patient, in no acute distress. SKIN: Warm and dry. Gauze dressing to left lateral back, dry/intact. HEAD: Normocephalic. EYES: No scleral icterus. No injection or drainage. NECK: Supple, trachea midline. CARDIOVASCULAR:+ S1/S2 without murmurs. RESPIRATORY: Posterior breath sounds clear, equal bilaterally. Nonlabored. Left anterior pigtail chest tube currently clamped. GASTROINTESTINAL: Abdomen soft, non-tender, nondistended. EXTREMITIES: No cyanosis, or edema. Bilateral sequentials in place. MUSCULOSKELETAL: Adequate muscle tone. NEUROLOGICAL: No obvious focal deficit. Sleeping on approach awakens easily to voice, alert, and oriented x3. PSYCHIATRIC: Appropriate mood and affect; insight and judgment normal. Assessment/Plan - Plan Patient currently hospitalized for atrial fibrillation and RVR. She was subsequently found to have a 2.6 cm left lower lobe nodule. Status post biopsy. Plan: 1. 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 Left chest tube currently clamped. Denies any shortness of breath. 2. Atrial fibrillation, management per attending and cardiology. 3. Discussed pathology findings with the patient. - Attending Statement Pt seen in room. Path reviewed with pt and her . Pt exploring surgical option and does not want chemo or XRT. Will stand by and follow up.
--- NOTE | 2018-11-29 15:19 | XR ---
EXAM DATE: 11/29/2018 3:16 PM EST AGE/SEX: 83 years / Female INDICATIONS: Post chest tube removal from left side. CLINICAL DATA: This is the patient's subsequent encounter. Patient reports that signs and symptoms h ave been present for 4 - 6 days and indicates a pain score of 0/10. MEDICAL/SURGICAL HISTORY: Hypertension. DVT, A-fib Chest tube, left. COMPARISON: [facility] – [place], [place]ST EXPIRATION ONLY, 11/29/2018. . FINDINGS: Left chest tube has been removed. No pneumothorax. Mild left base and right midlung atelectasis. Mild chronic diffuse interstitial opacities. Heart size stable, within normal limits. CONCLUSION: Left chest tube out. No pneumothorax. Electronically signed by: Balbir Alvaerz MD Board Certified Radiologist 11/29/2018 3:17 PM EST
[2018-11-30] MEDS: oxyCODONE/Acetaminophen 10/325 Tablet PO SCH ×3 (00:42→08:50)
[2018-11-30 01:13] VITALS: RESP 16
[2018-11-30 08:42] VITALS: BP 95/54; PULSE 76; TEMP 97.5; O2SAT 95
[2018-11-30] MEDS: Gabapentin 400 MG Capsule PO SCH (08:49)
[2018-11-30] MEDS: Metoprolol Tartrate 25 MG Tablet PO SCH (08:50)
[2018-11-30] MEDS: Phenytoin Sodium 100 MG Capsule PO SCH (08:50)
[2018-11-30] MEDS: Digoxin 250 MCG Tablet PO SCH (08:54)
--- NOTE | 2018-11-30 09:34 | P.DCO ---
- Diagnosis (1) Atrial fibrillation with RVR Status: Acute (2) Lung mass Status: Acute (3) Chest pain, rule out acute myocardial infarction Status: Acute (4) Pneumothorax after biopsy Status: Acute - Physical Therapy Order: Evaluate and treat, Improve ambulation, Strength and gait training - Occupational Therapy Order: Evaluate and treat, Improve ADL, Gross motor coordination - Home Health Nursing Order: Medical education, Signs/symptoms of disease process, Medication education-adverse effect, Wound care and dressing changes, Nursing assessment with vital signs, Telehealth - Home Health Aide Order: To assist in: Bathing and personal care, manufacturing planner and meal prep - Fashion Supervisor Order: To evaluate: Living conditions/environment, Support services Order: To provide: Long range planning, Community services - Case Management Consult Case Management Consult-Home Health: Yes - Certification I have seen patient Alana Reeves on 11/30/18. My clinical findings support the need for the requested home health care services because: Limited mobility due to disease progression, Patient has SOB, Deconditioned with increased weakness, Medication compliance is questionable, Limited ability to care for self, Need for psychosocial assistance, Impaired cognition/judgement , High risk of falls I certify that my clinical findings support that this patient is homebound because: Post-op weakness, Impaired cognitive ability/safety, Unsteady gait/balance, Unsafe to leave home unassisted, Need for psychosocial assistance, Unable to use public transportation
--- NOTE | 2018-11-30 09:45 | P.DS ---
Date of admission: 11/26/18 10:22 Primary care physician: Roshan Landrum MD Brief History from admission: 83 y CF. in my office yesterday for followup, med refills, and that she was having R side CP. Sent pt for CT chest, ended up in the ER. I was thus called for admisson for AFIB rvr, lung mass and variable vitals. PT states she has a lung mass, was told she has a high heart rate and that she is having ongoing back pain and CP. Pt seen with nurse. Seems to be at her baseline. Cardiology report reviewed. Tele reviewed. DS: Diagnosis - Discharge Diagnosis (1) Atrial fibrillation with RVR Status: Acute (2) Lung mass Status: Acute (3) Chest pain, rule out acute myocardial infarction Status: Acute (4) Pneumothorax after biopsy Status: Acute DS: Medications - Discharge Medications Prescriptions: digoxin 250 mcg PO DAILY #90 tab metoprolol tartrate 25 mg PO BID #120 tab DS: Summary Hospital Course: see above hpi. ct removed, lung bx shows adeno ca. requests to dc home with , conferenced with , "will take her to SNF if she declines or unable to care for her needs" - Time Spent with Patient Total time spent providing and/or coordinating discharge services: Greater than 30 minutes - Quality: AMI Clinical Trial Participant: No - Quality: VTE Deep Vein Thrombosis/Pulmonary Embolism Present on Admission: No Exam Vital signs: Vital Signs 11/29/18 10:00 11/29/18 12:00 11/29/18 16:00 Temperature 97.2 F L Pulse Rate 71 75 Respiratory Rate 18 Blood Pressure 99/48 L Pulse Oximetry 94 L 94 L 11/29/18 16:30 11/29/18 20:00 11/29/18 20:14 Temperature 97.6 F 98.6 F Pulse Rate 74 84 78 Respiratory Rate 16 17 Blood Pressure 96/48 L 99/50 L Pulse Oximetry 94 L 97 11/30/18 00:00 11/30/18 00:10 11/30/18 04:00 Temperature 97.8 F 97.8 F Pulse Rate 76 78 72 Respiratory Rate 16 16 Blood Pressure 107/58 L 102/54 L Pulse Oximetry 96 91 L 11/30/18 04:01 11/30/18 08:31 11/30/18 08:42 Temperature 97.5 F L Pulse Rate 74 76 Respiratory Rate 16 Blood Pressure 95/54 L Pulse Oximetry 94 L 95 Intake & Output 11/29/18 11/30/18 11/30/18 18:59 06:59 18:59 Intake Total 360 / 360 240 / 240 Output Total 1700 / 1700 Balance 360 / 360 -1460 / -1460 Weight 75.7 kg Intake: Oral 360 / 360 240 / 240 Output: Urine 1700 / 1700 Other: # Voids 3 - Constitutional no acute distress, chronically ill appearing - Routine HEENT Exam Head: Present: normocephalic Eye: Present: EOMI - Routine Neck Exam Present: supple, full ROM - Routine Respiratory Exam Present: CTA bilaterally - Routine Cardiovascular Exam Present: irregularly irregular - Routine Abdominal Exam Present: soft, normoactive bowel sounds - Routine Extremities Exam Present: full ROM, pulses intact, normal capillary refill - Routine Skin Exam Present: intact, warm - Routine Neurological Exam Present: alert, oriented X3, normal reflexes, normal tone, normal speech Results Procedures completed during hospitalization: ct - Impressions ITS Impressions Chest CTA 11/24/18 14:37 CONCLUSION: 1. No CT evidence for pulmonary artery embolism. 2. 2.6 cm lobulated nodule in the superior segment of the left lower lobe highly concerning for primary lung malignancy. 3. Multiple nonspecific sub-5 mm mediastinal and left hilar nodes. 4. Coronary artery calcifications. Chest Tube Insertion 11/25/18 00:00 CONCLUSION: 1. Uncomplicated chest tube placement as above. Lung Biopsy CT 11/25/18 00:00 CONCLUSION: 1. CT guided biopsy left lung. 2. Aspirate from the carrier needle was placed in a sterile culture tube for Gram stain, culture and sensitivity. 3. Small postprocedural pneumothorax. Chest X-Ray 11/29/18 10:00 CONCLUSION: 1. No pneumothorax. Small-caliber left chest tube again noted. 2. Mild left base atelectasis. Discharge Plan - Discharge Disposition Patient Disposition: /Home Health Service - Discharge Condition Condition: Good - Discharge Order Discharge Orders: Discharge Order (Routine); Ordered 11/30/18 Ordered By: Roshan Landrum - Physicians Team Primary Care Provider: Roshan Landrum Attending Provider: Roshan Landrum Other Providers: Sam Mcdonald MD ; Claudy Melgar MD ; Radha Garcia MD
--- NOTE | 2018-12-02 12:47 | IR ---
EXAM DATE: 12/01/2018 2:40 PM EST AGE/SEX: 83 years / Female INDICATIONS: REMOVAL OF CHEST TUBE COMPARISON: [facility], CHEST 1V SINGLE AP, 11/29/2018. . DEVICE(S): PROCEDURE: 1. Chest tube removal. Using aseptic technique the previously placed chest tube was easily removed in one piece and Vaseline gauze and sterile dressing was applied. Chest radiograph is to be obtained. CONCLUSION: 1. Uncomplicated chest tube removal. Electronically signed by: Mariusz Irizarry MD Board Certified Radiologist 12/02/2018 12:46 PM EST
== END 2018-11-30 10:22 | disposition home health service (06) | DRG 181 ==
LOC: NEPE 13:40 → INTOOBSV 16:15 → NEDA 16:15 → N04 18:03
PROVIDERS: ADMIT Family Medicine; ATTEND Family Medicine
DX: I48.92 Unspecified atrial flutter; I95.9 Hypotension, unspecified; I10 Essential (primary) hypertension; J95.811 Postprocedural pneumothorax; Z79.899 Other long term (current) drug therapy; Z87.891 Personal history of nicotine dependence; Z88.8 Allergy status to other drugs, medicaments and biological substances; Z86.718 Personal history of other venous thrombosis and embolism; G40.909 Epilepsy, unspecified, not intractable, without status epilepticus; I48.0 Paroxysmal atrial fibrillation; C34.32 Malignant neoplasm of lower lobe, left bronchus or lung; G89.4 Chronic pain syndrome; I25.10 Atherosclerotic heart disease of native coronary artery without angina pectoris; Z79.82 Long term (current) use of aspirin
CPT/HCPCS: 32020; 32405; 32551; 32557; 49423; 71010; 71020; 71045; 71046; 71275; 76360; 77012; 80048; 80053; 80185; 82550; 83690; 84484; 85025; 85610; 85730; 87015; 87070; 87102; 87116; 87205; 87206; 88305; 93005; 93306; 97110; 97116; 97162; 99145; 99152; 99153; 99285; C1729; C1765; C1769; J2250; J3010; J7030; Q9967